=== PATIENT | female | born 1945 | race Caucasian/White ===

== ENCOUNTER 2020-08-23 10:36 | Outpatient (REF) | payer MEDICARE, SELFPAY ==
--- NOTE | ~2020-08-23 | MM_ITS ---
EXAMINATION: BONE DENSITOMETRY CLINICAL INDICATION: Age-related osteoporosis. COMPARISON: Previous BD dated 01/08/2018 and baseline BD dated 09/03/2006. TECHNIQUE: Using a [employer] DXA System (software version: 13.1) manufactured by [employer], dual-energy x-ray absorptiometry was performed of the lumbar spine and left hip. The images are of good technical quality. Summary results are attached. FINDINGS: AP SPINE L1-L4: Current: BMD 1.050 g/cm2, Z-score 0.8, T-score -1.1, osteopenia, 2.4% increase from previous, 7.4% increase from baseline (<5% change is not significant). Prior: BMD 1.025 g/cm2. Baseline: BMD 0.978 g/cm2. LEFT FEMUR, NECK: Current: BMD 0.657 g/cm2, Z-score -0.8, T-score -2.7, osteoporosis. Prior: BMD 0.652 g/cm2. Baseline: BMD 0.725 g/cm2. LEFT FEMUR, TOTAL: Current: BMD 0.732 g/cm2, Z-score -0.4, T-score -2.2, osteopenia, 0.1% increase from previous, 9.7% decrease from baseline (<5% change is not significant). Prior: BMD 0.731 g/cm2. Baseline: BMD 0.811 g/cm2. IDENTIFIED RISK FACTORS: Osteoporosis, history of fracture (adult), tobacco use (current smoker), family history (parental hip fracture), anticonvulsant, menopause. HISTORY OF FRACTURE: Ankle. MEDICATIONS: Calcium supplements or multivitamin, vitamin D. MM/XR DEXA axial skeleton IMPRESSION: 1. DIAGNOSIS: Osteoporosis based on the lowest T-score value of -2.7 in the femoral neck applying World Health Organization criteria. 2. 10-YEAR FRACTURE RISK PREDICTION, FRAX: Major osteoporotic fracture (clinical spine, forearm, hip or shoulder) 57.3%. Hip fracture 48.0%. 3. Treatment Recommendations: NOF guidelines recommend consideration for treatment in postmenopausal women and men age 50 and older presenting with the following: -A hip or vertebral (clinical or morphometric) fracture. -T-score less than or equal to -2.5 at the femoral neck or spine after appropriate evaluation to exclude secondary causes. -Low bone mass at the hip or spine and a 10-year fracture probability by FRAX of greater than or equal to 3% for hip fracture or greater than or equal to 20% for major osteoporotic fracture based on the [place] adapted WHO algorithm. 4. Other Recommendations: All treatment decisions require clinical judgment and consideration of individual patient factors, including patient preferences, comorbidities, previous drug use, risk factors not captured in the FRAX model (e.g. frailty, falls, vitamin D deficiency, increased bone turnover, interval significant decline in bone density) and possible under or overestimation of fracture risk by FRAX. Additional medical evaluation for secondary cause of low bone mineral density may be appropriate. FUTURE SCAN RECOMMENDATION: People with diagnosed cases of osteoporosis or at high risk for fracture should have regular bone mineral density tests. For patients eligible for Medicare, routine testing is allowed once every 2 years. The testing frequency can be increased to one year for patients who have rapidly progressing disease, those who are receiving or discontinuing medical therapy to restore bone mass, or have additional risk factors.
== END 2020-08-23 10:37 | disposition home or self-care (01) ==
LOC: HO.MAMMO 10:36
PROVIDERS: PCP Internal Medicine; Visit Provider Internal Medicine
DX: M81.0 Age-related osteoporosis without current pathological fracture (principal); F17.210 Nicotine dependence, cigarettes, uncomplicated; Z79.899 Other long term (current) drug therapy
CPT/HCPCS: 77080

== ENCOUNTER 2022-09-30 10:09 | Outpatient (REF) | payer MEDICARE, SELFPAY ==
--- NOTE | ~2022-09-30 | MM_ITS ---
EXAMINATION: BONE DENSITOMETRY CLINICAL INDICATION: Age-related osteoporosis without current pathological fracture. COMPARISON: Previous BD dated 08/23/2020 and baseline BD dated 09/03/2006. TECHNIQUE: Using a [employer] DXA System (software version: 13.1) manufactured by [employer], dual-energy x-ray absorptiometry was performed of the lumbar spine and left hip. The images are of good technical quality. Summary results are attached. FINDINGS: AP SPINE L1-L4: Current: BMD 0.997 g/cm2, Z-score 0.4, T-score -1.5, osteopenia, 5.0% decrease from previous, 1.9% increase from baseline (<5% change is not significant). Prior: BMD 1.050 g/cm2. Baseline: BMD 0.978 g/cm2. LEFT FEMUR, NECK: Current: BMD 0.630 g/cm2, Z-score -0.9, T-score -2.9, osteoporosis. Prior: BMD 0.657 g/cm2. Baseline: BMD 0.725 g/cm2. LEFT FEMUR, TOTAL: Current: BMD 0.729 g/cm2, Z-score -0.3, T-score -2.2, osteopenia, 0.4% decrease from previous, 10.1% decrease from baseline (<5% change is not significant). Prior: BMD 0.732 g/cm2. Baseline: BMD 0.811 g/cm2. IDENTIFIED RISK FACTORS: History of adult fracture. Osteoporosis. Current smoker. Parental hip fracture. Menopause. Anticonvulsant. HISTORY OF FRACTURE: Other. MEDICATIONS: Calcium supplement and/or multivitamin. Vitamin D. MM/XR DEXA axial skeleton IMPRESSION: 1. DIAGNOSIS: Osteoporosis based on the lowest T-score value of -2.9 in the femoral neck applying World Health Organization criteria. 2. 10-YEAR FRACTURE RISK PREDICTION, FRAX: According to the guidelines, FRAX calculation should only be performed on patients in the osteopenia bone density category.?Therefore, FRAX was not performed on this patient.? 3. Treatment Recommendations: NOF guidelines recommend consideration for treatment in postmenopausal women and men age 50 and older presenting with the following: -A hip or vertebral (clinical or morphometric) fracture. -T-score less than or equal to -2.5 at the femoral neck or spine after appropriate evaluation to exclude secondary causes. -Low bone mass at the hip or spine and a 10-year fracture probability by FRAX of greater than or equal to 3% for hip fracture or greater than or equal to 20% for major osteoporotic fracture based on the [place] adapted WHO algorithm. 4. Other Recommendations: All treatment decisions require clinical judgment and consideration of individual patient factors, including patient preferences, comorbidities, previous drug use, risk factors not captured in the FRAX model (e.g. frailty, falls, vitamin D deficiency, increased bone turnover, interval significant decline in bone density) and possible under or overestimation of fracture risk by FRAX. Additional medical evaluation for secondary cause of low bone mineral density may be appropriate. FUTURE SCAN RECOMMENDATION: People with diagnosed cases of osteoporosis or at high risk for fracture should have regular bone mineral density tests. For patients eligible for Medicare, routine testing is allowed once every 2 years. The testing frequency can be increased to one year for patients who have rapidly progressing disease, those who are receiving or discontinuing medical therapy to restore bone mass, or have additional risk factors.
== END 2022-09-30 10:10 | disposition home or self-care (01) ==
LOC: HO.MAMMO 10:09
PROVIDERS: PCP Internal Medicine; Visit Provider Internal Medicine
DX: Z12.31 Encounter for screening mammogram for malignant neoplasm of breast (principal); Z13.820 Encounter for screening for osteoporosis; Z78.0 Asymptomatic menopausal state; M81.0 Age-related osteoporosis without current pathological fracture
CPT/HCPCS: 77063; 77067; 77080

== ENCOUNTER → 2022-09-30 10:15 | Outpatient (BNV) | payer MEDICARE, SELFPAY | PROVIDERS: PCP Internal Medicine; Visit Provider Radiology Diagnostic Radiology | DX: M81.0 Age-related osteoporosis without current pathological fracture (principal) | CPT/HCPCS: 77063; 77067; 77080 ==

== ENCOUNTER 2023-10-05 10:07 | Outpatient (REF) | payer MEDICARE, SELFPAY ==
--- NOTE | ~2023-10-05 | MM_ITS ---
EXAMINATION: MM SCREENING DIGITAL BREAST TOMOSYNTHESIS, BILATERAL CLINICAL INFORMATION: Screening. Asymptomatic. COMPARISON: Mammography: This study is compared with prior exams dating back to 2017. TECHNIQUE: Digital breast tomosynthesis is performed in both the craniocaudal and mediolateral oblique views along with computer-aided detection (CAD). Synthesized 2D images are generated from the tomosynthesis. FINDINGS: The breasts are heterogeneously dense, which may obscure small masses (ACR BI-RADS breast composition Category c). There are no significant masses, abnormal calcifications, or other abnormalities. MM/MM tomosynthesis screening BI IMPRESSION: No mammographic evidence of malignancy. ASSESSMENT: BI-RADS BI-RADS 1 - Negative RECOMMENDATION: Routine annual mammography screening. 1 year F/U This examination should not preclude the clinical evaluation of a suspicious palpable abnormality. This patient's information was entered into a reminder system with a target due date for their next mammogram. Electronically signed by: Diana Hood MD 10/29/2023 10:31 PM EDT
== END 2023-10-05 10:08 | disposition home or self-care (01) ==
LOC: HO.MAMMO 10:07
PROVIDERS: PCP Internal Medicine; Visit Provider Internal Medicine
DX: Z12.31 Encounter for screening mammogram for malignant neoplasm of breast (principal)
CPT/HCPCS: 77063; 77067

== ENCOUNTER → 2023-10-05 10:30 | Outpatient (BNV) | payer MEDICARE, SELFPAY | PROVIDERS: PCP Internal Medicine; Visit Provider Radiology Diagnostic Radiology | DX: Z12.31 Encounter for screening mammogram for malignant neoplasm of breast (principal) | CPT/HCPCS: 77063; 77067 ==

== ENCOUNTER 2023-12-21 10:27 | Outpatient (AMB) | payer MEDICARE, SELFPAY ==
--- NOTE | 2023-12-21 10:37 | HO.SPINEOV ---
Intake Visit Reasons: Low back pain with left side sciatica Intake Note: Mrs. Huerta is here today c/o low back pain with left sided sciatica that radiates down to the legs. [employer] Required: No Allergies No Known Allergies Allergy (Verified 12/21/23 10:38) Assessment & Plan Assessment & Plan (1) Lumbar disc herniation: Code(s): M51.26 - Other intervertebral disc displacement, lumbar region Category: Medical Plan Dear Dr jaramillo, Thank you for referring Mrs Huerta to our office today. She is a very nice 78-year-old female with a previous history L5-S1 diskectomy done in 1984, known spinal stenosis at L2-3 who was standing in line on November 11 waiting for something at a store apparently and she felt some tingling go down her leg and then within a few minutes a severe sharp shooting pain down her left leg into her lateral thigh, into her lateral calf going into her ankle. She had to sit down almost immediately and from there the pain only intensified. Over the last 6 weeks her life has been in agony dealing with this pain and discomfort. She tried a number of conservative things like a steroid pack, oxycodone, gabapentin, Motrin, Tylenol etc.. Nothing seems to be touching the pain. She can barely stand and walk and get around the house. She has is in tears all day just trying to get through daily activities of living. She did not do any physical therapy at this point because she just been in too much pain. She did not do any injections either, she has had them in the past and they were not very helpful. No bowel or bladder incontinence. She does have weakness of her left foot however. She did fall down the stairs a few weeks back because her leg would not hold her when she is trying to go downstairs. She underwent an MRI showing a large left L4-5 herniated disc and was sent in for an urgent referral. PMH: History of hypertension, high cholesterol, osteoporosis, osteoarthritis, 3.3 cm AAA. previous back surgery in 1984 at L5-S1, cholecystectomy in 1967. Denies any cardiac, pulmonary, liver, GI, major abdominal surgeries, coagulopathies, cancer Social hx: She has been on and off smoker for better part of her life, she smokes just a few cigarettes a day. She does not drink or use any recreational drugs Medications: Oxycodone, Celebrex, gabapentin, losartan, pravastatin, omeprazole, [place] threes, calcium Celebrex Allergies: None Physical exam: She is awake alert oriented, she comes into the office today and a walker. She is unable to stand up out of a chair on her own, it took me and her to help her get into an upright position. She was screaming in the office in the amount of pain she was in just trying to bear weight on her legs. It seemed to be a little bit better when she was eventually able to get up to the walker. She has a 3/5 weakness of her left dorsiflexion and loss of sensation on the outer ankle into the top of her foot. Imaging review: [facility] MRI done just a few weeks ago shows degenerative disc disease at L2-3 with moderate to severe stenosis, previous surgical changes at L5-S1 with what looks like auto fusion of the disc. At L4-5 on the left there is a large extruded disc fragment severely compressing the left L5 nerve. It seems to be tucked up behind the body of L4. Impression: 78-year-old female presents with a left L5 radiculopathy secondary to a large fragmented disc at L4-5 which is herniated and extended superiorly up into the space behind the body of L4. She has been in agony for 6 weeks, barely able to get around the house for even simple activities. She is barely able to stand up here today in the office without significant amounts of pain. She is also developing foot weakness, which is currently 3/5. I showed her her imaging, discussed the natural history of herniated disc. We did go over the fact that herniated disc generally will go away if given enough time, however there is no way to know how long it will take. Given the amount of agony that she is in and her foot weakness, I think we should move in the direction of surgery. I do not think there will be any role for physical therapy here. She has done shots in the past and they have not been very helpful. I will review her case with Dr. Tai, but I tentatively put her on for this week, December 23. Pt was given risk and benefits of surgery including but not limited to infection, hematoma , nerve injury,durotomy, weakness,bowel/bladder injury, persistent pain, recurrent disc hernia as well as the option to continue with conservative treatment and patient wishes to proceed with surgery. Pt is aware they should stop their motrin, aspirin 7 days prior to surgery. All questions were answered to the best of our ability. If there is anything about this patients medical history that we have overlooked or concerns you have about us proceeding with surgery we would appreciate any input you can offer. Thank you for allowing us to care for your patient. The total time spent with this visit with this patient was 45 minutes reviewing history, physical exam, lumbar imaging review, and implementation of treatment plan or further diagnostic testing Jeison Tai MD,PhD [facility] Coding Level of Care Code New Pt Level 4 (90698) Diagnoses Lumbar disc herniation M51.26
== END 2023-12-21 12:06 | disposition home or self-care (01) ==
PROVIDERS: PCP Internal Medicine; Referring Provider Internal Medicine; Visit Provider Physician Assistant
DX: M51.26 Other intervertebral disc displacement, lumbar region (principal)
CPT/HCPCS: 99204

== ENCOUNTER → 2023-12-21 10:27 | Outpatient (BNVA) | payer MEDICARE, SELFPAY | PROVIDERS: PCP Internal Medicine; Referring Provider Internal Medicine; Visit Provider Physician Assistant | DX: M51.26 Other intervertebral disc displacement, lumbar region (principal) | CPT/HCPCS: 99202 ==

== ENCOUNTER 2023-12-24 11:18 | Day surgery (SDC) | payer MEDICARE, SELFPAY ==
[2023-12-22 10:29] VITALS: BMI 23.5
--- NOTE | 2023-12-22 14:38 | HO.ANESPROP2 ---
Documented by User: Ana Hurtado NP 12/23/23 12:09 HPI - Anesthesia Eval Consult details Narrative: 78yo F for Left L4-5 Microlumber discectomy PMFSH Active Problems Active Problems: All Active Problems Lumbar disc herniation (Acute) Past Medical History Medical History GERD (gastroesophageal reflux disease) Migraine headache Aneurysm of infrarenal abdominal aorta Osteoarthritis Osteoporosis Elevated cholesterol HTN (hypertension) Spinal stenosis Surgical History Surgical History Hx of breast biopsy Hx of cholecystectomy Hx of lumbar discectomy History of esophagogastroduodenoscopy (EGD) H/O colonoscopy Hx of arthroscopic knee surgery Social History Social History Do you presently have visiting nurse or other home services: No Comment: using walker currently due to back issues Patient Tobacco Use Status: Current everyday Tobacco user Tobacco use type: Cigarette Cigarettes Per Day: 3 Years Smoked: 25 Use of substances other than those prescribed or required for medical reasons: No Have you been hit, kicked, punched, or otherwise hurt by someone within the past year? If so, by whom?: No Spiritual Healthcare Practices: none Jehovah'S Witness Healthcare Practices: Jewish Cultural Healthcare Practices: none Are you DNR?: No Advance Directives Information Provided: Yes (as above noted) Advance Directives on File: No Recently lost weight without trying: Yes How much weight loss: 2-13 pounds Eating poorly because of decreased appetite: Yes Nutrition screen score: 4 Nutrition Risks: Surgical patient >75years FDLMP: n/a : No Poor oral hygiene: No Meds Allergies Allergy/AdvReac Type Severity Reaction Status Date / Time No Known Allergies Allergy Verified 12/24/23 11:59 Home Medications ?Medication ?Instructions ?Recorded ?Confirmed ?Last Taken ?Type [id number]-[id number] 250 1 tab PO Q4-6H PRN Migraine 12/22/23 12/22/23 12/17/23 History mg-250 mg-65 mg tablet (Excedrin Headache Migraine) calcium carbonate 600 mg-vitamin 1 tab PO DAILY 12/22/23 12/22/23 12/21/23 History D3 20 mcg (800 unit) chewable tablet (Caltrate 600 plus D) celecoxib 200 mg capsule 200 mg PO DAILY 12/22/23 12/22/23 12/21/23 History coenzyme Q10 100 mg capsule (Co 100 mg PO DAILY 12/22/23 12/22/23 12/21/23 History Q-10) cyclobenzaprine 5 mg tablet 5 - 10 mg PO Q12H PRN muscle spasm 12/22/23 12/22/23 12/17/23 History gabapentin 300 mg capsule 300 mg PO TID 12/22/23 12/22/23 12/21/23 History glucosamine sulfate 500 mg tablet 500 mg PO DAILY 12/22/23 12/22/23 12/21/23 History (Glucosamine) losartan 25 mg tablet 25 mg PO DAILY 12/22/23 12/22/23 12/22/23 History omeprazole 20 mg capsule,delayed 20 mg PO BID 12/22/23 12/22/23 12/24/23 History release oxycodone 5 mg tablet 10 mg PO Q6H PRN Pain 12/22/23 12/22/23 12/24/23 History pravastatin 80 mg tablet 80 mg DAILY 12/22/23 12/22/23 12/21/23 History tizanidine 2 mg tablet 2 mg PO TID 12/22/23 12/22/23 12/17/23 History turmeric 400 mg capsule 400 mg PO DAILY 12/22/23 12/22/23 12/21/23 History Exam Height,Weight and Vital Signs: Height 5 ft 3 in Weight 60.3 kg Pertinent Lab Results Pertinent Lab Results: CBC and BMP 10/2023 from outside facility WNL Assessment and Plan Assessment Anesthesia Assessment: Chart Reviewed Documented by User: Anne Mancilla MD 12/24/23 13:51 HPI - Anesthesia Eval Consult details Narrative: 78yo F for Left L4-5 Microlumber discectomy Patient fell down the stairs about 2.5 to 3 weeks ago. 7 stairs. Fell on face. Leg gave way. No loss of consciousness. Did not seek medical care. No change in character of headaches. Ecchymosis face- healing. [facility] Past Medical History Medical History GERD (gastroesophageal reflux disease) Migraine headache Aneurysm of infrarenal abdominal aorta Osteoarthritis Osteoporosis Elevated cholesterol HTN (hypertension) Spinal stenosis Family History Family history of problems with anesthesia: No Surgical History Surgical History Hx of breast biopsy Hx of cholecystectomy Hx of lumbar discectomy History of esophagogastroduodenoscopy (EGD) H/O colonoscopy Hx of arthroscopic knee surgery History of Problems with Anesthesia: No Social History Social History Do you presently have visiting nurse or other home services: No Comment: using walker currently due to back issues Patient Tobacco Use Status: Current everyday Tobacco user Tobacco use type: Cigarette Cigarettes Per Day: 3 Years Smoked: 25 Use of substances other than those prescribed or required for medical reasons: No Have you been hit, kicked, punched, or otherwise hurt by someone within the past year? If so, by whom?: No Spiritual Healthcare Practices: none Jehovah'S Witness Healthcare Practices: Jewish Cultural Healthcare Practices: none Are you DNR?: No Advance Directives Information Provided: Yes (as above noted) Advance Directives on File: No Recently lost weight without trying: Yes How much weight loss: 2-13 pounds Eating poorly because of decreased appetite: Yes Nutrition screen score: 4 Nutrition Risks: Surgical patient >75years FDLMP: n/a : No Poor oral hygiene: No Meds Allergies Allergy/AdvReac Type Severity Reaction Status Date / Time No Known Allergies Allergy Verified 12/24/23 11:59 Home Medications ?Medication ?Instructions ?Recorded ?Confirmed ?Last Taken ?Type dnhwblm-swvhjokowqphm-sruzonvb 250 1 tab PO Q4-6H PRN Migraine 12/22/23 12/22/23 12/17/23 History mg-250 mg-65 mg tablet (Excedrin Headache Migraine) calcium carbonate 600 mg-vitamin 1 tab PO DAILY 12/22/23 12/22/23 12/21/23 History D3 20 mcg (800 unit) chewable tablet (Caltrate 600 plus D) celecoxib 200 mg capsule 200 mg PO DAILY 12/22/23 12/22/23 12/21/23 History coenzyme Q10 100 mg capsule (Co 100 mg PO DAILY 12/22/23 12/22/23 12/21/23 History Q-10) cyclobenzaprine 5 mg tablet 5 - 10 mg PO Q12H PRN muscle spasm 12/22/23 12/22/23 12/17/23 History gabapentin 300 mg capsule 300 mg PO TID 12/22/23 12/22/23 12/21/23 History glucosamine sulfate 500 mg tablet 500 mg PO DAILY 12/22/23 12/22/23 12/21/23 History (Glucosamine) losartan 25 mg tablet 25 mg PO DAILY 12/22/23 12/22/23 12/22/23 History omeprazole 20 mg capsule,delayed 20 mg PO BID 12/22/23 12/22/23 12/24/23 History release oxycodone 5 mg tablet 10 mg PO Q6H PRN Pain 12/22/23 12/22/23 12/24/23 History pravastatin 80 mg tablet 80 mg DAILY 12/22/23 12/22/23 12/21/23 History tizanidine 2 mg tablet 2 mg PO TID 12/22/23 12/22/23 12/17/23 History turmeric 400 mg capsule 400 mg PO DAILY 12/22/23 12/22/23 12/21/23 History Exam Height,Weight and Vital Signs: Height 5 ft 3 in Weight 60.3 kg Vital Signs Temp Pulse Resp BP Pulse Ox O2 Del Method 12/24/23 12:26 97.9 F 71 18 120/61 98 Room Air Airway Mallampati Class: II TM Dist: >3cm Neck ROM: Full Loose/Missing/Broken Teeth: No Heart: RRR Lungs: CTAB Assessment and Plan Assessment Anesthesia Assessment: Anesthesia Plan Discussed and Chart Reviewed Final Anesthetic Review Family History of Problems with Anesthesia: No History of Problems with Anesthesia: No NPO: Yes ASA Class: III Final Preanesthetic Review: No Changes in Pt Med Stat, Meds/Allgs Chart Reviewed, Consent Obtained/Reviewed and Anes Risks/Benef Reviewed Patient Risk: Intermediate Procedure Risk: Low Assessment/Block/Sedation in SS: Assess/Block/Sedation-SS Anesthetic Plan Anesthetic Plan: GA Disposition: Standard PACU
[2023-12-24] VITALS (11 sets, daily range): BP systolic 120–159; BP diastolic 50–62; PULSE 71–90; RESP 12–18; TEMP 36.1–36.6; O2SAT 95–100; BMI 23.2
[2023-12-24] MEDS: Gabapentin 300 MG CAPSULE PO (12:16)
[2023-12-24] MEDS: Lactated Ringers 1,000 ML 100 ML IVCONT (12:16)
[2023-12-24] MEDS: methocarbamoL 750 MG TABLET PO (12:16)
--- NOTE | 2023-12-24 12:23 | PC.NURSE ---
Dr. Mancilla aware that patient stated that she fell approx. 2.5 weeks ago down 7 stairs and hit her head on a table corner due to leg weakness per pt. Patient stated that she did not go to ER. Stated that she did not lose conciousness or feel as if she had a concussion. Healing bruising noted to forehead and left side of face/jaw. Per doctor - ok to proceed no interventions at this time.
--- NOTE | 2023-12-24 12:26 | MHC.SHP ---
Pre-Procedural Eval Section A - 24 Hr Update-Section A only Date of Service: 12/24/23 The patient is an INPATIENT: No Section B - Complete if H&P > 30 days Chief Complaint: Other intervertebral disc displacement, lumbar Details of Present Illness: Left lumbar radiculopathy Allergies: Allergies Allergy/AdvReac Type Severity Reaction Status Date / Time No Known Allergies Allergy Verified 12/24/23 11:59 Review of Systems Sugical H&P ROS: Negative: Constitution, Cardiovascular, Respiratory, Neurological, Psychiatric, Hem-Onc, Allergic/Immunologic, Gastrointestinal, Genitourinary, Musculoskeletal, Integumentary, Endocrine and Eyes/Ears/Nose/Throat Exam Surgical H&P Exam: Normal: HEENT, Normal: Heart, Normal: Lungs, Normal: Extremities, Normal: Abdomen and Normal: Skin and Significant Findings: Neurological (Partial footdrop left) Plan Diagnosis/Plan: Unchanged I have reviewed the history and physical and performed a pertinent physical examination on my patient. No changes have occurred unless specified. Left L4-5 microdiskectomy Time Spent With Patient Time: Total time managing care of this patient today _5___ minutes.
--- NOTE | 2023-12-24 14:20 | W.PM.OPN ---
Operative Note Operative Note Date of Service: 12/24/23 Narrative: Preoperative diagnosis: Left L4, L5 lumbar radiculopathy due to disc herniation Postoperative diagnosis: Same Procedure: Left L 4-5 lumbar microdiskectomy with microscope Surgeon: Daniel Tai MD, PhD Central Processing Technician: AUGUSTINA Breen This 78-year-old female presented with severe left leg pain and numbness and weakness. MRI shows a large extruded disc herniation with cranial migration behind the body of L4 compressing the L4 and L5 nerve roots. The patient was offered a lumbar microdiskectomy to decompress the nerve root. The procedure complications were explained. The patient was consented. The patient was brought to the operating room and endotracheally intubated. The patient was turned in a prone position on the Carlin frame. Prepping and draping was done followed by time-out. A mid lumbar incision was made followed by release of the paravertebral muscles on the left side to expose the L4-5 interspace. An intraoperative x-rays obtained to confirm the correct level. The microscope was brought in. A left L4 laminotomy was done followed by opening of the flavum ligament. The L5 nerve root was identified and retracted medially to expose the L4-5 disc space. I advanced a long nerve hook along the medial wall of the L4 pedicle and eventually I was able to retrieve a very large fragment from under the thecal sac. I was not satisfied as of yet as I thought he should be more and therefore went in again with a curved pituitary and I was able to retrieve an even larger fragment from the axilla of the L4 nerve root. Then the nervous structures started pulsating as a sign of adequate decompression. Hemostasis was done. The microscope was removed. Marcaine was injected intramuscularly.The incision was closed in two layers. Steri-Strips used to approximate the incision. An op-site were taken there was used to cover the incision. All sponge and needle counts were correct. Patient was extubated and transported in stable condition to recovery room. this procedure was done with the aid of a physician assistant loan processor who performed the initial exposure until the microscope was brought in and performed the closure of the incision. Anesthesia: General Blood loss: 25 mL Complications: None Specimen: None Surgical time: 15 minutes Disposition: Discharge home
--- NOTE | 2023-12-24 14:28 | PM.DS ---
DS: Providers Provider Date of Service: 12/24/23 Primary care physician: Prasad Claire MD DS: Summary Time Attestation Discharge Coordination Time (in mins): 15 Quality: Safe Use of Opioids Does Pt have an Active Cancer Diagnosis on the Problem List?: No Quality: Stroke Does the patient have a stroke diagnosis?: No Physical Exam Vital Signs: Vital Signs: Last Vital Signs Temp 97.9 F 12/24/23 12:26 Pulse 71 12/24/23 12:26 Resp 18 12/24/23 12:26 BP 120/61 12/24/23 12:26 Pulse Ox 98 12/24/23 12:26 O2 Del Method Room Air 12/24/23 12:26 BMI result Body Mass Index 23.2 Discharge Plan Discharge Patient Disposition: Home, Self-Care Referrals: Prasad Claire MD [Primary Care Provider] - 1 Week Discharge Medications: Continued tizanidine 2 mg tablet 2 mg PO TID pravastatin 80 mg tablet 80 mg DAILY losartan 25 mg tablet 25 mg PO DAILY omeprazole 20 mg capsule,delayed release(DR/EC) 20 mg PO BID cyclobenzaprine 5 mg tablet 5 - 10 mg PO Q12H PRN (Reason: muscle spasm) glucosamine sulfate [Glucosamine] 500 mg Tablet 500 mg PO DAILY Rx Instructions: administer with a meal coenzyme Q10 [Co Q-10] 100 mg Capsule 100 mg PO DAILY Caltrate 600 plus D 600 mg-20 mcg (800 unit) Tablet,Chewable 1 tab PO DAILY gabapentin 300 mg capsule 300 mg PO TID oxycodone 5 mg tablet 10 mg PO Q6H PRN (Reason: Pain) turmeric 400 mg Capsule 400 mg PO DAILY Held celecoxib 200 mg capsule 200 mg PO DAILY Hold Instructions: Resume on 12/25/23. Excedrin Migraine 250-250-65 mg Tablet 1 tab PO Q4-6H PRN (Reason: Migraine Headache) Hold Instructions: Resume on 12/25/23. Discharge Orders: Discharge Order (Routine); Ordered 12/24/23 Ordered By: Cecilio Foster Diet: Advance to usual diet Activity on Discharge: As tolerated Activity Restrictions/Additional Instructions: After your spinal surgery we ask you to observe the following restrictions/guidelines: Activity: It is normal to feel some discomfort as you increase your activity, but that will improve with time. We ask you avoid heavy lifting or acitivities that cause pain. As a general rule, 8lbs is a safe limit for lifting right after surgery. Walk as much as you feel comfortable but not to exhaustion. You will feel extra tired the first few days after surgery. Stay well hydrated. It is OK to walk up and down stairs You may return to driving when you are off narcotics (such as vicodin, oxycodone, dilaudid, etc), and you are back to normal functional capacity. If you have any concerns please check with office before driving. Return to work is specific to each patient and each surgery, so please speak with your doctor/PA at first follow up. Please bring paperwork such as FMLA at that time if you need it filled out. Medications: You filled Oxycodone 5mg for total quantity 112 pills on 12/10/23, please use these for pain control that persists despite OTC medications. Call our office next week if you need additional medication. We recommend you take 1,000mg Tylenol every 8 hours for the first few weeks after surgery, if you do not have any liver issues and can tolerate this medication. Do not exceed 4,000mg daily. We will give you a short supply of narcotics after surgery (usually one weeks worth). If you need more please call the office but do not use more than prescribed. You will need to give our office 48 hours notice if you need narcotics refilled and we do not fill narcotics on weekends or evenings. If you are on a narcotic, it is a good idea to take a stool softener such as colace or senna to avoid constipation If you take blood thinner such as aspirin, Plavix, Coumadin, Effient, Eliquis etc for conditions such as Afib, DVT, Pulmonary embolus, coronary disease, stents etc please speak with your surgeon about specific details as to when you can resume these medications. You can resume NSAIDs on post op day 1 (eg: Motrin, Naproxen, etc). Follow up: Please call the office, , after surgery to arrange a 3 week follow up for wound check. Wound Care: You may remove your dressing on the first day after surgery. ?You may ?leave open to air. Please do not remove the steri strips underneath. they will fall off on their own in one week. IT IS NORMAL FOR THE WOUND TO OOZE OR BE BLOODY FOR A FEW DAYS AFTER SURGERY. ?IF THIS HAPPENS JUST PLACE NEW DRESSING OVER IT TO AVOID STAINING CLOTHES. You may shower on post op day # 1 We ask that you do not let the water soak the wound. If it does get wet, just towel dry lightly. Please do not scrub your incision or place any type of chemical/ointment on the wound. No tub baths, pools or jacuzzis for one month. If you have any leaking or redness from your wound, or fevers, please call the office. Print Language: Italian
[2023-12-24] MEDS: fentaNYL citrate/PF 100 MCG/2 ML VIAL 25 MCG IVPUSH ×2 (15:20→15:25)
[2023-12-24] MEDS: oxyCODONE HCl Immed Release 5 MG TABLET PO (15:49)
== END 2023-12-24 16:26 | disposition home or self-care (01) ==
PROVIDERS: PCP Internal Medicine; Visit Provider Neurological Surgery
PROC: (CPT 63030; principal; 2023-12-24 14:50)
DX: M51.26 Other intervertebral disc displacement, lumbar region (principal); M51.17 Intervertebral disc disorders with radiculopathy, lumbosacral region; M19.90 Unspecified osteoarthritis, unspecified site; M81.0 Age-related osteoporosis without current pathological fracture; I71.43 Infrarenal abdominal aortic aneurysm, without rupture; I10 Essential (primary) hypertension; E78.00 Pure hypercholesterolemia, unspecified; Z79.899 Other long term (current) drug therapy; Z99.89 Dependence on other enabling machines and devices; Z98.890 Other specified postprocedural states; F17.210 Nicotine dependence, cigarettes, uncomplicated
CPT/HCPCS: 63030; J0131; J0690; J1100; J2003; J2405; J2704; J3010

== ENCOUNTER → 2023-12-24 11:18 | Outpatient (BNV) | payer MEDICARE, SELFPAY | PROVIDERS: PCP Internal Medicine; Visit Provider Neurological Surgery | DX: M51.26 Other intervertebral disc displacement, lumbar region (principal) | CPT/HCPCS: 63030; 99499 ==

== ENCOUNTER 2024-01-14 10:58 | Outpatient (AMB) | payer MEDICARE, SELFPAY ==
--- NOTE | 2024-01-14 11:05 | A.SPINEOV_ITS ---
Intake Visit Reasons: 1st post op Manager Valuation Required: No Allergies No Known Allergies Allergy (Verified 12/24/23 11:59) Assessment & Plan Assessment & Plan (1) Left hip pain: Code(s): M25.552 - Pain in left hip Category: Medical Plan Procedure: Left L 4-5 lumbar microdiskectomy Adrienne comes in today for her 1st postoperative visit after having a left-sided L4-5 lumbar microdiskectomy completed for severe left-sided shooting radiculopathy. She reports that the pain that she was having shooting down her leg has completely resolved since the surgery. Unfortunately she has had quite a bit of pain in her left hip since the surgery very well localized to the left hip joint. She feels increased pain when standing up from a seated position and denies any shooting or radicular pains down her legs when experiencing her newer left hip pain. It is unclear whether she had this preoperatively has now just noticed it since her more severe pain has subsided. Other than that, she is very satisfied with the surgery and feels that 100% of her severe shooting pain has been relieved. The pain she describes now is described as deep and sharp. No new neurological deficits. The patient rises from a seated position with the assistance of a chair predominantly citing her sharp left hip pain as the reason she needs support. When standing she grabs the area of her lateral thigh near the trochanteric bursa. Her posterior incision site is scabbed over, clean, dry, intact. I would like to see Adrienne again in 6 weeks for a subsequent follow-up visit. In the meantime I will be ordering an x-ray of her left hip to r/o any acute hip pathology. She also stated that she would be following up with her primary care for referral to an orthopedic provider to discuss her left hip issues. I informed her that I would be more than happy to refer her to our colleague Dr. Melendez in Orthopedic surgery to evaluate her for her hip issue instead. She is agreeable to this so I will place the referral. Cecilio Tai MD,PhD [facility] Orders: Orders XR hip LT min 2V Today M25.552 - Pain in left hip Referrals Orthopedics Referral M25.552 - Pain in left hip Coding Level of Care Code Global (41426) Diagnoses Left hip pain M25.552
== END 2024-01-14 11:13 | disposition home or self-care (01) ==
PROVIDERS: PCP Internal Medicine; Visit Provider Physician Assistant
DX: M25.552 Pain in left hip (principal)
CPT/HCPCS: 99024

== ENCOUNTER 2024-01-14 10:58 | Outpatient (REF) | payer MEDICARE, SELFPAY | END 2024-01-14 10:59 | disposition home or self-care (01) | LOC: HO.HOSX 10:58 | PROVIDERS: PCP Internal Medicine; Visit Provider Physician Assistant | DX: M25.552 Pain in left hip (principal) | CPT/HCPCS: 73502; 99212 ==

== ENCOUNTER 2024-02-16 08:59 | Outpatient (REF) | payer MEDICARE, SELFPAY ==
--- NOTE | ~2024-02-16 | XR_ITS ---
EXAMINATION: XR PELVIS CLINICAL INFORMATION: M25.559 - Pain in unspecified hip COMPARISON: None available. TECHNIQUE: AP view of the pelvis. FINDINGS: Mild constipation. No organomegaly. No radiopaque calculi seen in the pelvis. No bony abnormality. The soft tissues are normal. XR/XR pelvis 1-2V IMPRESSION: Mild constipation. Electronically signed by: Parviz Bell MD 02/18/2024 03:40 PM EST
== END 2024-02-16 09:00 | disposition home or self-care (01) ==
LOC: HO.HOSX 08:59
PROVIDERS: Visit Provider Physician Assistant
DX: M25.559 Pain in unspecified hip (principal); M25.552 Pain in left hip; Z98.890 Other specified postprocedural states
CPT/HCPCS: 72170; 99202

== ENCOUNTER 2024-02-16 10:54 | Outpatient (AMB) | payer MEDICARE, SELFPAY ==
--- NOTE | 2024-02-16 11:03 | A.OFFVIS_ITS ---
Intake Visit Reasons: New Pt - Left hip pain Intake Note: Adrienne is a 78 year old female who presents today as a new patient for a evaluation of her left hip pain. No hx of injruy. Hx of Back surgery on 12/24/23. Patient reports having pain in the lateral aspect of the hip and sometimes moves down to her calf. Patient mentions that her pain is worse when she is getting up in the morning. She hasn't tried any medications to help with relief. Allergies No Known Allergies Allergy (Verified 02/16/24 11:08) HPI HPI New Pt - Left hip pain: Details: Ms. Huerta is a 78-year-old female who presents to the office today for evaluation of left hip pain. She reports that she recently had surgery with Dr. Cai on 12/24/2023 for L4-L5 lumbar microdiscectomy for severe radiculopathy . She reports that after the surgery she had significant release in left leg pain numbness and weakness. However she reports that she did develop pain after surgery and gestures to the glute region as well as the lateral aspect of the hip. She denies any groin pain. [facility] Medical History GERD (gastroesophageal reflux disease) Migraine headache Aneurysm of infrarenal abdominal aorta Osteoarthritis Osteoporosis Elevated cholesterol HTN (hypertension) Spinal stenosis Surgical History Hx of breast biopsy Hx of cholecystectomy Hx of lumbar discectomy History of esophagogastroduodenoscopy (EGD) H/O colonoscopy Hx of arthroscopic knee surgery Social History (Updated 02/16/24 @ 11:10 by Mxa Green) Do you presently have visiting nurse or other home services: No Alcohol intake: never Comment: using walker currently due to back issues Patient Tobacco Use Status: Current everyday Tobacco user Tobacco use type: Cigarette Cigarettes Per Day: 3 Years Smoked: 25 Current occupational status: retired Review of Systems Const All systems reviewed & are unremarkable except as noted in HPI and below Physical Exam Const General: cooperative, healthy appearing and no acute distress Resp Effort & Inspection: normal respiratory effort and able to speak in complete sentences Cardio Rate: regular rate Peripheral pulses: Peripheral pulses 2+ throughout GI Palpation (GI): Soft to palpation Skin Lesions: no lesions Rashes: no rashes Extrem Other: Left hip: Full internal and external rotation without reports of groin pain. Full flexion and extension. Slight tenderness to palpation over the greater trochanteric bursa. 5/5 strength with resisted hip flexion, knee extension, abduction, and abduction. Able to perform straight leg raise. NVI. Assessment & Plan Assessment & Plan (1) Lumbar disc herniation: Code(s): M51.26 - Other intervertebral disc displacement, lumbar region Category: Medical (2) Left hip pain: Code(s): M25.552 - Pain in left hip Category: Medical Plan Ms. Huerta is a 78-year-old female who presents to the office today for evaluation of left hip pain. She reports that she recently had surgery with Dr. Cai on 12/24/2023 for L4-L5 lumbar microdiscectomy for severe radiculopathy. She reports that after the surgery she had significant release in left leg pain numbness and weakness. However she reports that she did develop pain after surgery and gestures to the glute region as well as the lateral aspect of the hip. She denies any groin pain. While in the office today the patient does have some slight tenderness to palpation of the greater trochanteric bursa. However, the patient declines injection at this time. Additionally we discussed the role of intra-articular cortisone injection for the left hip, however, the patient denies any groin pain on physical exam and does not have any range of motion restriction. She reports that the majority of her pain is located in the glute area. She does have a follow-up with Cecilio Foster PA-C, in the [facility] on 02/25/2024. I recommend that she continues to follow with the [facility] to continue monitoring resolution of symptoms. Should she continue to have greater trochanteric bursa pain or a new onset of groin pain she will contact me and we proceed with scheduling for cortisone injection. X-rays of the pelvis and left hip were obtained on 01/14/2024 as well as additional views in the office today and were reviewed by me, Sharon Felton PA-C, revealed arthritic changes. No acute fracture or dislocation. Orders: Orders XR pelvis 1-2V Today M25.559 - Pain in unspecified hip Coding Level of Care Code New Pt Level 3 (47869) Diagnoses Lumbar disc herniation M51.26 Left hip pain M25.552
== END 2024-02-16 11:23 | disposition home or self-care (01) ==
PROVIDERS: PCP Internal Medicine; Visit Provider Physician Assistant
DX: M51.26 Other intervertebral disc displacement, lumbar region (principal); M25.552 Pain in left hip
CPT/HCPCS: 99203

== ENCOUNTER → 2024-02-16 10:57 | Outpatient (BNV) | payer MEDICARE, SELFPAY | PROVIDERS: Visit Provider Radiology Diagnostic Radiology | DX: R10.2 Pelvic and perineal pain (principal); K59.00 Constipation, unspecified | CPT/HCPCS: 72170 ==

== ENCOUNTER 2024-02-25 10:51 | Outpatient (AMB) | payer MEDICARE, SELFPAY ==
--- NOTE | 2024-02-25 10:52 | A.SPINEOV_ITS ---
Intake Visit Reasons: 2nd post op Intake Note: Ms. Huerta is here for her 2nd post op. Drop Hammer Setter Up Required: No Allergies No Known Allergies Allergy (Verified 02/25/24 10:53) Assessment & Plan Assessment & Plan (1) Lumbar disc herniation: Code(s): M51.26 - Other intervertebral disc displacement, lumbar region Category: Medical Plan Procedure: Left L 4-5 lumbar microdiskectomy Adrienne comes in today for her second postoperative visit. To recap she was initially seen in clinic for severe left leg pain and numbness and weakness. Since her last visit she was able to follow up with our colleagues from Orthopedics who evaluated her for her left hip. She reports that they may be doing a corticosteroid injection in her left hip to help relieve some of the pain she has on that side. Other than that she feels her back pain is much more manageable, and she is able to complete her activities of daily living without significant issue. She is very functional throughout the day and only really has difficulty when attempting to navigate stairs. No new neurological deficits. The patient ambulates well and rises from seated position without difficulty. Her posterior incision site is closed and well healed. I would like Adrienne to continue following up with orthopedics as needed. We do not need any further continued routine follow up with her. Cecilio Tai MD,PhD [facility] Coding Level of Care Code Global (59806) Diagnoses Lumbar disc herniation M51.26
== END 2024-02-25 11:17 | disposition home or self-care (01) ==
PROVIDERS: Visit Provider Physician Assistant
DX: M51.26 Other intervertebral disc displacement, lumbar region (principal)
CPT/HCPCS: 99024

== ENCOUNTER → 2024-02-25 10:51 | Outpatient (BNVA) | payer MEDICARE, SELFPAY | PROVIDERS: Visit Provider Physician Assistant | DX: Z09 Encounter for follow-up examination after completed treatment for conditions other than malignant neoplasm (principal); Z87.39 Personal history of other diseases of the musculoskeletal system and connective tissue; Z98.890 Other specified postprocedural states | CPT/HCPCS: 99212 ==

== ENCOUNTER 2024-11-11 10:39 | Outpatient (REF) | payer MEDICARE, SELFPAY ==
--- OUTSIDE RECORDS SUMMARY | 2024-11-10 10:08 | XMS_ITS | Encounter Summary ---
Author Organization [facility] Address [address] [facility] [address] [place] [address] Phone Care Team Providers Care Hr Systems Analyst Name Role Phone Prasad Claire MD Primary Care Provider [phone] Prasad Claire MD Unavailable [phone] Alan Olsen MD Unavailable Winston Restrepo MD Unavailable [phone] Chirs Metz MD Unavailable Reason for Referral * Hospital - Outpatient - Closed Specialty Diagnoses / Procedures Referred By Lillie siddiqui Referred To Contact Radiology Diagnoses Infrarenal abdominal aortic aneurysm (AAA) without rupture Procedures US Aorta Duplex Complete Shilpi Thornton PA-C [address] [place] [address] Phone: tel: fax: [email or web address] Referral ID Status Reason Start Date Expiration Date Visits Re quested Visits Authorized [id number] Closed 11/02/2024 1 1 Reason for Visit * Hospital - Outpatient - Closed Specialty Diagnoses / Procedures Referred By Lillie siddiqui Referred To Contact Radiology Diagnoses Infrarenal abdominal aortic aneurysm (AAA) without rupture Procedures US Aorta Duplex Complete Shilpi Thornton PA-C [address] [place] [address] Phone: tel: fax: [email or web address]:[email or web address] Referral ID Status Reason Start Date Expiration Date Visits Re quested Visits Authorized [id number] Closed 11/02/2024 1 1 Encounter Details Date Type Department Care Team (Latest Contact Info) Description 11/10/2024 10:08 AM EDT - 11/10/2024 11:59 PM EDT Hospital Encounter [address] [address] Shilpi Thornton PA-C [address] [place] [address] [email or web address] Arrived Discharge Disposition: Home or Self Care Social History Tobacco Use Types Packs/Day Years Used Date Smoking Tobacco: Some Days Cigarettes 0.5 26 Smokeless Tobacco: Never Comments:2-3 cigarette a wee k if that-noted 10/26/23 10 cigarettes a week-noted 11/06/23 3 cigarette a week-noted 12/10/23 3-4 cigarettes a week-noted 02/11/24 6 cigarettes Qweek-noted 05/23/24 Alcohol Use Standard Drinks/Week Comments Not Currently 0 (1 standard drink = 0.6 oz pur e alcohol) last drink 09/2023 Education Answer Date Recorded Are you interested in more education? Not on claribel e 06/06/2022 Are you concerned about learning? Not on file 06/06/2022 No 06/06/2022 No 06/06/2022 Digital Access Answer Date Recorded No 07/02/2022 No 07/02/2022 Reliable internet access at home? Not on file 07/02/2022 Device with a working camera? Not on file Intimate Partner Violence Answer Date R ecorded Denied Basic Needs Not on file 10/20/2023 In the past 12 months have y ou been in a relationship with a person who hurts, threatens, or tries to control you? No 10/20/2023 Worried food would run out Not on file 10/19 In the past 12 months have y ou been in a relationship with a person who hurts, threatens, or tries to control you? No 10/20/2023 Comments No Sex and Gender Information Value Date Recorded Sex Assigned at Female 08/03/2018 8:36 AM EDT Legal Sex Female 10:08 PM EDT Gender Identity Female 08/03/2018 8:36 AM EDT Sexual Orientation Choose not to disclose 2018 8:36 AM EDT documented as of this encounter Medications at Time of Discharge pdnoaxe-aunbxfooenjgc-ddl feine (EXCEDRIN MIGRAINE) 250-250-65 mg per tablet Take 1 tablet by mouth every 6 (six) hours as needed for pain (specific location in comments). Ca cit-D3-mag#00-qbha-fbrs-m an-bor (CALTRATE 600+D) 600 mg calcium- 800 unit-50 mg Tab Take 1 tablet by mouth as directed. Once daily 5 days a week celecoxib (CELEBREX) 200 MG capsuleIndications:Chroni c bilateral low back pain without sciatica,Primary osteoarthritis, unspecified site Take 1 capsule (200 mg total) by mouth 2 (two) times a day with meals. 180 capsule 3 5 coenzyme Q10 10 mg capsule Take 100 mg by mouth daily. 0 cyclobenzaprine (FLEXERIL) 5 MG tabletIndications:Acute bilateral low back pain with left-sided sciatica 1-2 tablets q 12 hours prn back spasms 30 tablet 4 gabapentin (NEURONTIN) 300 MG capsuleIndications:Primar y osteoarthritis involving multiple joints 600mg po tid 540 capsule 3 4 glucosamine HCl 750 mg Tab Take 1 tablet by mouth daily. hydrOXYzine HCL (ATARAX) 10 MG tabletIndications:Anxiety Take 1 tablet (10 mg total) by mouth 3 (three) times a day as needed for anxiety. 10 tablet 5 losartan (COZAAR) 25 MG tabletIndications:Essenti al hypertension TAKE 1 TABLET DAILY 90 tablet 3 5 Medication-Free Text Tumeric Take 1 capsule by mouth once daily. omeprazole (PRILOSEC) 20 MG capsule TAKE 1 CAPSULE TWICE DAILY 180 capsule 3 4 oxyCODONE 5 MG immediate release tabletIndications:Bilater al hip pain,Acute low back pain with sciatica, sciatica laterality unspecified, unspecified back pain laterality Take 2 tablets (10 mg total) by mouth every 8 (eight) hours as needed for pain (specific location in comments) (Back and leg pain). Partial fill ok 42 tablet 5 pravastatin (PRAVACHOL) 80 MG tabletIndications:Pure hypercholesterolemia TAKE 1 TABLET DAILY 90 tablet 3 5 tiZANidine (ZANAFLEX) 2 MG tabletIndications:Chronic bilateral low back pain without sciatica TAKE 1 TABLET(2 MG) BY MOUTH EVERY 8 HOURS NEEDED FOR MUSCLE SPASMS 30 tablet 5 documented as of this encounter Plan of Treatment Upcoming Encounters Date Type Department Care Team (Late st Contact Info) Description 11/15/2024 9:40 AM EDT Office Visit [facility] Spine Medicine [address] [place] [address] [place] [address] Capo Vega MD [address] [place] [address], [address] [place] [address] 11/28/2024 3:00 PM EDT Office Visit [facility] Internal Medicine [address] [place] [address] Prasad Claire MD [address] [place] [address] 01/17/2025 11:30 AM EST Office Visit [facility] [address] [place] [address] [place] [address] Chidi Levy DO [address] [place] [address] documented as of this encounter Procedures Procedure Name Priority Date/Time Associated Diagnosis Comments US AORTA DUPLEX COMPLETE Routine 11/10/2024 10:46 AM EDT Infrarenal abdominal aortic aneurysm (AAA) without rupture documented in this encounter Results * US Aorta Duplex Complete (11/10/2024 10:46 AM EDT) Anatomical Region Laterality Modality Aorta Ultrasound 11/10/2024 10:4 7 AM EDT Narrative 11/10/2024 11:03 AM EDT US AORTA DUPLEX COMPLETE Referring clinician's provided indication for this examination in Epic: AAA, surveillance TECHNIQUE: A duplex ultrasound evaluation of the abdominal aorta and iliac arteries as well as the inferior vena cava was performed using a combination of olivarez scale imaging, color duplex and spectral Doppler analysis. COMPARISON: None FINDINGS: Exam Quality: Technically adequate exam demonstrates: Aorta: Proximal: Ectatic Mid: Normal Distal: Aneurysmal IVC: Patent with normal spectral Doppler waveforms. Right Common Iliac Artery: Ectatic Left Common Iliac Artery: Ectatic Duplex: Proximal aorta: Peak systolic velocity (cm/s): 97.2 Aorta Diameter Proximal (cm): 2.3 x 2.1 Mid aorta: Peak systolic velocity (cm/s): 104 Aorta Diameter Mid (cm): 1.9 x 1.9 Distal aorta: Peak systolic velocity (cm/s): 127 Aorta Diameter Distal (cm): 3.4 x 3.4 Iliac arteries: Right common Iliac artery: Peak systolic velocity (cm/s): 153 Diameter(cm): 1.1 x 1.3 Left common Iliac artery: Peak systolic velocity (cm/s): 184 Diameter (cm): 1.2 x 1 IMPRESSIONS: * Abdominal aortic aneurysm measuring up to 3.4 cm. Procedure Note Eloina Castellano MD - 11/10/2024 US AORTA DUPLEX COMPLETE Referring clinician's provided indication for this examination in Epic:AAA, surveillance TECHNIQUE: A duplex ultrasound evaluation of the abdominal aorta and iliacarteries as well as the inferior vena cava was performed using acombination of olivarez scale imaging, color duplex and spectral Doppleranalysis. COMPARISON: None FINDINGS: Exam Quality: Technically adequate exam demonstrates: Aorta: Proximal: Ectatic Mid: Normal Distal: Aneurysmal IVC: Patent with normal spectral Doppler waveforms. Right Common Iliac Artery: Ectatic Left Common Iliac Artery: Ectatic Duplex: Proximal aorta: Peak systolic velocity (cm/s): 97.2 Aorta Diameter Proximal (cm): 2.3 x 2.1 Mid aorta: Peak systolic velocity (cm/s): 104 Aorta Diameter Mid (cm): 1.9 x 1.9 Distal aorta: Peak systolic velocity (cm/s): 127 Aorta Diameter Distal (cm): 3.4 x 3.4 Iliac arteries: Right common Iliac artery: Peak systolic velocity (cm/s): 153 Diameter(cm): 1.1 x 1.3 Left common Iliac artery: Peak systolic velocity (cm/s): 184 Diameter (cm): 1.2 x 1 IMPRESSIONS: * Abdominal aortic aneurysm measuring up to 3.4 cm. us Shilpi Thornton PA-C IMG US ABDOMEN Final Result documented in this encounter Visit Diagnoses Diagnosis Infrarenal abdominal aortic aneurysm (AAA) without rupture documented in this encounter Additional Health Concerns Assessment Noted Time PHQ-2 Depression Total Score: 0 10/20/19 24 10:07 AM EDT documented as of this encounter Care Teams Hr Systems Analyst Relationship Specialty Start Date End Date Prasad Claire MD [address] [place] [address] [email or web address] PCP - General 11/27/16 Prasad Claire MD [address] [place] [address] [email or web address] Insurance Assigned Provider 05/16/23 Alan Olsen MD [address] [place] [address] [place] [address] Neurosurgery 11/28/19 Winston Restrepo MD [address] [place] [address] Dr NGUY[place] [address] Neurosurgery 12/01/19 Chris Metz MD [address] [place] [address] Interventional Pain Management 12/01/19 documented as of this encounter Additional Source Comments The information contained in this document represents components of the legal health record. It is not the complete legal health record.[facility]
--- NOTE | ~2024-11-11 | MM_ITS ---
EXAMINATION: MM SCREENING DIGITAL BREAST TOMOSYNTHESIS, BILATERAL CLINICAL INFORMATION: Screening. Asymptomatic. COMPARISON: Mammography: Comparison is made with available priors TECHNIQUE: Digital breast mammography with tomosynthesis is performed in both the craniocaudal and mediolateral oblique views along with computer-aided detection (CAD). FINDINGS: The breasts are heterogeneously dense, which may obscure small masses. There are no significant masses, abnormal calcifications, or other abnormalities. MM/MM tomosynthesis screening BI IMPRESSION: No mammographic evidence of malignancy. ASSESSMENT: BI-RADS Category 1: Negative RECOMMENDATION: Routine annual mammography screening. 1 year F/U This examination should not preclude the clinical evaluation of a suspicious palpable abnormality. This patient's information was entered into a reminder system with a target due date for their next mammogram. Electronically signed by: Beth Hammonds DO 11/19/2024 02:09 PM EDT
--- NOTE | ~2024-11-11 | MM_ITS ---
EXAMINATION: DXA BONE DENSITY AXIAL HISTORY: OSTEOPOROSIS TECHNIQUE: Cloud 66 Dual energy absorptiometry (DEXA) of the lumbar spine, total left hip, and femoral neck was performed. COMPARISON: Comparison is made with the prior examination dated 09/30/2022. FINDINGS: The bone mineral density of the lumbar spine is 1.044 g/cm2, corresponding to a T-score of -1.0, and a Z-score of 0.9. This is indicative of normal bone mineral density. This represents a BMD change of 10.0% compared to the prior exam. This is statistically significant. The bone mineral density of the left total hip is 0.737 g/cm2, corresponding to a T-score of -2.1, and a Z-score of -0.1. This is indicative of osteopenia. This represents a BMD change of 1.1% compared to the prior exam. This is not statistically significant. The bone mineral density of the left femoral neck is 0.680 g/cm2, corresponding to a T-score of -2.6, and a Z-score of -0.4. This is indicative of osteoporosis. This represents a BMD change of 7.9% compared to the prior exam. FRACTURE RISK: The FRAX index suggests a ten year probability of major osteoporotic fracture of 56.1%, and of hip fracture 47.2%. MM/XR DEXA axial skeleton IMPRESSION: Based on bone mineral density, and according to World Health Organization (WHO) criteria, the diagnosis is consistent with osteoporosis. Statistically, 68% of repeat scans fall within 1 SD (+/- 0.010 g/cm2 for AP spine L1-L4) and 1 SD (+/- 0.012 g/cm2 for femur total) FRAX is a trademark of the [employer]'s [employer] Metabolic Bone Disease, a World Health Organization (WHO) Collaborating Center. Electronically signed by: Winston Brar MD 11/11/2024 12:01 PM EDT
--- OUTSIDE RECORDS SUMMARY | 2024-11-11 11:38 | XMS_ITS | Encounter Summary ---
Author Organization [facility] Address [address] [employer] [facility] [address] [place] [address] Phone Care Team Providers Care Compressed Air Pile Driver Operator Name Role Phone Prasad Claire MD Primary Care Provider [phone] Prasad Claire MD Unavailable [phone] Alan Olsen MD Unavailable Winston Restrepo MD Unavailable [phone] Chris Metz MD Unavailable Encounter Details Date Type Department Care Team (Latest Contact Info) Description 10/13/2024 Ancillary Orders [facility] Internal Medicine [address] [place], [place] [id number] Shilpi Thornton PA-C [address] [place], [place] [id number] [email or web address] Bilateral hip pain (Primary Dx); Right sided sciatica Social History Tobacco Use Types Packs/Day Years [...] AM EDT documented as of this encounter Plan of Treatment Upcoming Encounters Date Type Department Care Team (Late st Contact Info) Description 11/15/2024 9:40 AM EDT Office Visit [facility] Spine Medicine [address] [place] [address] Capo Vega MD [address] [facility], [address] [place] [address] 11/28/2024 3:00 PM EDT Office Visit [facility] Internal Medicine [address] [place] [address] Prasad Claire MD [address] [place] 01/17/2025 11:30 AM EST Office Visit [facility] [address] [place] [address] Chidi Levy DO [address] [place] [id number] [email or web address] documented as of this encounter Results * XR HIPS 2+ VW EA BILAT PLUS PELVIS (10/13/2024 12:50 PM EDT) Anatomical Region Laterality Modality Hip, Pelvis Computed Radiogr aphy 10/13/2024 3:24 PM EDT Impressions 10/13/2024 3:26 PM EDT Mild bilateral hip degenerative changes. Partially imaged infrarenal abdominal aortic aneurysm. Narrative 10/13/2024 3:26 PM EDT XR HIPS 2+ VW EA BILAT PLUS PELVIS Referring clinician's provided indication for this examination in Epic: Pain COMPARISON: XR HIP 2 VW LEFT PLUS PELVIS FINDINGS: Pelvis: No displaced fracture. Degenerative changes of the included lumbar spine, sacroiliac joints, and pubic symphysis. Left Hip: No displaced fracture. Normal alignment. Mild degenerative changes. Right Hip: No displaced fracture. Normal alignment. Mild degenerative changes. Vascular calcifications with partially imaged abdominal aortic aneurysm. Procedure Note Ulysses Basilio MD - 10/13/2024 XR HIPS 2+ VW EA BILAT PLUS PELVIS Referring clinician's provided indication for this examination in Epic:Pain COMPARISON: XR HIP 2 VW LEFT PLUS PELVIS FINDINGS: Pelvis: No displaced fracture. Degenerative changes of the included lumbarspine, sacroiliac joints, and pubic symphysis. Left Hip: No displaced fracture. Normal alignment. Mild degenerativechanges. Right Hip: No displaced fracture. Normal alignment. Mild degenerativechanges. Vascular calcifications with partially imaged abdominal aortic aneurysm. IMPRESSION: Mild bilateral hip degenerative changes. Partially imaged infrarenal abdominal aortic aneurysm. Shilpi Thornton KRISTI IMG XR PELVIS Final Result documented in this encounter Visit Diagnoses Diagnosis Bilateral hip pain Pain in joint, pelvic region and thigh Bilateral hip pain- Primary Pain in joint, pelvic region and thigh Right sided sciatica Sciatica documented in this encounter Additional Health Concerns Assessment Noted Time PHQ-2 Depression Total Score: 0 10/20/19 24 10:07 AM EDT documented as of this encounter Care Teams Compressed Air Pile Driver Operator Relationship Specialty Start Date End Date Prasad Claire MD [address] [place] [address] PCP - General 11/27/16 Prasad Claire MD [address] [place] [address] Insurance Assigned Provider 05/16/23 Alan Olsen MD [address] [place] [address] [place] [address] Neurosurgery 11/28/19 Winston Restrepo MD [address] [place] [address] Dr [address]_[place] [address] Neurosurgery 12/01/19 Chris Metz MD [address] [place] [address] Interventional Pain Management 12/01/19 documented as of this encounter Additional Source Comments The information contained in this document represents components of the legal health record. It is not the complete legal health record.[facility]
--- OUTSIDE RECORDS SUMMARY | 2024-11-11 11:38 | XMS_ITS | Encounter Summary ---
Author Organization [facility] Address [address] [facility] [address] [place] [address] Phone Care Team Providers Care Florist Helper Name Role Phone Prasad Radford MD Primary Care Provider [phone] Prasad Radford MD Unavailable [phone] Alan Olsen MD Unavailable Winston Restrepo MD Unavailable [phone] Chris Metz MD Unavailable Reason for Referral * Consultation (Within 2 weeks) - New Request Specialty Diagnoses / Procedures Referred By Lillie siddiqui Referred To Contact Diagnoses Right sided sciatica Bilateral hip pain Acute low back pain with sciatica, sciatica laterality unspecified, unspecified back pain laterality Valentín Quezada PA-C [address] [place] [address] Phone: tel: fax: [email or web address]:[email or web address] Referral ID Status Reason Start Date Expiration Date V isits Requested Visits Authorized [id number] New Request 11/11/2024 11/11/2025 1 1 * Consultation (Within 2 weeks) - New Request Specialty Diagnoses / Procedures Referred By Contac t Referred To Contact Diagnoses Right sided sciatica Bilateral hip pain Acute low back pain with sciatica, sciatica laterality unspecified, unspecified back pain laterality Valentín Quezada PA-C [address] [place] [address] Phone: tel: fax: [email or web address]:[email or web address] Referral ID Status Reason Start Date Expiration Date V isits Requested Visits Authorized [id number] New Request 11/10/2024 11/10/2025 1 1 * Consultation (Within 2 weeks) - New Request Specialty Diagnoses / Procedures Referred By Contact Referred To Contact Physical Medicine and Rehabilitation Diagnoses Right sided sciatica Valentín Quezada PA-C [address] [place] [address] Phone: tel: fax: mailto:[email or web address] Capo Vega MD [address] [place] [address], [address] [place] [address] Phone: tel: fax: mailto:[email or web address] Referral ID Status Reason Start Date Expiration Date V isits Requested Visits Authorized [id number] New Request 11/03/2024 11/03/2025 1 1 Reason for Visit * Reason Onset Date Comments referral 11/03/2024 Encounter Details Date Type Department Care Team (Late st Contact Info) Description 11/03/2024 Telephone [facility] Internal Medicine [address] [place] [address] Prasad Radford MD [address] [place] [address] [email or web address] referral Social History Tobacco Use Types Packs/Day Years [...] AM EDT documented as of this encounter Progress Notes * Valentín Quezada PA-C - 11/11/2024 7:21 AM EDTAddended by: VALENTÍN QUEZADA on: 11/11/2024 07:21 AM Modules accepted: Orders * Dilip Myers - 11/11/2024 7:19 AM EDTAddended by: DILIP MYERS on: 11/11/2024 07:19 AM Modules accepted: Orders * Dilip Myers - 11/11/2024 7:16 AM EDT External referral should be to external pain management not external physiatry. Repended referral. * Kaelyn Mejia - 11/10/2024 3:16 PM EDT Referral, OV Note, Demographics faxed to [facility] [phone]/confirmation received * Valentín Quezada PA-C - 11/10/2024 2:44 PM EDTAddended by: VALENTÍN QUEZADA on: 11/10/2024 02:44 PM Modules accepted: Orders * Evelina Rojas RN - 11/10/2024 2:43 PM EDTAddended by: EVELINA ROJAS on: 11/10/2024 02:43 PM Modules accepted: Orders * Evelina Rojas, ZULAY - 11/10/2024 2:42 PM EDT Spoke to Adrienne and advised. She states understanding, agreeable to plan. Advised they should call her for an appointment once received, but let us know if she doesn't hear back. * Valentín Quezada PA-C - 11/10/2024 1:57 PM EDT She had an MRI on 12/03/2023 which is within 1 year timeframe so she should be all set with that. Cesar more than willing to send a referral to [facility] pain management if she would like. * Evelina Rojas RN - 11/10/2024 1:02 PM EDT Spoke to Adrienne and advised. States she she already went to [facility], and they won't handle sciatica. She is waiting for a call back from Dr Tai office. States she spoke to [facility], and they require an MRI and a referral. Will review with provider. * Valentín Quezada PA-C - 11/10/2024 12:17 PM EDT The other option would be [facility] * Evelina Rojas RN - 11/10/2024 12:01 PM EDT Spoke to Adrienne. States Dr Vega cancelled her appointment. States he can't see her next Thursday, and is going on medical leave until December. States this is the 4th time they have cancelled. States her pain is terrible. The oxycodone is not really helping that much, it's awful. She is unsure what to do. She is wondering if there is another doctor that handles sciatic nerve pain, that we can get her into. States she saw Dr Tai about 1 year ago. Advised to call their office, she should be still considered once of their patients, ask if they will see her for this. In the meantime will ask providers if they have any other suggestions. She is appreciative. * Jessica Drew - 11/10/2024 11:48 AM EDT Received call from patient, requesting a call from [facility]. She reports it is regarding a cancellation of her appointment with Dr. Vega. Request return call to [phone] * Gill Correa RN - 11/08/2024 8:09 AM EDT Spoke to Adrienne and advised. * Prasad Radford MD - 11/07/2024 7:11 PM EDT Oxycodone 10 mg every 8 hours prn script sent. Call and let patient know. * Prasad Radford MD - 11/07/2024 7:11 PM EDTAddended by: PRASAD RADFORD. on: 11/07/2024 07:11 PM Modules accepted: Orders * Sandy Enriquez - 11/07/2024 8:19 AM EDT Made call to patient. She states she was able to get a sooner appointment with Dr. Vega on November 14. However she states she is having issue standing/walking. States I can barely stand 3 seconds . She is looking to see if Dr. Radford can increase her oxycodone. She mentioned when she takes her ox ycodone at night for her arthritis she noticed she is able to walk better and it helps. She also asked if there was maybe something else Dr. Radford could prescribe if oxycodone cannot be increase. Sheis just looking for something for the next 10 days until she can be seen by Dr. Vega. Please advise. * Prasad Radford MD - 11/04/2024 7:28 PM EDT We can refer to [facility] or [facility] * Jessica Drew - 11/04/2024 10:51 AM EDT Received call from patient, reports she received a call notifying her that Dr. Vega visit in November is being rescheduled to December. Request to know if you have other recommendations for a provider * Valentín Quezada PA-C - 11/03/2024 11:39 AM EDT POD. Referral signed. * Diilp Myers - 11/03/2024 10:35 AM EDT Patient called states referral was placed for orthopedics but she says they do not treat sciatica and said she should see Dr. Vega for this. Patient is requesting a referral to Dr. Vega. Referral has been pended for provider. documented in this encounter Plan of Treatment Upcoming Encounters Date Type Department Care Team (Late st Contact Info) Description 11/15/2024 9:40 AM EDT Office Visit [facility] Spine Medicine [address] [place] [address] [place] [address] Capo Vega MD [address] [facility], 2nd [place] [address] 11/28/2024 3:00 PM EDT Office Visit [facility] Internal Medicine [address] [place] [address] Prasad Radford MD [address] [place] [address] 01/17/2025 11:30 AM EST Office Visit [facility] [address] [place] [address] Chidi Levy DO [address] [place] [address] Scheduled Referrals Name Type Priority Associated Diagnoses Orde r Schedule Ambulatory referral to [facility] Outpatient Referral Routine Right sided sciatica Ordered: 11/03/2024 Ambulatory referral to External Physiatry Outpatient Referral Routine Right sided sciatica Bilateral hip pain Acute low back pain with sciatica, sciatica laterality unspecified, unspecified back pain laterality Ordered: 11/10/2024 Ambulatory referral to External Pain Management Outpatient Referral Routine Right sided sciatica Bilateral hip pain Acute low back pain with sciatica, sciatica laterality unspecified, unspecified back pain laterality Ordered: 11/11/2024 documented as of this encounter Visit Diagnoses Diagnosis Right sided sciatica- Primary Sciatica Bilateral hip pain Pain in joint, pelvic region and thigh Acute low back pain with sciatica, sciatica laterality unspecified, unspecified back pain laterality documented in this encounter Additional Health Concerns Assessment Noted Time PHQ-2 Depression Total Score: 0 10/20/19 10:07 AM EDT documented as of this encounter Care Teams Florist Helper Relationship Specialty Start Date End Date Prasad Radford MD [address] [place] [address] PCP - General 11/27/16 Prasad Radford MD [address] [place] [address] Insurance Assigned Provider 05/16/23 Alan Olsen MD [address] [place] [address] [place] [address] Neurosurgery 11/28/19 Winston Restrepo MD [address] [place] [address] [address]_[place]rological [place] [address] Neurosurgery 12/01/19 Chris Metz MD [address] [place] [address] Interventional Pain Management 12/01/19 documented as of this encounter Additional Source Comments The information contained in this document represents components of the legal health record. It is not the complete legal health record.[facility]
--- OUTSIDE RECORDS SUMMARY | 2024-11-11 11:38 | XMS_ITS | Encounter Summary ---
Author Organization [facility] Address [address] [employer] [facility] [address] [place] [address] Phone Care Team Providers Care Network Desktop Support Specialist Name Role Phone Prasad Claire MD Primary Care Provider [phone] Prasad Claire MD Unavailable [phone] MnAlan MD Unavailable Winston Restrepo MD Unavailable [phone] Chris Metz MD Unavailable Encounter Details Date Type Department Care Team (Late Contact Info) Description 01/20/2017 Procedure Pass [facility] Endoscopy Admitting Dept Virtual Department [address] [place] [address] Social History Tobacco Use Types Packs/Day Years Used Date Smoking Tobacco: Former Cigarettes 0.5 26 1 02/10/1981 - 12/12/2007 Smokeless Tobacco: Never Alcohol Use Standard Drinks/Week Comments Yes 7 (1 standard drink = 0.6 oz pur e alcohol) Comments Unknown Sex and Gender Information Value Date Recorded Sex Assigned at Female 08/03/2018 8:36 AM EDT Legal Sex Female 10:08 PM EDT Gender Identity Female 08/03/2018 8:36 AM EDT Sexual Orientation Choose not to disclose 2018 8:36 AM EDT documented as of this encounter Plan of Treatment Upcoming Encounters Date Type Department Care Team ([facility] Contact Info) Description 11/15/2024 9:40 AM EDT Office Visit [facility] Spine Medicine [address] [place] [address] Capo Vega MD 22 [facility], 2nd [place] [address] 11/28/2024 3:00 PM EDT Office Visit [facility] Internal Medicine [address] [place] [address] Prasad Claire MD 40 [place] [address] 01/17/2025 11:30 AM EST Office Visit [facility] [address] [place] [address] Chidi Levy DO 22 [place] [address] documented as of this encounter Visit Diagnoses Not on filedocumented in this encounter Additional Health Concerns Assessment Noted Time PHQ-2 Depression Total Score: 0 12/12/19 17 1:25 PM EDT documented as of this encounter Care Teams Network Desktop Support Specialist Relationship Specialty Start Date End Date Prasad Claire MD [address] [place] [address] PCP - General 11/27/16 Prasad Claire MD [address] [place] [phone] Insurance Assigned Provider 05/16/23 Alan Olsen MD [address] [place] [address] [place] [address] Neurosurgery 11/28/19 Winston Restrepo MD [address] [place] [address] Dr [address]_[place] [address] Neurosurgery 12/01/19 Chris Metz MD [address] [place] [address] Interventional Pain Management 12/01/19 documented as of this encounter Additional Source Comments The information contained in this document represents components of the legal health record. It is not the complete legal health record.[facility]
--- OUTSIDE RECORDS SUMMARY | 2024-11-11 11:38 | XMS_ITS | Encounter Summary ---
Author Organization [facility] Address [address] [facility] [address] [place] [address] Phone Care Team Providers Care V Belt Finisher Name Role Phone Prasad Claire MD Primary Care Provider [phone] Prasad Claire MD Unavailable [phone] Alan Olsen MD Unavailable Winston Restrepo MD Unavailable [phone] Chris Metz MD Unavailable Reason for Visit * Reason Onset Date Comments Results 11/10/2024 Encounter Details Date Type Department Care Team (Late st Contact Info) Description 11/10/2024 Telephone [facility] Internal Medicine [address] [place], [place] [phone] Evelina Rojas, ZULAY [address] [place], [place] [phone] [email or web address] Results Social History Tobacco Use Types Packs/Day Years [...] as of this encounter Progress Notes * Shilpi Thornton PA-C - 11/10/2024 2:45 PM EDT Noted, thanks. * Evelina Rojas RN - 11/10/2024 2:44 PM EDT Spoke to Adrienne and advised. She states understanding. States she would like to figure out how to manage her back pain first, and then will worry about this. Declines referral at this time. Appreciative of call. * Evelina Rojas RN - 11/10/2024 2:38 PM EDT Called pt x 3, disconnected mid call. Will try again later. * Shilpi Thornton PA-C - 11/10/2024 2:29 PM EDT Although unchanged from most recent imaging, there has been about a 1 cm change between now and 2019. I generally would recommend establishing with vascular just to at least have an evaluation for preventative measures so it does not worsen but ultimately it is up to the patient and her PCP. * Evelina Rojas RN - 11/10/2024 1:04 PM EDT Spoke to Adrienne. States she does not see vascular, but she was told by radiology that it was not much of a change from her last imaging. States she is not interested in seeing vascular unless Kelvin thinks it's critical to do so. * Evelina Rojas RN - 11/10/2024 1:02 PM EDT Images from the original note were not included. Shilpi Thornton PA-C P [facility] Rickey Giron Rn Aortic ultrasound conference and abdominal aortic aneurysm measuring up to 3.4 cm. If not already established, would recommend establishing with vascular. documented in this encounter Plan of Treatment Upcoming Encounters Date Type Department Care Team (Late st Contact Info) Description 11/15/2024 9:40 AM EDT Office Visit [facility] Spine Medicine [address] [place] [address] [place] [address] Capo Vega MD [address] [facility], 2nd [place] [address] 11/28/2024 3:00 PM EDT Office Visit [facility] Internal Medicine [address] [place], [place] [phone] Prasad Claire MD [address] [place], [place] [phone] 01/17/2025 11:30 AM EST Office Visit [facility] [address] [place] [address] [place] [address] Chidi Levy DO 22 [place], [place] [phone] [email or web address] documented as of this encounter Visit Diagnoses Not on filedocumented in this encounter Additional Health Concerns Assessment Noted Time PHQ-2 Depression Total Score: 0 10/20/19 10:07 AM EDT documented as of this encounter Care Teams V Belt Finisher Relationship Specialty Start Date End Date Prasad Claire MD [address] [place] [phone] [email or web address] PCP - General 11/27/16 Prasad Claire MD [address] [place] [address] [email or web address] Insurance Assigned Provider 05/16/23 Alan Olsen MD [address] [place] [address] [place] [address] Neurosurgery 11/28/19 Winston Restrepo MD [address] [place] [address] Dr NGUYEN_Ne[place]rological [place] [address] Neurosurgery 12/01/19 Chris Metz MD [address] [place] [address] Interventional Pain Management 12/01/19 documented as of this encounter Additional Source Comments The information contained in this document represents components of the legal health record. It is not the complete legal health record.[facility]
--- OUTSIDE RECORDS SUMMARY | 2024-11-11 11:39 | XMS_ITS | Encounter Summary ---
Author Organization [facility] Address [address] [employer] [facility] [address] [place] [address] Phone Care Team Providers Care Press Tender Long Goods Name Role Phone Prasad Claire MD Primary Care Provider [phone] Prasad Claire MD Unavailable [phone] MtAlan MD Unavailable Winston Restrepo MD Unavailable [phone] Chris Metz MD Unavailable Encounter Details Date Type Department Care Team (Late st Contact Info) Description 11/10/2019 Procedure Pass [facility], [address] [address] Social History Tobacco Use Types Packs/Day Years Used Date Smoking Tobacco: Former Cigarettes 0.5 26 1 02/10/1981 - 12/12/2007 Smokeless Tobacco: Never Alcohol Use Standard Drinks/Week Comments Yes 7 (1 standard drink = 0.6 oz pur e alcohol) Comments No Sex and Gender Information Value Date Recorded Sex Assigned at Female 08/03/2018 8:36 AM EDT Legal Sex Female 10:08 PM EDT Gender Identity Female 08/03/2018 8:36 AM EDT Sexual Orientation Choose not to disclose 2018 8:36 AM EDT documented as of this encounter Last Filed Vital Signs Vital Sign Reading Time Taken Comments Blood Pressure - - Pulse - - Temperature - - Respiratory Rate - - Oxygen Saturation - - Inhaled Oxygen Concentration - - Weight 68 kg (150 lb) 11/10/2019 6:45 PM EDT Height 160 cm (5' 3 ) 11/10/2019 6:45 PM EDT Body Mass Index 26.57 11/10/2019 6:45 PM EDT documented in this encounter Plan of Treatment Upcoming Encounters Date Type Department Care Team (Late st Contact Info) Description 11/15/2024 9:40 AM EDT Office Visit [facility] Spine Medicine [address] [place] [address] Capo Vega MD 22 [facility], 2nd [place] [address] 11/28/2024 3:00 PM EDT Office Visit [facility] Internal Medicine [address] [place] [address] Prasad Claire MD [address] [place] [address] 01/17/2025 11:30 AM EST Office Visit [facility] [address] [place] [address] Chidi Levy DO 22 [place] [address] documented as of this encounter Visit Diagnoses Not on filedocumented in this encounter Additional Health Concerns Assessment Noted Time PHQ-2 Depression Total Score: 0 03/08/19 11:14 AM EST documented as of this encounter Care Teams Press Tender Long Goods Relationship Specialty Start Date End Date Prasad Clarie MD [address] [place] [address] PCP - General 11/27/16 Prasad Claire MD [address] [place] [address] [email or web address] Insurance Assigned Provider 05/16/23 Alan Olsen MD [address] [place] [address] [place] [address] Neurosurgery 11/28/19 Winston Restrepo MD [address] [place] [address] Dr NGUYEN_Ne[place]rological [place] [address] Neurosurgery 12/01/19 Chris Metz MD [address] [place] [id number] Interventional Pain Management 12/01/19 documented as of this encounter Additional Source Comments The information contained in this document represents components of the legal health record. It is not the complete legal health record.[facility]
--- OUTSIDE RECORDS SUMMARY | 2024-11-11 11:39 | XMS_ITS | Encounter Summary ---
Author Organization [facility] Address [address] [employer] [facility] [address] [place] [address] Phone Care Team Providers Care Financial Assistant Name Role Phone Prasad Claire MD Primary Care Provider [phone] Prasad Claire MD Unavailable [phone] LaAlan MD Unavailable Winston Restrepo MD Unavailable [phone] Chris Metz MD Unavailable Encounter Details Date Type Department Care Team (Late st Contact Info) Description 09/18/2022 Procedure Pass [facility] Endoscopy Admitting Dept Virtual Department [address] [place] [address] Social History Tobacco Use Types Packs/Day Years Used Date Smoking Tobacco: Every Day Cigarettes 0.5 26 Smokeless Tobacco: Never Alcohol Use Standard Drinks/Week Comments Not Currently 0 (1 standard drink = 0.6 oz pure alcohol) rare only during weekends around [place] the [place] Education Answer Date Recorded Are you interested in more education? Not on claribel e 06/06/2022 Are you concerned about learning? Not on file 06/06/2022 No 06/06/2022 No 06/06/2022 Digital Access Answer Date Recorded No 07/02/2022 No 07/02/2022 Reliable internet access at home? Not on file 07/02/2022 Device with a working camera? Not on file Comments No Sex and Gender Information Value [...] Description 11/15/2024 9:40 AM EDT Office Visit [facility] Spine Medicine [address] [place] [address] Capo Vega MD [address] [facility] 2nd [place] [address] 11/28/2024 3:00 PM EDT Office Visit [facility] Internal Medicine [address] [place] [address] Prasad Claire MD 40 [place] [address] 01/17/2025 11:30 AM EST Office Visit [facility] [address] [place] [address] Chidi Levy DO [address] [place] [address] documented as of this encounter Visit Diagnoses Not on filedocumented in this encounter Additional Health Concerns Assessment Noted Time PHQ-2 Depression Total Score: 0 07/22/19 23 7:29 PM EDT documented as of this encounter Care Teams Financial Assistant Relationship Specialty Start Date End Date Prasad Claire MD [address] [place] [address] PCP - General 11/27/16 Prasad Claire MD [address] [place] [address] [email or web address] Insurance Assigned Provider 05/16/23 Alan Olsen MD [address] [place] [address] [place] [address] Neurosurgery 11/28/19 Winston Restrepo MD [address] [place] [address] Dr NGUYEN_[place]rological [place] [address] Neurosurgery 12/01/19 Chris Metz MD [address] [place] [address] Interventional Pain Management 12/01/19 documented as of this encounter Additional Source Comments The information contained in this document represents components of the legal health record. It is not the complete legal health record.[facility]
--- OUTSIDE RECORDS SUMMARY | 2024-11-11 11:39 | XMS_ITS | Patient Health Record ---
Author Organization [facility] Address [address] [facility] [place] [address] Care Team Providers Care Parking Garage Manager Name Role Phone Prasad Claire MD Primary Care Provider Cheko Schmidt Unavailable [phone] Allergies Allergen (clinical drug ingredient) Drug/Non Drug Allergy documented on EMR Reaction Allergy Type Onset Date Status rosuvastatin Crestor leg pain Drug Allergy Acti ve atorvastatin Lipitor headache Drug Allergy Acti ve ezetimibe / simvastatin Vytorin aching legs Drug Allergy Active Reason For Referral No Information Medications Medication SIG (Take, Route, Frequency, Duration) Notes Start Date End Date Status Calcium + D Active Acetaminophen-Codeine Active Glucosamine Chond Complex/MSM Active Fish Oil Active Gabapentin Active Omeprazole Active CeleBREX Active Pravastatin Sodium A ctive Culturelle Active Problems Problem Type SNOMED Code ICD Code Onset Dates Problem Status W/U Status Risk Notes Problem Abscess /Cellulitis (682.7) Active confirmed Problem Pain in limb (11684506) Pain in Limb (729.5) Active confirmed Problem Paronychia (55074200) Paronychia (681.11) Active confirmed Plan Of Treatment Pending Test Test Name Order Date [id number] NAIL, 1-5 03/07/2013 86348- Debride <25 sq cm 11/24/2012 72685 I&D ABSCESS- SIMPLE,SINGLE 013 Insurance Providers Payer Name Payer Address Payer Phone Subscriber Number Group Number Insured Name Patient Relationship to Insured Coverage Start Date Coverage End Date [facility] 65 Medicare Preferred [address] [place] [address] [phone] [id number] Adrienne Huerta Self - patient is the insured Medical (General) History Medical History History ICD Code osteoarthritis peptic ulcer disease back, hip, knee pain osteoporosis hematuria chicken pox Surgical History Surgery Date(Month/Year) knee surgery, left back surgery-lower 02/1983 gall bladder 04/1968
--- OUTSIDE RECORDS SUMMARY | 2024-11-11 11:39 | XMS_ITS | Clinical Summary ---
Author Organization [facility] Address [address] [place] [address] Phone Care Team Providers Care Attic Blower Name Role Phone Prasad Claire MD Primary Care Provider [phone] Prasad Claire MD Unavailable [phone] Alan Olsen MD Unavailable Winston Restrepo MD Unavailable [phone] Chris Metz MD Unavailable Allergies No known active allergies Medications glucosamine HCl 750 mg Tab Take 1 tablet by mouth daily. Active Ca cit-D3-mag#11-zinc-cup r-man-bor (CALTRATE 600+D) 600 mg calcium- 800 unit-50 mg Tab Take 1 tablet by mouth as directed. Once daily 5 days a week Active Medication-Free Text Tumeric Take 1 capsule by mouth once daily. Active coenzyme Q10 10 mg capsule Take 100 mg by mouth daily. 020 Active aspirin-acetaminophen- caffeine (EXCEDRIN MIGRAINE) 250-250-65 mg per tablet Take 1 tablet by mouth every 6 (six) hours as needed for pain (specific location in comments). Active cyclobenzaprine (FLEXERIL) 5 MG tabletIndications:Acut e bilateral low back pain with left-sided sciatica 1-2 tablets q 12 hours prn back spasms 30 tablet 024 Active gabapentin (NEURONTIN) 300 MG capsuleIndications:Tiffani nikki osteoarthritis involving multiple joints 600mg po tid 540 capsule 3 024 Active omeprazole (PRILOSEC) 20 MG capsule TAKE 1 CAPSULE TWICE DAILY 180 capsule 3 024 Active celecoxib (CELEBREX) 200 MG capsuleIndications:Chr onic bilateral low back pain without sciatica,Primary osteoarthritis, unspecified site Take 1 capsule (200 mg total) by mouth 2 (two) times a day with meals. 180 capsule 3 025 Active hydrOXYzine HCL (ATARAX) 10 MG tabletIndications:Anxi ety Take 1 tablet (10 mg total) by mouth 3 (three) times a day as needed for anxiety. 10 tablet 025 Active losartan (COZAAR) 25 MG tabletIndications:Esse ntial hypertension TAKE 1 TABLET DAILY 90 tablet 3 025 Active tiZANidine (ZANAFLEX) 2 MG tabletIndications:Shuttle Inspector dez bilateral low back pain without sciatica TAKE 1 TABLET(2 MG) BY MOUTH EVERY 8 HOURS NEEDED FOR MUSCLE SPASMS 30 tablet 025 Active pravastatin (PRAVACHOL) 80 MG tabletIndications:Pure hypercholesterolemia TAKE 1 TABLET DAILY 90 tablet 3 025 Active oxyCODONE 5 MG immediate release tabletIndications:Bila teral hip pain,Acute low back pain with sciatica, sciatica laterality unspecified, unspecified back pain laterality Take 2 tablets (10 mg total) by mouth every 8 (eight) hours as needed for pain (specific location in comments) (Back and leg pain). Partial fill ok 42 tablet 025 Active pravastatin (PRAVACHOL) 80 MG tabletIndications:Pure hypercholesterolemia take 1 tablet daily 90 tablet 3 024 2024 Discontinued oxyCODONE 5 MG immediate release tabletIndications:Shuttle Inspector dez bilateral low back pain without sciatica Take 2 tablets (10 mg total) by mouth every evening. 56 tablet 025 2024 Discontinued(R eorder) predniSONE (DELTASONE) 10 MG tabletIndications:Bila teral hip pain,Right sided sciatica Take 4 tablets (40 mg total) by mouth daily for 5 days. 20 tablet 025 2024 oxyCODONE 5 MG immediate release tabletIndications:Shuttle Inspector dez bilateral low back pain without sciatica Take 2 tablets (10 mg total) by mouth every evening. 56 tablet 025 2024 Discontinued Active Problems Problem Noted Date Diagnosed Date Bilateral hip pain 10/13/2024 Assessment & Plan (10/13/2024 11:38 AM EDT): She reports pain in bilateral hips, occasionally worse on the right but also noticeable on the left. She gets pain that goes from her right buttocks and wraps around her right hip towards her groin and then goes down her right leg. She also has pain that goes along the lateral aspect of her left leg that feels like a tight rubber band . On examination she had tenderness to palpation along the right trochanteric bursa as well as pain in her buttocks with right hip flexion. She does have a chronic medical history of arthritis as well as chronic lower back pain. She did also have a x-ray of her left hip in February due to pain which showed faint amorphous calcifications in the soft tissues of the proximal thigh, indeterminate etiology as well as faint calcifications adjacent to the left hip joint, particularly long the superior lateral aspect of the femoral head. Mild joint space narrowing in the left hip with superior lateral hypertrophic change with recommendations for CT scan or MRI for further evaluation. Given all of these findings, I do have suspicion regarding trochanteric bursitis versus sciatica as well as chronic arthritis which could be contributing to her symptoms. Will obtain bilateral hip x-rays to further assess for an underlying etiology, especially given the previous left hip x-ray. Will also trial a course of prednisone 40 mg x 5 days, discussed side effects. She should continue her chronic pain regimen including tizanidine/Flexeril as needed for muscle spasm, oxycodone 10 mg every evening, gabapentin 600 mg 3 times daily, and Celebrex 200 mg twice daily. If no improvement with the prednisone or if symptoms return, would recommend referring to orthopedics/[facility] for further assessment. Hypertension 06/04/2021 GERD (gastroesophageal reflux disease) 8 Chronic bilateral low back pain without sciatica 08/04/2017 Osteoarthritis 08/04/2017 Osteoporosis 08/04/2017 Assessment & Plan (09/23/2024 9:35 AM EDT): She continues on calcium vitamin D supplement her vitamin D is a little bit high. She states that she just recently decreased her vitamin D intake. She should continue her calcium intake. She should do weightbearing exercises as tolerated. She is due for repeat DXA scan at [facility] on 09/30/2024. I discussed this with her today and I asked the front staff to send the DXA scan request again to [facility] and to give the patient a copy just in case she does not hear from them she can contact them and bring the request herself. Also requested second zoledronic acid infusion at [facility] which should take place close to 10/26/2024. She did not do the CTX level previously so I told her she could get it done if she wants. It should be done fasting. I will give her a follow-up in 3 months time to review her DXA scan. Assessment & Plan (09/24/2023 9:27 AM EDT): The patient continues to take calcium and vitamin D. She could not tolerate alendronate due to heartburn. We discussed using zoledronic acid infusion. She may need to repeat calcium and vitamin D levels prior to the infusion and I requested the studies. I informed her that the infusion center should contact call. But if she like she can contact the infusion center herself and schedule the study. She is due for repeat DXA scan on 09/30/2024 this was requested today. This study has to be done at [facility]. Prior to the follow-up visit she needs to do lab work. She must do this 2 weeks prior to the visit and it must be done in the morning fasting. Assessment & Plan (10/21/2022 9:19 AM EDT): The patient has had significant decrease in bone mineral density since 2020. She should continue calcium and vitamin D supplements. I suggested to her that she needs antiresorptive medications but Prolia is not going to be effective for her hip. I suggested alendronate 70 mg weekly. This medication must be taken fasting with water and she must remain upright for 30 minutes either sitting or standing and she must not eat for 30 minutes after taking the medication. She will follow in 11 months time. Assessment & Plan (02/14/2021 12:27 PM EST): This is a patient with history of osteoporosis since the year 1999. She has had traumatic fractures but not fragility fractures. Her risk factors for osteoporosis include age, menopause, family history of osteoporosis, use of tobacco, and proton pump inhibitors as well as anticonvulsants. Possibly vitamin D deficiency. She does not appear to get enough calcium intake in her diet 82 mg/day and gets additional 600 mg of calcium with supplements. So she may not be getting enough calcium. She did use Actonel for a period of 6 years. Has continue with calcium and vitamin D supplements but no antiresorptive medications. Is difficult to assess a bone mineral density has decreased over time since I just want DXA scan. At this point I we will check 24-hour urine calcium, N-telopeptide, PTH levels and vitamin D levels for secondary causes of osteoporosis. Primary osteoarthritis 08/04/2017 Pure hypercholesterolemia 08/04/2017 Encounters Date Type Department Care Team Description 11/10/2024 10:08 AM EDT - 11/10/2024 11:59 PM EDT Hospital Encounter [address] [address] Shilpi Thornton PA-C Arrived Discharge Disposition: Home or Self Care 11/10/2024 Telephone [facility] [address] [place] [address] Evelina Rojas RN Results 11/03/2024 Telephone [facility] [address] [place] [address] Prasad Claire MD referral 10/31/2024 2:00 PM EDT Infusion [facility] Infusion [address] [address] Chidi Levy DO Age-related osteoporosis without current pathological fracture (Primary Dx) 10/30/2024 Refill [facility] [address] [place] [address] Prasad Claire MD Medication Refill 10/26/2024 Refill [facility] [address] [place] [address] Prasad Claire MD Medication Refill 10/13/2024 12:27 PM EDT - 10/13/2024 11:59 PM EDT Hospital Encounter [facility] [address] [place] [address] Shilpi Thornton PA-C Discharge Disposition: Home or Self Care 10/13/2024 11:20 AM EDT Office Visit [facility] [address] [place] [address] Shilpi Thornton PA-C Bilateral hip pain (Primary Dx); Right sided sciatica 10/13/2024 Ancillary Orders [facility] [address] [place] [address] Shilpi Thornton PA-C Bilateral hip pain (Primary Dx); Right sided sciatica 10/11/2024 Telephone [facility] [address] [place] [address] Prasad Claire MD Leg Pain 10/04/2024 Refill [facility] [address] [place] [address] Prasad Claire MD Medication Refill 09/25/2024 Refill [facility] [address] [place] [address] Prasad Claire MD Medication Refill 09/23/2024 9:10 AM EDT Office Visit [facility] [address] [place] [address] Chidi Levy DO Age-related osteoporosis without current pathological fracture (Primary Dx) 09/22/2024 Refill [facility] [address] [place] [address] Prasad Claire MD Medication Refill 08/22/2024 Refill [facility] [address] [place] [address] Prasad Claire MD Medication Refill from Last 3 Months Immunizations Immunization Administration Dates Next Due COVID-19 (Pre-12/01) Pfizer Vaccine, mRNA, PF 05/31/2020,05/10/2020 INFLUENZA, SPLIT VIRUS, TRIV ALENT W/ PRESERVATIVE IM 11/20/2016,10/14/2011 Influenza High-Dose Quadriva lent Preservative Free IM 11/03/2022,12/17/2021,10/20/2019 Influenza High-Dose Trivalen t Preservative Free IM 10/26/2023,10/28/2018,12/10/2015,12/07,12/02/2013,10/21/2012 Influenza Quadrivalent Prese rvative Free IM 12/05/2020 Influenza Trivalent Adjuvant ed Preservative free IM 11/12/2017 Influenza, Unspecified Formulation 10/28,11/12/2017,10/18/2010,11/12 Pneumococcal conjugate PCV13 10/20/2019,12/05/19 15 Pneumococcal polysaccharide PPSV23 10/18/2010 RSV Vaccine (monovalent, adjuvanted) 11/12/2023 Tdap 11/03/2022,10/14/2011 Zoster live 04/24/2011 Zoster recombinant 01/03/2019,10/28/2018 Family History Medical History Relation Comments Lung cancer Brother 1 Cancer Father Hypertension Mother Hypertension Sister 1 Hypertension Sister 2 Lymphoma Sister 2 Hypertension Sister 3 Kidney cancer Sister 3 Relation Status Comments Brother 1 Alive Brother 2 Alive Father (Age 81) Mother (Age 91) Sister 1 Alive Sister 2 Alive lymphoma Sister 3 (Age 66) at 66 y/o d/t kidney cancer Social History Tobacco Use Types Packs/Day Years Used Date Smoking Tobacco: Some Days Cigarettes 0.5 26 Smokeless Tobacco: Never Tobacco Cessation:Ready to Q uit: Not Asked; Counseling Given: Not Answered Comments:2-3 cigarette a week if that-noted 10/26/23 10 cigarettes a week-noted [...] not to disclose 2018 8:36 AM EDT Last Filed Vital Signs Vital Sign Reading Time Taken Comments Blood Pressure 148/72 10/31/2024 2:45 PM EDT Pulse 73 10/31/2024 2:45 PM EDT Temperature 36.2 C (97.2 F) 10/31/2024 2:45 PM EDT Respiratory Rate 18 10/31/2024 2:45 PM EDT Oxygen Saturation 96% 10/31/2024 2:45 PM EDT Inhaled Oxygen Concentration - - Weight 60.4 kg (133 lb 3.2 oz) 10/13/2024 11:08 AM EDT Height 157.5 cm (5' 2.01 ) 10/13/2024 11:08 AM E DT Body Mass Index 24.36 10/13/2024 11:08 AM EDT Plan of Treatment Upcoming Encounters Date Type Department Care Team (Late st Contact Info) Description 11/15/2024 9:40 AM EDT Office Visit [facility] [address] [place] [address] [place] [address] Capo Vega MD [address] [facility], 2nd [place] [address] 11/28/2024 3:00 PM EDT Office Visit [facility] [address] [place] [address] Prasad Claire MD [address] [place] [address] [email or web address] 01/17/2025 11:30 AM EST Office Visit [facility] [address] [place] [address] Chidi Levy DO [address] [place] [address] [email or web address] Health Maintenance Due Date Last Done Comments COLOGUARD 1990 FIT TEST 1990 FOBT 1990 SIGMOIDOSCOPY 1990 VIRTUAL COLONOSCOPY 1990 INFLUENZA VACCINE (#1) 2024 , 11/03/2022, 11/03/2022, Additional history exists COVID-19 VACCINE ( season) 2024 12/24/2022, 02/14/2021, 05/31/2020, Additional history exists DEPRESSION SCREENING 10/19/2024 10/20/2023 CREATININE LEVEL 04/22/2025 04/22/2024, 05/2023, 04/06/2023, Additional history exists POTASSIUM LEVEL 04/22/2025 04/22/2024, 09/0 05/2023, 04/06/2023, Additional history exists BLOOD PRESSURE 04/30/2025 10/31/2024 FOLLOW UP BONE DENSITY TESTING 09/23/2025 09/24/2023, 09/30/2022, 08/23/2020, Additional history exists SMOKING Hx and SMOKELESS TOBACCO SCREENING 10/13/2025 10/13/2024 COLONOSCOPY 09/19/2027 09/18/2022, 01/20/2017 COLORECTAL CANCER SCREENING 09/19/2027 LIPID PANEL 04/22/2029 04/22/2024, 03/13, 03/26/2022, Additional history exists Adult Td,Tdap Booster 11/03/2032 11/03/2022, 012 ZOSTER VACCINES Completed 01/03/2019, 10/10, 04/24/2011 HEPATITIS C SCREENING Completed 09/23/2019, 020 PNEUMOCOCCAL VACCINES (50+ years) Completed 10/20/2019, 12/04/2014, 10/18/2010 OSTEOPOROSIS SCREENING INITIAL (ONE-TIME) Completed 09/24/2023, 09/30/2022, 08/23/2020, Additional history exists RSV VACCINE Completed 11/12/2023 HEPATITIS A VACCINES Aged Out No long er eligible based on patient's age to complete this topic HIB VACCINES Aged Out No longer eligi ble based on patient's age to complete this topic MENINGOCOCCAL VACCINES (ACWY) Aged Out No longer eligible based on patient's age to complete this topic MENINGOCOCCAL VACCINES (B) Aged Out N o longer eligible based on patient's age to complete this topic Medical Devices Not on file Procedures Procedure Name Priority Date/Time Associated Diagnosis Comments US AORTA DUPLEX COMPLETE Routine 11/10/2024 10:46 AM EDT Infrarenal abdominal aortic aneurysm (AAA) without rupture XR HIPS 2+ VW EA BILAT PLUS PELVIS Routine 10/13/2024 12:50 PM EDT Bilateral hip pain LIPID PANEL Routine 04/22/2024 9:16 AM EDT Pure hypercholesterolemia COMPREHENSIVE METABOLIC PANEL Routine 04/22/2024 9:16 AM EDT Primary osteoarthritis, unspecified site Primary hypertension BD DXA MONITORING Routine 09/24/2023 9:2 7 AM EDT Age-related osteoporosis without current pathological fracture ENDOSCOPY, COLON 09/18/2022 8:27 AM EDT HEPATITIS C ANTIBODY, QUALITATIVE Routine 09/23/2019 1:50 PM EDT Need for hepatitis C screening test from Last 3 Months or Most Recently Relevant to Health Maintenance Results * US Aorta Duplex Complete (11/10/2024 [...] Thornton PA-C IMG US ABDOMEN Final Result * XR HIPS 2+ VW EA BILAT [...] imaged infrarenal abdominal aortic aneurysm. Shilpi Thornton PA-C IMG XR PELVIS Final Result * Comprehensive metabolic panel (04/22/2024 9:16 AM EDT) SODIUM 141 133 - 146 mmol/L [facility] POTASSIUM 4.4 3.3 - 5.1 mmol/L [facility] CHLORIDE 105 96 - 108 mmol/L [facility] CO2 30 21 - 35 mmol/L [facility] BUN 12 6 - 19 mg/dL [facility] CREATININE 0.80 0.5 - 1.5 mg/dL [facility] GLUCOSE 99 70 - 99 mg/dL [facility] ALBUMIN 4.3 3.9 - 4.8 g/dL [facility] TOTAL PROTEIN 7.0 6.5 - 8.0 g/dL [facility] CALCIUM 9.6 8.4 - 10.3 mg/dL [facility] ALKALINE PHOSPHATASE 49 39 - 117 U/L [facility] TOTAL BILIRUBIN 0.3 0.0 - 1.2 mg/dL [facility] AST 31 0 - 37 U/L [facility] ALT 26 0 - 40 U/L [facility] GLOBULIN 2.7 1 - 4.8 g/dL [facility] EGFR 75 >59 mL/min/1.7 3m2 [facility] Comment:Estimated glomerular filtration rate calculated using the CKD-EPI refit equation. ANION GAP 10 10 - 20 mmol/L [facility] Blood 04/22/2024 9:16 AM EDT 04/22/2024 11:58 AM EDT Prasad Claire MD LAB BLOOD ORDERABLES Final Re sult Performing Organization Address [facility] Co de Phone Number [address] [address] * (ABNORMAL) Lipid panel (04/22/2024 9:16 AM EDT) HDL 63 mg/dL [facility] Comment: Interpretation <40 mg/dL: Low HDL cholesterol (major risk factor for CHD) Greater than or equal to 60 mg/dL: High HDL cholesterol ( negative risk factor for CHD) HDL - cholesterol is affected by a number of factors, e.g. smoking, excerise, hormones, sex and age. CHOLESTEROL 172 0 - 240 mg/dL [facility] TRIGLYCERIDES 103 30 - 160 mg/dL [facility] LDL 88 50 - 129 mg/dL [facility] Comment: LDL levels in terms of risk for coronary heart disease: <100 mg/dL: Optimal 100-129 mg/dL: Near or above optimal 130-159 mg/dL: Borderline high 160-189 mg/dL: High >190 mg/dL: Very High CARDIAC RISK RATIO 2.7(L) 3.3 - 4.4 C [facility] Blood 04/22/2024 9:16 AM EDT 04/22/2024 12:41 PM EDT Prasad Claire MD LAB BLOOD ORDERABLES Final Re sult Performing Organization Address [facility]/ZIP Co de Phone Number [address] [address] * DXA Monitoring (09/30/2022 10:43 AM EDT) Anatomical Region Laterality Modality Bone Density Bone Density us Prasad Claire MD IMG BD BONE DENSITY DEXA Edit ed Result - Final * ENDOSCOPY, COLON (09/18/2022 8:27 AM EDT) Narrative Transcriptions Chan Brown MD - 09/18/2022 8:27 AM EDT [facility] Patient Name: Adrienne Huerta Attending MD:: CHAN BROWN MD, Procedure Date: 09/18/2022 8:27 AM Date of : 1945 Age: 76 Admit Type: Outpatient Gender: Female Room: [place] [address] Referring MD: PRASAD CLAIRE MD Exam Type: Colonoscopy Indications: Screening for colorectal malignant neoplasm Medications: Monitored Anesthesia Care Procedure: Informed consent was obtained from the patientafter discussion of the indications, limitations, alternatives, benefits, and risks of the procedure. Risks specifically discussed include but are not limited to medication reactions, missed lesions, bleeding, perforation, or the need for emergent surgery. Throughout the procedure, the patient's blood pressure, pulse, end-tidal CO2, and oxygensaturations were monitored continuously. The Olympus adult variable colonoscope [id number] #6 was introduced through the anus and advanced to the cecum, identified by the appendiceal orifice. The colonoscopy was performed without difficulty. The patient tolerated the procedure well. The qualityof the bowel preparation was good. Anatomicallandmarks were photographed. Complications: No immediate complications. Estimated blood loss:None. Findings: The perianal and digital rectal examinations were normal. Multiple small-mouthed diverticula were found inthe sigmoid colon and descending colon. The rectum, recto-sigmoid colon, sigmoid colon, descending colon, splenic flexure, transversecolon, hepatic flexure, ascending colon, cecum,appendiceal orifice, ileocecal valve and rectum (onretroflexion) appeared normal. Impression: - Diverticulosis in the sigmoid colon and in the descending colon. - The rectum (on retroflexion), rectum, sigmoidcolon, descending colon, splenic flexure, transversecolon, hepatic flexure, ascending colon, cecum,recto-sigmoid colon, ileocecal valve and appendiceal orifice are normal. - No specimens collected. Recommendation: - Discharge patient to home. - High fiber diet. - Continue present medications. - You should not require any further colonoscopy unless a symptom were to develop. Guidelinessuggest that screening exams may not be necessary after age75 - You have diverticulosis so please eat a highfiber diet. CHAN BROWN MD 09/18/2022 8:43:00 AM This report has been signed electronically. Number of Addenda: 0 Note Initiated On: 09/18/2022 8:27 AM Procedure Code(s): --- Professional --- 73541, Colonoscopy, flexible; diagnostic, including collection of specimen(s) by brushing or washing, when performed (separateprocedure) --- Technical --- 13778, Colonoscopy, flexible; diagnostic, including collection of specimen(s) by brushing or washing, when performed (separateprocedure) Diagnosis Code(s): --- Professional --- Z12.11, Encounter for screening for malignantneoplasm of colon K57.30, Diverticulosis of large intestine without perforation or abscess without bleeding --- Technical --- Z12.11, Encounter for screening for malignantneoplasm of colon K57.30, Diverticulosis of large intestine without perforation or abscess without bleeding CPT copyright 2021 [employer]. All rights reserved. The codes documented in this report are preliminary and upon physician coder reviewmay be revised to meet current compliance requirements. Procedure Date: 09/18/2022 8:27:06 AM [address] [place] [address] Parsad Claire MD GI PROCEDURE ORDERABLES Final Result * Hepatitis C antibody, qualitative (09/23/2019 1:50 PM EDT) HCV NON-REACTIV E NON-REACTI VE [facility] Blood 09/23/2019 1:50 PM EDT 09/23/2019 1:54 PM EDT us Prasad Claire MD LAB BLOOD ORDERABLES Final Re sult [facility] [address] [place] [address] from Last 3 Months or Most Recently Relevant to Health Maintenance Insurance MEDICARE PART A & B [employer] SUPPLEMENT MEDICARE PART A & B [employer]OSS MEDEX SUPPLEMENT MEDICARE PART A & B [employer] SUPPLEMENT MEDICARE PART A & B [employer] SUPPLEMENT MEDICARE PART A & B [employer] MED[employer] SUPPLEMENT MEDICARE PART A & B [place] [employer] MEDEX SUPPLEMENT MEDICARE PART A & B memory lane syndications CROSS MEDEX SUPPLEMENT MEDICARE PART A & B memory [employer] syndications CROSS MEDEX SUPPLEMENT MEDICARE PART A & B memory lane syndications CROSS MEDEX SUPPLEMENT Advance Directives For more information, please contact: [phone] (9AM - 5PM [facility], Thursday-Thursday) Documents on File Type Date Recorded Patient Wrapper Dipper Expl anation Healthcare Proxy 06/01/2024 [facility] Care Proxy Form scan 06/01/2024 Care Teams Attic Blower Relationship Specialty Start Date End Date Prasad Claire MD [address] [place] [address] [email or web address] PCP - General 11/27/16 Prasad Claire MD [address] [place] [address] [email or web address] Insurance Assigned Provider 05/16/23 Alan Olsen MD [address] [place] [address] [place] [address] Neurosurgery 11/28/19 Winston Restrepo MD [address] [place] [address] Dr NGUYEN_[place] [address] Neurosurgery 12/01/19 Chris Metz MD [address] [place] [address] Interventional Pain Management 12/01/19 Additional Source Comments The information contained in this document represents components of the legal health record. It is not the complete legal health record.[facility]
--- OUTSIDE RECORDS SUMMARY | 2024-11-11 11:39 | XMS_ITS | Encounter Summary ---
Author Organization [facility] Address [address] [facility] [address] [place] [address] Phone Care Team Providers Care Emery Grinder Name Role Phone Prasad Claire MD Primary Care Provider [phone] Prasad Claire MD Unavailable [phone] ArAlan MD Unavailable Winston Restrepo MD Unavailable [phone] Chris Metz MD Unavailable Encounter Details Date Type Department Care Team (Latest Contact Info) Description 06/22/2020 Transcribe Orders Virtual Department [address] [place] [address] Lucia Garcia MD [address] [place], [place] [id number] [email or web address] Pre-procedure lab exam (Primary Dx) Social History Tobacco Use Types Packs/Day Years [...] Description 11/15/2024 9:40 AM EDT Office Visit [facility] Spine Medicine [address] [place] [address] Capo Vega MD 22 [facility], 2nd [place] [address] 11/28/2024 3:00 PM EDT Office Visit [facility] Internal Medicine [address] [place] [address] Prasad Claire MD 40 [place] [address] 01/17/2025 11:30 AM EST Office Visit [facility] [address] [place] [address] Chidi Levy DO 22 [place] [address] documented as of this encounter Results * COVID-19 PCR Order (07/13/2020 11:05 AM EDT) COVID-19 Comment [id number] [facility] COVID Testing Status In-house testing being performed [facility] 07/13/2020 11:0 5 AM EDT 07/13/2020 1:20 PM EDT us Lucia Garcia MD BODY FLUIDS AND STOOLS ORDERABL ES Final Result [facility] [address] [place] [address] documented in this encounter Visit Diagnoses Diagnosis Pre-procedure lab exam- Primary Pre-procedural laboratory examination documented in this encounter Additional Health Concerns Assessment Noted Time PHQ-2 Depression Total Score: 0 01/28/20 21 8:53 AM EST documented as of this encounter Care Teams Emery Grinder Relationship Specialty Start Date End Date Prasad Claire MD [address] [place] [address] PCP - General 11/27/16 Prasad Claire MD [address] [place] [address] Insurance Assigned Provider 05/16/23 Alan Olsen MD [address] [place] [address] [place] [address] Neurosurgery 11/28/19 Winston Restrepo MD [address] [place] [address] Dr NGUYEN_[place]rological [place] [address] Neurosurgery 12/01/19 Chris Metz MD 9 [place] [address] Interventional Pain Management 12/01/19 documented as of this encounter Additional Source Comments The information contained in this document represents components of the legal health record. It is not the complete legal health record.[facility]
--- OUTSIDE RECORDS SUMMARY | 2024-11-11 11:39 | XMS_ITS | Encounter Summary ---
Author Organization [facility] Address [address] [employer] [facility] [address] [place] [address] Phone Care Team Providers Care Nanny Babysitter Name Role Phone Prasad Claire MD Primary Care Provider [phone] Prasad Claire MD Unavailable [phone] OkAlan MD Unavailable Winston Restrepo MD Unavailable [phone] Chris Metz MD Unavailable Encounter Details Date Type Department Care Team (Late st Contact Info) Description 10/26/2023 Procedure Pass [facility], [address] [address] Social History Tobacco Use Types Packs/Day Years Used Date Smoking Tobacco: Some Days Cigarettes 0.5 26 Smokeless Tobacco: Never Comments:Pt reports she quit smoking in 2007 but currently smokes 1 cigarette every couple of months-noted 04/03/23 3-5 cigarettes a week-noted 06/04/23 2-3 cigarette a week if that-noted 10/26/23 10 cigarettes a week-noted 11/06/23 Alcohol Use Standard Drinks/Week Comments Not Currently [...] Description 11/15/2024 9:40 AM EDT Office Visit [facility] Spine Medicine [address] [place] [address] [place] [address] Capo Vega MD [address] [place] [address], [address] [place] [address] 11/28/2024 3:00 PM EDT Office Visit [facility] Internal Medicine [address] [place] [address] Prasad Claire MD 40 [place] [address] 01/17/2025 11:30 AM EST Office Visit [facility] [address] [place] [address] Chidi Levy DO [address] [place] [address] documented as of this encounter Visit Diagnoses Not on filedocumented in this encounter Additional Health Concerns Assessment Noted Time PHQ-2 Depression Total Score: 0 10/20/19 10:07 AM EDT documented as of this encounter Care Teams Nanny Babysitter Relationship Specialty Start Date End Date Prasad Claire MD [address] [place] [address] [email or web address] PCP - General 11/27/16 Prasad Claire MD 40 [place] [address] Insurance Assigned Provider 05/16/23 OkAlan MD [address] [place] [address] [place] [address] Neurosurgery 11/28/19 Winsotn Restrepo MD [address] [place] [address] Dr HOLLAND 503_[place]rological [place] [address] Neurosurgery 12/01/19 Chris Metz MD 9 [place] [address] Interventional Pain Management 12/01/19 documented as of this encounter Additional Source Comments The information contained in this document represents components of the legal health record. It is not the complete legal health record.[facility]
--- OUTSIDE RECORDS SUMMARY | 2024-11-11 11:39 | XMS_ITS | Encounter Summary ---
Author Organization [facility] Address [address] [employer] [facility] [address] [place] [address] Phone Care Team Providers Care Roof Slater Name Role Phone Prasad Claire MD Primary Care Provider [phone] Prasad Claire MD Unavailable [phone] Alan Olsen MD Unavailable Winston Restrepo MD Unavailable [phone] Chris Metz MD Unavailable Encounter Details Date Type Department Care Team (Latest Contact Info) Description 06/19/2020 Transcribe Orders Virtual Department 30 [place] [address] Lucia Garcia MD [address] [place], [place] [id number] [email or web address] Pre-procedure lab exam (Primary Dx) Social History [...] Description 11/15/2024 9:40 AM EDT Office Visit [facility] Spine Medicine 22 [place] [address] Capo Vega MD 22 [facility], 2nd [place] [address] 11/28/2024 3:00 PM EDT Office Visit [facility] Internal Medicine 40 [place] [address] Prasad Claire MD 40 [place] [address] 01/17/2025 11:30 AM EST Office Visit [facility] [address] [place] [address] Chidi Levy DO 22 [place] [address] documented as of this encounter Visit Diagnoses Diagnosis Pre-procedure lab exam- Primary Pre-procedural laboratory examination documented in this encounter Additional Health Concerns Assessment Noted Time PHQ-2 Depression Total Score: 0 03/08/19 21 8:53 AM EST documented as of this encounter Care Teams Roof Slater Relationship Specialty Start Date End Date Prasad Claire MD 40 [place] [address] PCP - General 11/27/16 Prasad Claire MD [address] [place], [place] [phone] Insurance Assigned Provider 05/16/23 Alan Olsen MD [address] [place] [address] [place] [address] Neurosurgery 11/28/19 Winston Restrepo MD [address] [place] [address] Dr NGUYEN_Neurological [place] [address] Neurosurgery 12/01/19 Chris Metz MD 9 [place] [address] Interventional Pain Management 12/01/19 documented as of this encounter Additional Source Comments The information contained in this document represents components of the legal health record. It is not the complete legal health record.[facility]
== END 2024-11-11 10:40 | disposition home or self-care (01) ==
LOC: HO.MAMMO 10:39
PROVIDERS: PCP Internal Medicine; Visit Provider Internal Medicine
DX: Z12.31 Encounter for screening mammogram for malignant neoplasm of breast (principal); M81.0 Age-related osteoporosis without current pathological fracture
CPT/HCPCS: 77063; 77067; 77080

== ENCOUNTER → 2024-11-11 11:15 | Outpatient (BNV) | payer MEDICARE, SELFPAY | PROVIDERS: PCP Internal Medicine; Visit Provider Radiology Diagnostic Radiology | DX: E28.39 Other primary ovarian failure (principal) | CPT/HCPCS: 77080 ==

== ENCOUNTER 2024-12-07 14:12 | Outpatient (AMB) | payer MEDICARE, SELFPAY ==
--- NOTE | 2024-12-07 14:35 | HO.SPINEOV ---
Intake Visit Reasons: Left sided sciatic pain Intake Note: Mrs. Huerta is here today c/o Left sided sciatica pain. [employer] Sharpshooter Required: No Allergies No Known Allergies Allergy (Verified 02/25/24 10:53) Assessment & Plan Assessment & Plan (1) Neurogenic claudication: Code(s): R29.818 - Other symptoms and signs involving the nervous system Category: Medical Plan Dear colleague, On 10/29/2024, I saw for a consult Adrienne Huerta for recurrent left leg pain. This patient underwent a lumbar microdiskectomy in 2023 for left sciatica to which she responded well. In August of this year she developed discomfort in an L5 distribution in the morning. In September her symptoms changed and became more intense and more constant. The patient states that she can hardly walk or stand before she develops a pain that radiates to her left hip outside of her thigh into the outside and calf region of the lower leg. The pain is associated with numbness. Sitting down improves the symptoms. Laying down relieves the symptoms completely. Leaning forward over a shopping cart helps to. On exam, inward and outward rotation of the left hip is uneventful. Straight leg raise is negative. Changing positions from sitting to standing this is pain in her leg and left hip. The patient is suffering from neurogenic claudication on the left side. She has no new imaging. I will order an MRI of the lumbar spine with contrast to assess the diameter of the spinal canal and to see if she has a recurrent disc herniation. The patient will return to my office after the study is done. I spent 30 minutes in his consult for history and physical and discussing plan of care. Daniel Tai MD, PhD Spine Fellowship Trained Neurosurgeon Director, [facility] Orders: Orders MR lumbar spine wo/w con Today M51.26 - Other intervertebral disc displacement, lumbar region, R29.818 - Other symptoms and signs involving the nervous system, Z98.890 - Other specified postprocedural states Coding Level of Care Code Est Pt Level 4 (82302) Diagnoses Neurogenic claudication R29.818
--- OUTSIDE RECORDS SUMMARY | 2024-12-07 18:18 | XMS_ITS | Encounter Summary ---
Author Organization [facility] Address [address] [employer] [facility] [address] [place] [address] Phone Care Team Providers Care In Home Caregiver Name Role Phone Prasad Claire MD Primary Care Provider Prasad Claire MD Unavailable [phone] Alan Olsen MD Unavailable Winston Restrepo MD Unavailable [phone] Chris Metz MD Unavailable Encounter Details Date Type Department Care Team (Latest Contact Info) Description 10/13/2024 Ancillary Orders [facility] Internal Medicine 40 [place], [place] [phone] Shilpi Thornton PA-C [address] [place], [place] [phone] [email or web address] Bilateral hip pain (Primary Dx); Right sided [...] Care Team (Late st Contact Info) Description 01/17/2025 11:30 AM EST Office Visit [facility] [address] [place] [address] Chidi Levy, DO [address] [place] [address] [email or web address] documented as of this encounter Results * [...] clinician's provided indication for this examination in [facility]: Pain COMPARISON: XR HIP 2 VW LEFT [...] clinician's provided indication for this examination in [facility]:Pain COMPARISON: XR HIP 2 VW LEFT PLUS [...] Thornton PA-C IMG XR PELVIS Final Result documented in [...] documented as of this encounter Care Teams In Home Caregiver Relationship Specialty Start Date End Date Prasad Claire MD [address] [place] [address] [email or web address] PCP - General 11/27/16 Prasad Claire MD [address] [place] [address] [email or web address] Insurance Assigned Provider 05/16/23 Alan Olsen MD [address] [place] [address] [place] [address] Neurosurgery 11/28/19 Winston Restrepo MD [address] [place] [address] Dr NGUYEN_[place]rological [place] [address] Neurosurgery 12/01/19 Chris Metz MD [address] [place] [address] Interventional Pain Management 12/01/19 documented as of this encounter Additional Source Comments The information contained in this document represents components of the legal health record. It is not the complete legal health record.[facility]
--- OUTSIDE RECORDS SUMMARY | 2024-12-07 18:18 | XMS_ITS | Encounter Summary ---
Author Organization [facility] Address [address] [employer] [facility] [address] [place] [address] Phone Care Team Providers Care Senior Electrical Designer Name Role Phone Prasad Claire MD Primary Care Provider [phone] Prasad Claire MD Unavailable [phone] PaAlan MD Unavailable Winston Restrepo MD Unavailable [phone] Chris Metz MD Unavailable Encounter Details Date Type Department Care Team (Late st Contact Info) Description 10/26/2023 Procedure Pass [facility], [address] [address] Social History Tobacco Use Types Packs/Day Years [...] 11:30 AM EST Office Visit [facility] [address] [place] [address] Chidi Levy DO [address] [place] [phone] [email or web address] documented as of this encounter Visit Diagnoses Not on filedocumented in this encounter Additional Health Concerns Assessment Noted Time PHQ-2 Depression Total Score: 0 10/20/19 24 10:07 AM EDT documented as of this encounter Care Teams Senior Electrical Designer Relationship Specialty Start Date End Date Prasad Claire MD [address] [place] [address] [email or web address] PCP - General 11/27/16 Prasad Claire MD [address] [place], [place] [email or web address] Insurance Assigned Provider 05/16/23 Alan Olsen MD [address] [place] [address] Dr HOLLAND [address] [place] [address] Neurosurgery 11/28/19 Winston Restrepo MD [address] [place] [address] Dr NGUYEN_[place]rological [place] [address] Neurosurgery 12/01/19 Chris Metz MD [address] [place] [address] Interventional Pain Management 12/01/19 documented as of this encounter Additional Source Comments The information contained in this document represents components of the legal health record. It is not the complete legal health record.[facility]
--- OUTSIDE RECORDS SUMMARY | 2024-12-07 18:18 | XMS_ITS | Clinical Summary ---
Author Organization [facility] Address [address] 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 bilateral low back pain without sciatica TAKE 1 TABLET(2 MG) BY MOUTH EVERY 8 HOURS NEEDED FOR MUSCLE SPASMS 30 tablet 025 Active pravastatin (PRAVACHOL) 80 MG tabletIndications:Pure hypercholesterolemia TAKE 1 TABLET DAILY 90 tablet 3 025 Active gabapentin (NEURONTIN) 300 MG capsuleIndications:Tiffani jordan osteoarthritis involving multiple joints TAKE 1 CAPSULE 4 TIMES DAILY 360 capsule 3 025 Active oxyCODONE 5 MG immediate release tabletIndications:Bila teral hip pain,Acute low back pain with sciatica, sciatica laterality unspecified, unspecified back pain laterality One pill every 8 hours prn pain Partial fill ok 84 tablet 025 Active predniSONE (DELTASONE) 20 MG tabletIndications:Acut e low back pain with sciatica, sciatica laterality unspecified, unspecified back pain laterality 2 daily for 5 days 10 tablet 025 Active gabapentin (NEURONTIN) 300 MG capsuleIndications:Tiffani jordan osteoarthritis involving multiple joints 600mg po tid 540 capsule 3 024 2024 Discontinued oxyCODONE 5 MG immediate release tabletIndications:Bila teral hip pain,Acute low back pain with sciatica, sciatica laterality unspecified, unspecified back pain laterality Take 2 tablets (10 mg total) by mouth every 8 (eight) hours as needed for pain (specific location in comments) (Back and leg pain). Partial fill ok 42 tablet 025 2024 Discontinued(R eorder) oxyCODONE 5 MG immediate release tabletIndications:Bila teral hip pain,Acute low back pain with sciatica, sciatica laterality unspecified, unspecified back pain laterality Take 2 tablets (10 mg total) by mouth every 8 (eight) hours as needed for pain (specific location in comments) (Back and leg pain). Partial fill ok 42 tablet 025 2024 Discontinued Active Problems Problem [...] if symptoms return, would recommend referring to orthopedics/[facility] for further assessment. Hypertension [...] is due for repeat DXA scan at [facility] on 09/30/2024. I discussed this with her today and I asked the front staff to send the DXA scan request again to [facility] and to give the patient a copy just in case she does not hear from them she can contact them and bring the request herself. Also requested second zoledronic acid infusion at [facility] which should take place close to 10/26/2024. [...] This study has to be done at [facility]. Prior to the follow-up visit she [...] Encounters Date Type Department Care Team Description 11/28/2024 3:00 PM EDT Office Visit [facility] [address] [facility] [place] [address] Prasad Radford MD Routine general medical examination at a health care facility (Primary Dx); Bilateral hip pain; Acute low back pain with sciatica, sciatica laterality unspecified, unspecified back pain laterality; Chronic, continuous use of opioids; Vitamin B12 deficiency 11/25/2024 Refill [facility] [address] [facility] [place] [address] Prasad Radford MD Medication Refill 11/23/2024 Orders Only [facility] [address] [facility] [place] [address] Shannon Nicholas MD 11/22/2024 Refill [facility] [address] [facility] [place] [address] Prasad Radford MD Medication Refill 11/14/2024 Orders Only [facility] Medicine [address] [place] [address] ProviderShannon MD 11/14/2024 Telephone [facility] Spine Medicine [address] [place] [address] Presley Leavitt Appointment (11/15 Appointment Cancellation) 11/10/2024 10:08 AM EDT - 11/10/2024 11:59 PM EDT Hospital Encounter [address] [address] Shilpi Thornton PA-C Discharge Disposition: Home or Self Care 11/10/2024 Telephone [facility] [address] [place] [address] Evelina Rojas RN Results 11/03/2024 Telephone [facility] [address] [place] [address] Prasad Radford MD referral 10/31/2024 2:00 PM EDT Infusion [address] [address] Chidi Levy DO Age-related osteoporosis without current pathological fracture (Primary Dx) 10/30/2024 Refill [facility] [address] [place] [address] Prasad Radford MD Medication Refill 10/26/2024 Refill [facility] [address] [place] [address] Prasad Radford MD Medication Refill 10/13/2024 12:27 PM EDT - 10/13/2024 11:59 PM EDT Hospital Encounter [facility] [address] [place] [address] Shilpi Thornton PA-C Discharge Disposition: Home or Self Care 10/13/2024 11:20 AM EDT Office Visit [facility] [address] [place] [address] Shilpi Thornton PA-C Bilateral hip pain (Primary Dx); Right sided sciatica 10/13/2024 Ancillary Orders [facility] [address] [place] [address] Shilpi Thornton PA-C Bilateral hip pain (Primary Dx); Right sided sciatica 10/11/2024 Telephone [facility] [address] [place] [address] Prasad Radford MD Leg Pain 10/04/2024 Refill [facility] [address] [place] [address] Prasad Radford MD Medication Refill 09/25/2024 Refill [facility] [address] [place] [address] Prasad Radford MD Medication Refill 09/23/2024 9:10 AM EDT Office Visit [facility] [address] [place] [address] [place] [address] Chidi Levy DO Age-related osteoporosis without current pathological fracture (Primary Dx) 09/22/2024 Refill [facility] [address] [place] [address] Prasad Radford MD Medication Refill from Last 3 Months Immunizations Immunization Administration Dates Next Due COVID-19 (Pre-12/01) Pfizer Vaccine, mRNA, PF 05/31/2020,05/10/2020 INFLUENZA, SPLIT VIRUS, TRIV ALENT W/ PRESERVATIVE IM 11/20/2016,10/14/2011 Influenza High-Dose Quadriva lent Preservative Free IM 11/03/2022,12/17/2021,10/20/2019 Influenza High-Dose Trivalen t Preservative Free IM 10/26/2023,10/28/2018,12/10/2015,12/07,12/02/2013,10/21/2012 Influenza Quadrivalent Prese rvative Free IM 12/05/2020 Influenza Trivalent Adjuvant ed Preservative free IM 11/09/2024,11/12/2017 Influenza, Unspecified Formulation 10/28,11/12/2017,10/18/2010,11/12 Pneumococcal conjugate PCV13 [...] week-noted 12/10/23 3-4 cigarettes a week-noted 02/11/24 4-5 cigarettes Qweek-noted 11/28/24 Alcohol Use Standard Drinks/Week Comments Not Currently [...] ecorded Denied Basic Needs Not on file 11/27/2024 In the past 12 months have y ou been in a relationship with a person who hurts, threatens, or tries to control you? No 11/27/2024 Worried food would run out Not on file 11/27 In the past 12 months have y ou been in a relationship with a person who hurts, threatens, or tries to control you? No 11/27/2024 Comments No Sex and Gender Information Value Date Recorded Sex Assigned at Female 08/03/2018 8:36 AM EDT Legal Sex Female 10:08 PM EDT Gender Identity Female 08/03/2018 8:36 AM EDT Sexual Orientation Choose not to disclose 2018 8:36 AM EDT Last Filed Vital Signs Vital Sign Reading Time Taken Comments Blood Pressure 122/70 11/28/2024 3:11 PM EDT Pulse 88 11/28/2024 3:11 PM EDT Temperature 36.7 C (98 F) 11/28/2024 3:11 PM EDT Respiratory Rate 18 10/31/2024 2:45 PM EDT Oxygen Saturation 98% 11/28/2024 3:11 PM EDT Inhaled Oxygen Concentration - - Weight 58.2 kg (128 lb 3.2 oz) 11/28/2024 3:11 P M EDT Height 157.2 cm (5' 1.89 ) 11/28/2024 3:11 PM ED T Body Mass Index 23.53 11/28/2024 3:11 PM EDT Plan of Treatment Upcoming Encounters Date Type Department Care Team (Late st Contact Info) Description 01/17/2025 11:30 AM EST Office Visit [facility] [address] [place] [address] [place] [address] Chidi Levy DO [address] [place] [address] [email or web address] Health Maintenance Due Date Last Done Comments COLOGUARD 1990 FIT TEST 1990 FOBT 1990 SIGMOIDOSCOPY 1990 VIRTUAL COLONOSCOPY 1990 COVID-19 VACCINE ( season) 2024 12/24/2022, 02/14/2021, 05/31/2020, Additional history exists CREATININE LEVEL 04/22/2025 04/22/2024, 05/2023, 04/06/2023, Additional history exists POTASSIUM LEVEL 04/22/2025 04/22/2024, 09/0 05/2023, 04/06/2023, Additional history exists BLOOD PRESSURE 05/29/2025 11/28/2024 DEPRESSION SCREENING 11/27/2025 11/27/2024 SMOKING Hx and SMOKELESS TOBACCO SCREENING 11/28/2025 11/28/2024 FOLLOW UP BONE DENSITY TESTING 11/11/2026 11/11/2024, 09/24/2023, 09/30/2022, Additional history exists COLONOSCOPY 09/19/2027 09/18/2022, 01/20/2017 COLORECTAL CANCER SCREENING 09/19/2027 LIPID PANEL 04/22/2029 04/22/2024, 03/13, 03/26/2022, Additional history exists Adult Td,Tdap Booster 11/03/2032 11/03/2022, 012 ZOSTER VACCINES Completed 01/03/2019, 10/10, 04/24/2011 HEPATITIS C SCREENING Completed 09/23/2019, 020 PNEUMOCOCCAL VACCINES (50+ years) Completed 10/20/2019, 12/04/2014, 10/18/2010 RSV VACCINE Completed 11/12/2023 INFLUENZA VACCINE Completed 11/09/2024, , 11/03/2022, Additional history exists OSTEOPOROSIS SCREENING INITIAL (ONE-TIME) Completed 11/11/2024, 09/24/2023, 09/30/2022, Additional history exists HEPATITIS A VACCINES Aged Out No long [...] Procedure Name Priority Date/Time Associated Diagnosis Comments MAMMOGRAPHY Routine 11/23/2024 7:50 AM EDT MAMMOGRAPHY Routine 11/11/2024 2:31 PM EDT HM DEXA SCAN Routine 11/11/2024 1:05 PM EDT US AORTA DUPLEX COMPLETE Routine 11/10/2024 10:46 AM EDT Infrarenal abdominal aortic aneurysm (AAA) without rupture XR HIPS 2+ VW EA BILAT PLUS PELVIS Routine 10/13/2024 12:50 PM EDT Bilateral hip pain LIPID PANEL Routine 04/22/2024 9:16 AM EDT Pure hypercholesterolemia COMPREHENSIVE METABOLIC PANEL Routine 04/22/2024 9:16 AM EDT Primary osteoarthritis, unspecified site Primary hypertension ENDOSCOPY, COLON 09/18/2022 8:27 AM EDT HEPATITIS C ANTIBODY, QUALITATIVE Routine 09/23/2019 1:50 PM EDT Need for hepatitis C screening test from Last 3 Months or Most Recently Relevant to Health Maintenance Results * MAMMOGRAPHY FOR RESULT ENTRY ONLY (11/23/2024 7:50 AM EDT) us Historical Provider HEALTH MAINTENANCE Final Result * HM MAMMOGRAPHY FOR RESULT ENTRY ONLY (11/11/2024 2:31 PM EDT) Historical Provider HEALTH MAINTENANCE Final Result * HM DEXA SCAN (11/11/2024 1:05 PM EDT) us Historical Provider MD HEALTH MAINTENANCE Final Result * US Aorta Duplex Complete (11/10/2024 10:46 [...] aortic aneurysm measuring up to 3.4 cm. Shilpi Thornton PA-C IMG US ABDOMEN Final [...] clinician's provided indication for this examination in [facility]: Pain COMPARISON: XR HIP 2 VW [...] clinician's provided indication for this examination in [facility]:Pain COMPARISON: XR HIP 2 VW LEFT [...] Partially imaged infrarenal abdominal aortic aneurysm. Shilpi STILES-C IMG XR PELVIS Final Result * Comprehensive metabolic panel (04/22/2024 9:16 AM EDT) SODIUM 141 133 - 146 mmol/L [facility] POTASSIUM 4.4 3.3 - 5.1 mmol/L [facility] CHLORIDE 105 96 - 108 mmol/L [facility] CO2 30 21 - 35 mmol/L [facility] BUN 12 6 - 19 mg/dL [facility] CREATININE 0.80 0.5 - 1.5 mg/dL [facility] GLUCOSE 99 70 - 99 mg/dL [facility] ALBUMIN 4.3 3.9 - 4.8 g/dL [facility] TOTAL PROTEIN 7.0 6.5 - 8.0 g/dL [facility] CALCIUM 9.6 8.4 - 10.3 mg/dL [facility] ALKALINE PHOSPHATASE 49 39 - 117 U/L [facility] TOTAL BILIRUBIN 0.3 0.0 - 1.2 mg/dL [facility] AST 31 0 - 37 U/L [facility] ALT 26 0 - 40 U/L [facility] GLOBULIN 2.7 1 - 4.8 g/dL [facility] EGFR 75 >59 mL/min/1.7 3m2 [facility] Comment:Estimated glomerular filtration rate calculated using the CKD-EPI refit equation. ANION GAP 10 10 - 20 mmol/L [facility] Blood 04/22/2024 9:16 AM EDT 04/22/2024 11:58 AM EDT us Prasad Radford MD LAB BLOOD ORDERABLES Final Re sult [address] [address] * (ABNORMAL) Lipid panel (04/22/2024 9:16 AM EDT) HDL 63 mg/dL [facility] Comment: Interpretation <40 mg/dL: Low HDL cholesterol (major risk factor for CHD) Greater than or equal to 60 mg/dL: High HDL cholesterol ( negative risk factor for CHD) HDL - cholesterol is affected by a number of factors, e.g. smoking, excerise, hormones, sex and age. CHOLESTEROL 172 0 - 240 mg/dL [facility] TRIGLYCERIDES 103 30 - 160 mg/dL [facility] LDL 88 50 - 129 mg/dL [facility] Comment: LDL levels in terms of risk for coronary heart disease: <100 mg/dL: Optimal 100-129 mg/dL: Near or above optimal 130-159 mg/dL: Borderline high 160-189 mg/dL: High >190 mg/dL: Very High CARDIAC RISK RATIO 2.7(L) 3.3 - 4.4 C [facility] Blood 04/22/2024 9:16 AM EDT 04/22/2024 12:41 PM EDT us Prasad Radford MD LAB BLOOD ORDERABLES Final Re sult [facility] [address] [place] [address] * ENDOSCOPY, COLON (09/18/2022 8:27 AM EDT) Narrative Transcriptions Chan Brown MD - 09/18/2022 8:27 AM EDT [facility] Patient Name: Adrienne Huerta Attending MD:: CHAN BROWN MD, Procedure Date: 09/18/2022 8:27 AM Date of : 1945 Age: 76 Admit Type: Outpatient Gender: Female Room: [place] [address] Referring MD: PRASAD RADFORD MD Exam Type: Colonoscopy Indications: Screening for [...] monitored continuously. The Olympus adult variable colonoscope [id number] #[id number] was introduced through the anus and [...] 8:27 AM Procedure Code(s): --- Professional --- 42461, Colonoscopy, flexible; diagnostic, including collection of specimen(s) by brushing or washing, when performed (separateprocedure) --- Technical --- 43525, Colonoscopy, flexible; diagnostic, including collection of specimen(s) by brushing or washing, when performed (separateprocedure) Diagnosis Code(s): --- Professional --- Z12.11, Encounter for screening for malignantneoplasm of colon K57.30, Diverticulosis of large intestine without perforation or abscess without bleeding --- Technical --- Z12.11, Encounter for screening for malignantneoplasm of colon K57.30, Diverticulosis of large intestine without perforation or abscess without bleeding CPT copyright 2021 [employer]. All rights reserved. The codes documented in this report are preliminary and upon drug enforcement agent reviewmay be revised to meet current compliance requirements. Procedure Date: 09/18/2022 8:27:[address] [place] [address] Prasad Radford MD GI PROCEDURE ORDERABLES Final Result * Hepatitis C antibody, qualitative (09/23/2019 1:50 PM EDT) HCV NON-REACTIV E NON-REACTI VE [facility] Blood 09/23/2019 1:50 PM EDT 09/23/2019 1:54 PM EDT Prasad Radford MD LAB BLOOD ORDERABLES Final Re sult [address] [address] from Last 3 Months or Most Recently Relevant to Health Maintenance Insurance MEDICARE PART A & B [employer]UE [employer] MEDEX SUPPLEMENT MEDICARE PART A & B [employer] CROSS MEDEX SUPPLEMENT MEDICARE PART A & B [employer]EX SUPPLEMENT MEDICARE PART A & B [employer]EX SUPPLEMENT MEDICARE PART A & B [employer] MEDEX SUPPLEMENT MEDICARE PART A & B [employer] MEDEX SUPPLEMENT MEDICARE PART A & B Member Subscriber Plan / Payer (Ef fective 2010-Present) Name:Adrienne Huerta Member ID:[id number] Relation to Subscriber:Self Name:Adrienne Huerta Subscriber ID:[id number] Payer ID:[id number] Group ID:Not on file Type:Medicare Address: [employer] [facility].[address] [address] [place] [employer] MEDEX SUPPLEMENT MEDICARE PART A & B [employer] MEDEX SUPPLEMENT MEDICARE PART A & B [employer] MEDEX SUPPLEMENT Advance Directives For more information, please contact: [phone] (9AM - 5PM [facility], Thursday-Thursday) Documents on File Type Date Recorded Patient Brush Cutter Expl anation Healthcare Proxy 06/01/2024 [facility] Care Proxy Form scan 06/01/2024 Care Teams Core Filer Relationship Specialty Start Date End Date Prasad Radford MD [address] [place] [address] [email or web address] PCP - General 11/27/16 Prasad Radford MD [address] [place] [address] [email or web address] Insurance Assigned Provider 05/16/23 Alan Olsen MD [address] [place] [address] [place] [address] Neurosurgery 11/28/19 Winston Restrepo MD [address] [place] [address] Dr [address]_[place] [address] Neurosurgery 12/01/19 Chris Metz MD [address] [place] [address] Interventional Pain Management 12/01/19 Additional Source Comments The information contained in this document represents components of the legal health record. It is not the complete legal health record.[facility]
--- OUTSIDE RECORDS SUMMARY | 2024-12-07 18:18 | XMS_ITS | Encounter Summary ---
Author Organization [facility] Address [address] [employer] [facility] [address] [place] [address] Phone Care Team Providers Care Mirror Fabrication Supervisor Name Role Phone Prasad Claire MD Primary Care Provider [phone] Prasad Claire MD Unavailable [phone] Alan Olsen MD Unavailable Winston Restrepo MD Unavailable [phone] Chris Metz MD Unavailable Encounter Details Date Type Department Care Team (Late st Contact Info) Description 11/23/2024 Orders Only [facility] Medical [facility] Internal Medicine [address] [place] [address] Provider, MD Shannon [facility] [place] [phone] Social History Tobacco Use Types Packs/Day Years [...] 11:30 AM EST Office Visit [facility] [address] [place] [address] Chidi Levy DO [address] [place] [address] documented as of this encounter Procedures Procedure Name Priority Date/Time Associated Diagnosis Comments HM MAMMOGRAPHY Routine 11/23/2024 7:50 AM EDT documented in this encounter Results * HM MAMMOGRAPHY FOR RESULT ENTRY ONLY (11/23/2024 7:50 AM EDT) us Historical Provider HEALTH MAINTENANCE Final Result documented in this encounter Visit Diagnoses Not on filedocumented in this encounter Additional Health Concerns Assessment Noted Time PHQ-2 Depression Total Score: 0 10/20/19 10:07 AM EDT documented as of this encounter Care Teams Mirror Fabrication Supervisor Relationship Specialty Start Date End Date Prasad Claire MD [address] [place] [address] PCP - General 11/27/16 Prasad Claire MD [address] [place] [address] [email or web address] Insurance Assigned Provider 05/16/23 Alan Olsen MD [address] [place] [address] [place] [address] Neurosurgery 11/28/19 Winston Restrepo MD [address] [place] [address] Dr NGUYEN_[place]rological [place] [address] Neurosurgery 12/01/19 Chris Metz MD [address] [place] [address] Interventional Pain Management 12/01/19 documented as of this encounter Additional Source Comments The information contained in this document represents components of the legal health record. It is not the complete legal health record.[facility]
--- OUTSIDE RECORDS SUMMARY | 2024-12-07 18:18 | XMS_ITS | Encounter Summary ---
Author Organization [facility] Address [address] [employer] [facility] [address] [place] [address] Phone Care Team Providers Care Health Inspector Name Role Phone Prasad Claire MD Primary Care Provider [phone] Prasad Claire MD Unavailable [phone] WaAlan MD Unavailable Winston Restrepo MD Unavailable [phone] Chris Metz MD Unavailable Encounter Details Date Type Department Care Team (Late st Contact Info) Description 11/10/2019 Procedure [facility], [address] [address] Social History Tobacco Use Types Packs/Day Years [...] AM EST Office Visit [facility] [address] [place] [address] Chidi Levy DO [address] [place] [address] [email or web address] documented as of this encounter Visit Diagnoses Not on filedocumented in this encounter Additional Health Concerns Assessment Noted Time PHQ-2 Depression Total Score: 0 03/08/19 11:14 AM EST documented as of this encounter Care Teams Health Inspector Relationship Specialty Start Date End Date Prasad Claire MD [address] [place] [address] [email or web address] PCP - General 11/27/16 Prasad Claire MD [address] [place] [address] [email or web address] Insurance Assigned Provider 05/16/23 Wa, Alan Alvarez MD [address] [place] [address] [place] [address] Neurosurgery 11/28/19 Winston Restrepo MD [address] [place] [address] Dr NGUYEN_[place]rological [place] [address] Neurosurgery 12/01/19 Chris Metz MD [address] [place] [address] Interventional Pain Management 12/01/19 documented as of this encounter Additional Source Comments The information contained in this document represents components of the legal health record. It is not the complete legal health record.[facility]
--- OUTSIDE RECORDS SUMMARY | 2024-12-07 18:18 | XMS_ITS | Patient Health Record ---
Author Organization [facility] Address [address] [facility] [place] [address] Care Team Providers Care Market Asset Protection Manager Name Role Phone Prasad Claire MD Primary Care Provider Cheko Schmidt Unavailable [phone] Allergies Allergen (clinical drug ingredient) Drug/Non Drug [...] (682.7) Active confirmed Problem Pain in limb (60998696) Pain in Limb (729.5) Active confirmed Problem Paronychia (34943953) Paronychia (681.11) Active confirmed Plan Of Treatment Pending Test Test Name Order Date [id number] NAIL, 1-5 03/07/2013 25359- Debride <25 sq cm 11/24/2012 55366 I&D ABSCESS- SIMPLE,SINGLE 013 Insurance Providers Payer Name Payer Address Payer Phone Subscriber Number Group Number Insured Name Patient Relationship to Insured Coverage Start Date Coverage End Date [facility] 65 Medicare Preferred [address] [place] [address] [id number] Adrienne Huerta Self - patient is the insured Medical (General) History Medical History History ICD Code osteoarthritis peptic ulcer disease back, hip, knee pain osteoporosis hematuria chicken pox Surgical History Surgery Date(Month/Year) knee surgery, left back surgery-lower 02/1983 gall bladder 04/1968
--- OUTSIDE RECORDS SUMMARY | 2024-12-07 18:18 | XMS_ITS | Encounter Summary ---
Author Organization [facility] Address [address] [facility] [address] [place] [address] Phone Care Team Providers Care Supervisor Parking Lot Name Role Phone Prasad Claire MD Primary Care Provider [phone] Prasad Claire MD Unavailable [phone] CaAlan MD Unavailable Winston Restrepo MD Unavailable [phone] Chris Metz MD Unavailable Encounter Details Date Type Department Care Team (Late st Contact Info) Description 11/14/2024 Orders Only [facility] [address] [place] [address] Provider, MD [facility] [place] [address] Social History Tobacco Use Types Packs/Day Years [...] 11:30 AM EST Office Visit [facility] [address] [place] [address] Chidi Levy DO [address] [place] [address] [email or web address] documented as of this encounter Procedures Procedure Name Priority Date/Time Associated Diagnosis Comments MAMMOGRAPHY Routine 11/11/2024 2:31 PM EDT DEXA SCAN Routine 11/11/2024 1:05 PM EDT documented in this encounter Results * MAMMOGRAPHY FOR RESULT ENTRY ONLY (11/11/2024 2:31 PM EDT) us Historical Provider HEALTH MAINTENANCE Final Result * DEXA SCAN (11/11/2024 1:05 PM EDT) us Historical Provider HEALTH MAINTENANCE Final Result documented in this encounter Visit Diagnoses Not on filedocumented in this encounter Additional Health Concerns Assessment Noted Time PHQ-2 Depression Total Score: 0 10/20/19 10:07 AM EDT documented as of this encounter Care Teams Supervisor Parking Lot Relationship Specialty Start Date End Date Prasad Claire MD [address] [place] [address] PCP - General 11/27/16 Prasad Claire MD 40 [place] [address] Insurance Assigned Provider 05/16/23 Alan Olsen MD [address] [place] [address] [place] [address] Neurosurgery 11/28/19 Winston Restrepo MD [address] [place] [address] Dr HOLLAND 503_[place] [address] Neurosurgery 12/01/19 Chris Metz MD 9 [place] [address] Interventional Pain Management 12/01/19 documented as of this encounter Additional Source Comments The information contained in this document represents components of the legal health record. It is not the complete legal health record.[facility]
--- OUTSIDE RECORDS SUMMARY | 2024-12-07 18:18 | XMS_ITS | Encounter Summary ---
Author Organization [facility] Address [address] [employer] [address] [facility] [address] [place] [address] Phone Care Team Providers Care Crimp Setter Name Role Phone Prasad Claire MD Primary Care Provider [phone] Prasad Claire MD Unavailable [phone] NyAlan MD Unavailable Winston Restrepo MD Unavailable [phone] Chris Metz MD Unavailable Encounter Details Date Type Department Care Team (Late Contact Info) Description 01/20/2017 Procedure Pass [facility]oscopy Admitting Dept Virtual Department [address] [place] [address] Social History Tobacco Use Types Packs/Day Years [...] Upcoming Encounters Date Type Department Care Team ([facility] Contact Info) Description 01/17/2025 11:30 AM EST Office Visit [facility] [address] [place] [address] Chidi Levy DO 22 [place] [address] [email or web address] documented as of this encounter Visit Diagnoses Not on filedocumented in this encounter Additional Health Concerns Assessment Noted Time PHQ-2 Depression Total Score: 0 12/12/19 17 1:25 PM EDT documented as of this encounter Care Teams Crimp Setter Relationship Specialty Start Date End Date Prasad Claire MD [address] [place] [address] [email or web address] PCP - General 11/27/16 Prasad Claire MD [address] [place] [address] Insurance Assigned Provider 05/16/23 Alan Olsen MD [address] [place] [address] [place] [address] Neurosurgery 11/28/19 Winston Restrepo MD [address] [place] [address] Dr NGUYEN_[place]rological [place] [address] Neurosurgery 12/01/19 Chris Metz MD 9 [place] [address] Interventional Pain Management 12/01/19 documented as of this encounter Additional Source Comments The information contained in this document represents components of the legal health record. It is not the complete legal health record.[facility]
--- OUTSIDE RECORDS SUMMARY | 2024-12-07 18:18 | XMS_ITS | Encounter Summary ---
Author Organization [facility] Address [address] [facility] [address] [place] [address] Phone Care Team Providers Care Associate Professor Of Music Name Role Phone Prasad Claire MD Primary Care Provider [phone] Prasad Claire MD Unavailable [phone] CtAlan MD Unavailable Winston Restrepo MD Unavailable [phone] Chris Metz MD Unavailable Encounter Details Date Type Department Care Team (Latest Contact Info) Description 06/19/2020 Transcribe Orders Virtual Department [address] [place] [address] Lucia Garcia MD [address] [place], [place] [phone] Pre-procedure lab exam (Primary Dx) Social History [...] AM EST Office Visit [facility] [address] [place] [address] Chidi Levy DO [address] [place] [address] [email or web address] documented as of this encounter Visit Diagnoses Diagnosis Pre-procedure lab exam- Primary Pre-procedural laboratory examination documented in this encounter Additional Health Concerns Assessment Noted Time PHQ-2 Depression Total Score: 0 03/08/19 8:53 AM EST documented as of this encounter Care Teams Associate Professor Of Music Relationship Specialty Start Date End Date Prasad Claire MD 40 [place] [address] PCP - General 11/27/16 Praasd Claire MD [address] [place] [address] Insurance Assigned Provider 05/16/23 Alan Olsen MD [address] [place] [address] [place] [address] Neurosurgery 11/28/19 Winston Restrepo MD [address] [place] [address] Dr NGUYEN_Ne[place]rological [place] [address] Neurosurgery 12/01/19 Chris Metz MD [address] [place] [address] Interventional Pain Management 12/01/19 documented as of this encounter Additional Source Comments The information contained in this document represents components of the legal health record. It is not the complete legal health record.[facility]
--- OUTSIDE RECORDS SUMMARY | 2024-12-07 18:18 | XMS_ITS | Encounter Summary ---
Author Organization [facility] Address [address] [facility] [address] [place] [address] Phone Care Team Providers Care Taco Maker Name Role Phone Prasad Claire MD Primary Care Provider Prasad Claire MD Unavailable [phone] IaAlan MD Unavailable Winston Restrepo MD Unavailable [phone] Chris Metz MD Unavailable Encounter Details Date Type Department Care Team (Latest Contact Info) Description 06/22/2020 Transcribe Orders Virtual Department 30 [place] [address] Lucia Garcia MD [address] [place], [place] [phone] [email or web address] Pre-procedure lab exam (Primary Dx) Social History [...] AM EST Office Visit [facility] [address] [place] [address] [place] [address] documented as of this encounter Results * COVID-19 PCR Order (07/13/2020 11:05 AM EDT) COVID-19 Comment [id number] [facility] COVID Testing Status In-house testing being performed [facility] 07/13/2020 11:0 5 AM EDT 07/13/2020 1:20 PM EDT us Lucia Garcia MD BODY FLUIDS AND STOOLS ORDERABL ES Final Result [facility] 30 [place] [address] documented in this encounter Visit Diagnoses Diagnosis Pre-procedure lab exam- Primary Pre-procedural laboratory examination documented in this encounter Additional Health Concerns Assessment Noted Time PHQ-2 Depression Total Score: 0 03/08/19 21 8:53 AM EST documented as of this encounter Care Teams Taco Maker Relationship Specialty Start Date End Date Prasad Claire MD 40 [place] [address] PCP - General 11/27/16 Prasad Claire MD 40 [place] [address] Insurance Assigned Provider 05/16/23 Alan Olsen MD [address] [place] [address] [place] [address] Neurosurgery 11/28/19 Winston Restrepo MD [address] [place] [address] Dr HOLLAND 503_[place]rological [place] [address] Neurosurgery 12/01/19 Chris Metz MD 9 [place] [address] Interventional Pain Management 12/01/19 documented as of this encounter Additional Source Comments The information contained in this document represents components of the legal health record. It is not the complete legal health record.[facility]
--- OUTSIDE RECORDS SUMMARY | 2024-12-07 18:18 | XMS_ITS | Encounter Summary ---
Author Organization [facility] Address [address] [facility] [address] [place] [address] Phone Care Team Providers Care Leather Skinner Name Role Phone Prasad Claire MD Primary Care Provider [phone] Prasad Claire MD Unavailable [phone] MsAlan MD Unavailable Winston Restrepo MD Unavailable [phone] Chris Metz MD Unavailable Encounter Details Date Type Department Care Team (Late st Contact Info) Description 09/18/2022 Procedure Pass [facility] Endoscopy Admitting Dept Virtual Department [address] [place] [address] Social History Tobacco Use Types Packs/Day Years [...] AM EST Office Visit [facility] 22 [place] [address] Chidi Levy DO 22 [place] [address] documented as of this encounter Visit Diagnoses Not on filedocumented in this encounter Additional Health Concerns Assessment Noted Time PHQ-2 Depression Total Score: 0 07/22/19 23 7:29 PM EDT documented as of this encounter Care Teams Leather Skinner Relationship Specialty Start Date End Date Prasad Claire MD 40 [place] [address] PCP - General 11/27/16 Prasad Claire MD 40 [place] [address] Insurance Assigned Provider 05/16/23 Alan Olsen MD [address] [place] [address] [place] [address] Neurosurgery 11/28/19 Winston Restrepo MD [address] [place] [address] Dr NGUYEN_Neurological [place] [address] Neurosurgery 12/01/19 Chris Metz MD [address] [place] [address] Interventional Pain Management 12/01/19 documented as of this encounter Additional Source Comments The information contained in this document represents components of the legal health record. It is not the complete legal health record.[facility]
== END 2024-12-07 15:02 | disposition home or self-care (01) ==
LOC: HO.HNS 14:13
PROVIDERS: PCP Internal Medicine; Visit Provider Neurological Surgery
DX: R29.818 Other symptoms and signs involving the nervous system (principal)
CPT/HCPCS: 99214

== ENCOUNTER → 2024-12-07 14:12 | Outpatient (BNVA) | payer MEDICARE, SELFPAY | PROVIDERS: PCP Internal Medicine; Visit Provider Neurological Surgery | DX: R29.818 Other symptoms and signs involving the nervous system (principal) | CPT/HCPCS: 99212 ==

== ENCOUNTER → 2024-12-27 10:58 | Outpatient (BNV) | payer MEDICARE, SELFPAY | PROVIDERS: PCP Internal Medicine; Visit Provider Radiology Diagnostic Radiology | DX: M48.061 Spinal stenosis, lumbar region without neurogenic claudication (principal) | CPT/HCPCS: 72158 ==

== ENCOUNTER 2024-12-27 11:08 | Outpatient (REF) | payer MEDICARE, SELFPAY ==
--- NOTE | ~2024-12-27 | MR_ITS ---
EXAMINATION: MR LUMBAR SPINE WITHOUT AND WITH CONTRAST CLINICAL INFORMATION: Symptoms and signs involving the nervous system neurogenic claudication. COMPARISON: None available. TECHNIQUE: MRI of the lumbar spine was obtained using routine sequences with and without contrast. Intravenous contrast: Gadolinium based (Gadavist) 6.0 mL without reported immediate complications. FINDINGS: Last rib-bearing vertebra labeled T12. Levoconvex curvature apex at L2-3. Multilevel marginal osteophyte formation and disc desiccation pronounced at L2-3 L5-S1 and to a lesser extent L3-4. Grade 1 retrolisthesis, L3-4 and L4-5 and L5-S1 levels. Bone marrow STIR signal within the vertebral bodies and the posterior elements of L2-3 and the posterior elements/L3-4 and L4-5 with the associated heterogeneous enhancement. There is enhancement in the cecal peripheral fashion in the central spinal canal involving the epidural/subdural compartment at L2-3 and L4-5 levels. There is laminectomies at L2-3, L3-4 and L4-5 and L5-S1. T12-L1: No compression upon neural elements. L1-2: Broad-based disc bulging. Facet joint and ligamentum flavum hypertrophy. Central spinal canal and bilateral neuroforamina stenosis encroaching the neural elements. L2-3: Broad-based disc bulging. Facet joint hypertrophy right ligamentum flavum flavum hypertrophy. Central spinal canal and right neuroforamina stenosis encroaching the neural elements. L3-4: Broad-based disc bulging. Facet joint and ligamentum flavum hypertrophy. CSF effacement of the thecal sac central spinal canal and bilateral neuroforamina stenosis compressing the neural elements. L4-5: Broad-based disc bulging. Facet joint hypertrophy. Central spinal canal stenosis and left neuroforamina stenosis compressing the neural elements. L5-S1: Left hemilaminectomy. Bilateral neuroforamina stenosis encroaching the L5 exiting nerve roots. Fatty atrophy of the lower lumbar muscles from L4-5 to sacrum. 32 mm diameter of the infrarenal distal abdominal aorta. Common bile duct measures 18 mm with an abrupt cut off at the duodenum junction. 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 Central spinal canal stenosis and bilateral neuroforamina stenosis at L3-4 compressing the neural elements on a degenerative basis. Left neuroforamina stenosis compressing the exiting nerve root at L4-5 on a degenerative basis 33 mm aneurysm, infrarenal/distal abdominal aorta. Electronically signed by: Kendell Lopez MD 12/27/2024 01:46 PM EST
--- OUTSIDE RECORDS SUMMARY | 2024-12-28 01:33 | XMS_ITS | Encounter Summary ---
Author Organization [facility] Address [address] [facility] [address] [place] [address] Phone Care Team Providers Care Automobile Service Station Mechanic Name Role Phone Prasad Claire MD Primary Care Provider [phone] Prasad Claire MD Unavailable [phone] PrAlan MD Unavailable Winston Restrepo MD Unavailable [phone] Chris Metz MD Unavailable Encounter Details Date Type Department Care Team (Late Contact Info) Description 01/20/2017 Procedure Pass [facility] Endoscopy Admitting Dept Virtual Department [address] [place] [address] Social History Tobacco Use Types Packs/Day Years [...] Upcoming Encounters Date Type Department Care Team ([facility] Contact Info) Description 01/17/2025 11:30 AM EST Office Visit [facility] [address] [place] [address] Chidi Levy DO 22 [place] [address] [email or web address] documented as of this encounter Visit Diagnoses Not on filedocumented in this encounter Additional Health Concerns Assessment Noted Time PHQ-2 Depression Total Score: 0 12/12/19 17 1:25 PM EDT documented as of this encounter Care Teams Automobile Service Station Mechanic Relationship Specialty Start Date End Date Prasad Claire MD 40 [place] [address] [email or web address] PCP - General 11/27/16 Prasad Claire MD 40 [place] [address] Insurance Assigned Provider 05/16/23 Alan Olsen MD [address] [place] [address] [place] [address] Neurosurgery 11/28/19 Winston Restrepo MD [address] [place] [address] Dr NGUYEN_[place]rological [place] [address] Neurosurgery 12/01/19 Chris Metz MD 9 [place] [address] Interventional Pain Management 12/01/19 documented as of this encounter Additional Source Comments The information contained in this document represents components of the legal health record. It is not the complete legal health record.[facility]
--- OUTSIDE RECORDS SUMMARY | 2024-12-28 01:33 | XMS_ITS | Encounter Summary ---
Author Organization [facility] Address [address] [facility] [facility] [address] [place] [address] Phone Care Team Providers Care Drilling Field Operator Name Role Phone Prasad Claire MD Primary Care Provider [phone] Prasad Claire MD Unavailable [phone] Alan Olsen MD Unavailable Winston Restrepo MD Unavailable [phone] Chris Metz MD Unavailable Encounter Details Date Type Department Care Team (Late st Contact Info) Description 11/23/2024 Orders Only [facility] Internal Medicine [address] [place] [address] Provider, MD [facility] [place] [phone] Social History Tobacco Use Types Packs/Day Years [...] 11:30 AM EST Office Visit [facility] [address] [place] [address] Chidi Levy DO [address] [place] [address] documented as of this encounter Procedures Procedure [...] documented as of this encounter Care Teams Drilling Field Operator Relationship Specialty Start Date End Date Prasad Claire MD 40 [place] [address] PCP - General 11/27/16 Prasad Claire MD 40 [place] [address] [email or web address] Insurance Assigned Provider 05/16/23 Alan Olsen MD [address] [place] [address] [place] [address] Neurosurgery 11/28/19 Winston Restrepo MD [address] [place] [address] Dr NGUYEN_[place]rological [place] [address] Neurosurgery 12/01/19 Chris Metz MD [address] [place] [address] Interventional Pain Management 12/01/19 documented as of this encounter Additional Source Comments The information contained in this document represents components of the legal health record. It is not the complete legal health record.[facility]
--- OUTSIDE RECORDS SUMMARY | 2024-12-28 01:34 | XMS_ITS | Encounter Summary ---
Author Organization [facility] Address [address] [facility] [address] [place] [address] Phone Care Team Providers Care Pit Crane Operator Name Role Phone Prasad Claire MD Primary Care Provider [phone] Prasad Claire MD Unavailable [phone] MeAlan MD Unavailable Winston Restrepo MD Unavailable [phone] Chris Metz MD Unavailable Encounter Details Date Type Department Care Team (Late st Contact Info) Description 09/18/2022 Procedure Pass [facility] Endoscopy Admitting Dept Virtual Department [address] [place] [address] Social History Tobacco Use Types Packs/Day Years [...] AM EST Office Visit [facility] [address] [place] [address] Chidi Levy DO 22 [place] [address] documented as of this encounter Visit Diagnoses Not on filedocumented in this encounter Additional Health Concerns Assessment Noted Time PHQ-2 Depression Total Score: 0 07/22/19 23 7:29 PM EDT documented as of this encounter Care Teams Pit Crane Operator Relationship Specialty Start Date End Date Prasad Claire MD 40 [place] [address] PCP - General 11/27/16 Prasad Claire MD 40 [place] [address] Insurance Assigned Provider 05/16/23 Alan Olsen MD [address] [place] [address] [place] [address] Neurosurgery 11/28/19 Winston Restrepo MD [address] [place] [address] Dr NGUYEN_Neurological [place] [address] Neurosurgery 12/01/19 Chris Metz MD [address] [place] [address] Interventional Pain Management 12/01/19 documented as of this encounter Additional Source Comments The information contained in this document represents components of the legal health record. It is not the complete legal health record.[facility]
--- OUTSIDE RECORDS SUMMARY | 2024-12-28 01:34 | XMS_ITS | Encounter Summary ---
Author Organization [facility] Address [address] [facility] [address] [place] [address] Phone Care Team Providers Care Metal Bed Assembler Name Role Phone Prasad Claire MD Primary Care Provider [phone] Prasad Claire MD Unavailable [phone] Alan Olsen MD Unavailable Winston Restrepo MD Unavailable [phone] Chris Metz MD Unavailable Encounter Details Date Type Department Care Team (Latest Contact Info) Description 10/13/2024 Ancillary Orders [facility] Internal Medicine [address] [place], [place] [phone] Shilpi Thornton PA-C 40 [place], [place] [phone] [email or web address] Bilateral hip pain (Primary Dx); [...] 11:30 AM EST Office Visit [facility] [address] [place] [address] Chidi Levy, DO [address] [place] [address] [email or web address] documented as of this encounter [...] clinician's provided indication for this examination in [facility]: Pain COMPARISON: XR HIP 2 VW LEFT [...] clinician's provided indication for this examination in [facility]:Pain COMPARISON: XR HIP 2 VW LEFT PLUS [...] documented as of this encounter Care Teams Metal Bed Assembler Relationship Specialty Start Date End Date Prasad Claire MD [address] [place] [address] [email or web address] PCP - General 11/27/16 Prasad Claire MD [address] [place] [address] [email or web address] Insurance Assigned Provider 05/16/23 Alan Olsen MD [address] [place] [address] [place] [address] Neurosurgery 11/28/19 Winston Restrepo MD [address] [place] [address] Dr NGUYEN_Neurological [place] [address] Neurosurgery 12/01/19 Chris Metz MD [address] [place] [address] Interventional Pain Management 12/01/19 documented as of this encounter Additional Source Comments The information contained in this document represents components of the legal health record. It is not the complete legal health record.[facility]
--- OUTSIDE RECORDS SUMMARY | 2024-12-28 01:35 | XMS_ITS | Clinical Summary ---
Author Organization [facility] Address [address] [employer] [facility] [address] [place] [address] Phone Care Team Providers Care Invoice Control Clerk Name Role Phone Prasad Radford MD Primary Care Provider [phone] Prasad Radford MD Unavailable [phone] Alan Olsen MD Unavailable Winston Restrepo MD Unavailable [phone] Chris Metz MD Unavailable Allergies No known active allergies Medications glucosamine HCl 750 mg Tab Take 1 tablet by mouth daily. Active Ca cit-D3-mag#[id number]-yqfk-ghpf- man-bor (CALTRATE 600+D) 600 mg calcium- 800 unit-50 mg Tab Take 1 tablet by mouth as directed. Once daily 5 days a week Active Medication-Free Text Tumeric Take 1 capsule by mouth once daily. Active coenzyme Q10 10 mg capsule Take 100 mg by mouth daily. 11/30/19 20 Active nzkxoso-cnwxnfsdhtwsx-gm ffeine (EXCEDRIN MIGRAINE) 250-250-65 mg per tablet Take 1 tablet by mouth every 6 (six) hours as needed for pain (specific location in comments). Active cyclobenzaprine (FLEXERIL) 5 MG tabletIndications:Acute bilateral low back pain with left-sided sciatica 1-2 tablets q 12 hours prn back spasms 30 tablet 11/06/19 24 Active omeprazole (PRILOSEC) 20 MG capsule TAKE 1 CAPSULE TWICE DAILY 180 capsule 3 01/26/20 24 Active celecoxib (CELEBREX) 200 MG capsuleIndications:Chron ic bilateral low back pain without sciatica,Primary osteoarthritis, unspecified site Take 1 capsule (200 mg total) by mouth 2 (two) times a day with meals. 180 capsule 3 02/10/19 25 Active hydrOXYzine HCL (ATARAX) 10 MG tabletIndications:Anxiet y Take 1 tablet (10 mg total) by mouth 3 (three) times a day as needed for anxiety. 10 tablet 05/07/19 25 Active losartan (COZAAR) 25 MG tabletIndications:Essent ial hypertension TAKE 1 TABLET DAILY 90 tablet 3 09/27/19 25 Active tiZANidine (ZANAFLEX) 2 MG tabletIndications:Chroni c bilateral low back pain without sciatica TAKE 1 TABLET(2 MG) BY MOUTH EVERY 8 HOURS NEEDED FOR MUSCLE SPASMS 30 tablet 10/06/19 25 Active pravastatin (PRAVACHOL) 80 MG tabletIndications:Pure hypercholesterolemia TAKE 1 TABLET DAILY 90 tablet 3 11/01/19 25 Active gabapentin (NEURONTIN) 300 MG capsuleIndications:Prima ry osteoarthritis involving multiple joints TAKE 1 CAPSULE 4 TIMES DAILY 360 capsule 3 11/26/19 25 Active oxyCODONE 5 MG immediate release tabletIndications:Bilate ral hip pain,Acute low back pain with sciatica, sciatica laterality unspecified, unspecified back pain laterality One pill every 8 hours prn pain Partial fill ok 84 tablet 11/29/19 25 Active predniSONE (DELTASONE) 20 MG tabletIndications:Acute low back pain with sciatica, sciatica laterality unspecified, unspecified back pain laterality 2 daily for 5 days 10 tablet 11/29/19 25 Active Active Problems Problem Noted Date Diagnosed Date [...] if symptoms return, would recommend referring to orthopedics/[facility] for further assessment. Hypertension [...] is due for repeat DXA scan at [facility] on 09/30/2024. I discussed this with her today and I asked the front staff to send the DXA scan request again to [facility] and to give the patient a copy just in case she does not hear from them she can contact them and bring the request herself. Also requested second zoledronic acid infusion at [facility] which should take place close to 10/26/2024. [...] This study has to be done at [facility]. Prior to the follow-up visit she [...] Encounters Date Type Department Care Team Description 12/12/2024 Telephone [facility] Internal Medicine [address] [place] [address] Prasad Radford MD Medication Refill 11/28/2024 3:00 PM EDT Office Visit [facility] Internal Medicine [address] [place] [address] Prasad Radford MD Routine general medical examination at a health care facility (Primary Dx); Bilateral hip pain; Acute low back pain with sciatica, sciatica laterality unspecified, unspecified back pain laterality; Chronic, continuous use of opioids; Vitamin B12 deficiency 11/25/2024 Refill [facility] Internal Medicine [address] [place] [address] Prasad Radford MD Medication Refill 11/23/2024 Orders Only [facility] Internal Medicine [address] [place] [address] Shanonn Nicholas MD 11/22/2024 Refill [facility] Internal Medicine [address] [place] [address] Prasad Radford MD Medication Refill 11/14/2024 Orders Only [facility] Medicine [address] [place] [address] Shannon Nicholas MD 11/14/2024 Telephone [facility] Spine Medicine [address] [place] [address] Presley Leavitt Appointment (11/15 Appointment Cancellation) 11/10/2024 10:08 AM EDT - 11/10/2024 11:59 PM EDT Hospital Encounter [facility] [address] [place] [address] Shilpi Thornton PA-C Discharge Disposition: Home or Self Care 11/10/2024 Telephone [facility] Internal Medicine [address] [place] [address] Evelina Rojas RN Results 11/03/2024 Telephone [facility] Internal Medicine [address] [place] [address] Prasad Radford MD referral 10/31/2024 2:00 PM EDT [address] [address] Chidi Levy DO Age-related osteoporosis without current pathological fracture (Primary Dx) 10/30/2024 Refill [facility] Internal Medicine [address] [place] [address] Prasad Radford MD Medication Refill 10/26/2024 Refill [facility] Internal Medicine [address] [place] [address] Prasad Radford MD Medication Refill 10/13/2024 12:27 PM EDT - 10/13/2024 11:59 PM EDT Hospital Encounter [facility], [address] [address] Shilpi Thornton PA-C Discharge Disposition: Home or Self Care 10/13/2024 11:20 AM EDT Office Visit [facility] Internal Medicine [address] [place] [address] Shilpi Thornton PA-C Bilateral hip pain (Primary Dx); Right sided sciatica 10/13/2024 Ancillary Orders [facility] Internal Medicine [address] [place] [address] Shilpi Thornton PA-C Bilateral hip pain (Primary Dx); Right sided sciatica 10/11/2024 Telephone [facility] Internal Medicine [address] [place] [address] Prasad Radford MD Leg Pain 10/04/2024 Refill [facility] Internal Medicine [address] [place] [address] Prasad Radford MD Medication Refill from Last [...] 11:30 AM EST Office Visit [facility] [address] [place] [address] [place] [address] Chidi Levy DO [address] [place] [address] [email or web address] Health Maintenance Due Date Last Done Comments COLOGUARD 1990 FIT TEST 1990 FOBT 1990 SIGMOIDOSCOPY 1990 VIRTUAL COLONOSCOPY 1990 COVID-19 VACCINE ( season) 2024 12/24/2022, 02/14/2021, 05/31/2020, Additional history exists BLOOD PRESSURE 05/29/2025 11/28/2024 DEPRESSION SCREENING 11/27/2025 11/27/2024 SMOKING Hx and SMOKELESS TOBACCO SCREENING 11/28/2025 11/28/2024 CREATININE LEVEL 12/16/2025 12/16/2024, , 10/14/2023, Additional history exists POTASSIUM LEVEL 12/16/2025 12/16/2024, 04/09, 10/14/2023, Additional history exists FOLLOW UP BONE DENSITY TESTING 11/11/2026 11/11/2024, 09/24/2023, 09/30/2022, Additional history exists COLONOSCOPY 09/19/2027 09/18/2022, 01/20/2017 COLORECTAL CANCER SCREENING 09/19/2027 LIPID PANEL 12/16/2029 12/16/2024, 04/09, 04/06/2023, Additional history exists Adult Td,Tdap Booster 11/03/2032 [...] on patient's age to complete this topic IPV VACCINES Aged Out No longer eligi ble based on patient's age to complete this topic MENINGOCOCCAL VACCINES (ACWY) Aged Out No longer eligible based on patient's age to complete this topic MENINGOCOCCAL VACCINES (B) Aged Out N o longer eligible based on patient's age to complete this topic Medical Devices Not on file Procedures Procedure Name Priority Date/Time Associated Diagnosis Comments URINE SEDIMENT Routine 12/16/2024 11:34 AM EST Benign essential hypertension CBC AND DIFFERENTIAL Routine 12/16/2024 11:34 AM EST Benign essential hypertension VITAMIN B12 Routine 12/16/2024 11:34 AM EST Vitamin B12 deficiency 25-OH VITAMIN D Routine 12/16/2024 11:34 AM EST Age-related osteoporosis without current pathological fracture HEMOGLOBIN A1C Routine 12/16/2024 11:34 AM EST Impaired fasting glucose URINALYSIS Routine 12/16/2024 11:34 AM EST Benign essential hypertension THYROID STIMULATING HORMONE (TSH) Routine 12/16/2024 11:34 AM EST Benign essential hypertension LIPID PANEL Routine 12/16/2024 11:34 AM EST Pure hypercholesterolemia CBC AND DIFFERENTIAL Routine 12/16/2024 11:34 AM EST Benign essential hypertension COMPREHENSIVE METABOLIC PANEL (CMP) Routine 12/16/2024 11:34 AM EST Benign essential hypertension Impaired fasting glucose HM MAMMOGRAPHY Routine 11/23/2024 7:50 AM EDT HM MAMMOGRAPHY Routine 11/11/2024 2:31 PM EDT HM DEXA SCAN Routine 11/11/2024 1:05 PM EDT US AORTA DUPLEX COMPLETE Routine 11/10/2024 10:46 AM EDT Infrarenal abdominal aortic aneurysm (AAA) without rupture XR HIPS 2+ VW EA BILAT PLUS PELVIS Routine 10/13/2024 12:50 PM EDT Bilateral hip pain ENDOSCOPY, COLON 09/18/2022 8:27 AM EDT HEPATITIS C ANTIBODY, QUALITATIVE Routine 09/23/2019 1:50 PM EDT Need for hepatitis C screening test from Last 3 Months or Most Recently Relevant to Health Maintenance Results * Urine Sediment (12/16/2024 11:34 AM EST) WBC 3-5 0 - 9 /hpf 12/16/2024 7:08 PM [facility] RBC 0-2 0 - 2 /hpf 12/16/2024 7:08 PM [facility] Urine (Urine, Voided) Non-Blood Collection / Unknown 12/16/2024 11:34 AM EST 12/16/2024 11:39 AM EST us Prasad Radford MD LAB URINE ORDERABLES Final Re sult [address] [address] * (ABNORMAL) Comprehensive Metabolic Panel (CMP) (12/16/2024 11:34 AM EST) Sodium 138 136 - 145 mmol/L 12/16/2024 6:04 PM [facility] Potassium 4.1 3.4 - 5.1 mmol/L 12/16/2024 6:04 PM [facility] Chloride 100 98 - 107 mmol/L 12/16/2024 6:04 PM [facility] CO2 25 20 - 31 mmol/L 12/16/2024 6:04 PM [facility] Anion Gap 13 3 - 17 mmol/L 12/16/2024 6:04 PM [facility] BUN 15 6 - 23 mg/dL 12/16/2024 6:04 PM [facility] Creatinine 1.00 0.50 - 1.00 mg/dL 12/16/2024 6:04 PM [facility] eGFR 57(L) >59 mL/min/1.7 3m2 12/16/2024 6:04 PM [facility] Comment:Estimated glomerular filtration rate calculated using the CKD-EPI refit equation. Glucose 94 70 - 99 mg/dL 12/16/2024 6:04 PM [facility] Calcium 10.2 8.5 - 10.5 mg/dL 12/16/2024 6:04 PM [facility] AST 20 <33 U/L 12/16/2024 6:04 PM [facility] ALT 17 <34 U/L 12/16/2024 6:04 PM [facility] Alkaline Phosphatase 48 40 - 130 U/L 12/16/2024 6:04 PM [facility] Bilirubin, Total 0.4 0.0 - 1.2 mg/dL 12/16/2024 6:04 PM [facility] Total Protein 7.2 6.4 - 8.3 g/dL 12/16/2024 6:04 PM [facility] Albumin 4.2 3.5 - 5.2 g/dL 12/16/2024 6:04 PM [facility] Globulin 3.0 1.9 - 4.1 g/dL 12/16/2024 6:04 PM [facility] Blood (Blood) Venipuncture / Unknown 12/16/2024 11:34 AM EST 12/16/2024 11:39 AM EST us Prasad Radford MD LAB BLOOD BKR ORDERABLES Coral ubcio Result [facility] [address] [place] [address] * (ABNORMAL) CBC and Differential (12/16/2024 11:34 AM EST) WBC 7.57 4.00 - 11.00 K/uL 12/16/2024 5:37 PM [facility] RBC 4.44 4.00 - 5.20 M/uL 12/16/2024 5:37 PM [facility] Hemoglobin 13.8 12.0 - 16.0 g/dL 12/16/2024 5:37 PM [facility] Hematocrit 41.6 36.0 - 46.0 % 12/16/2024 5:37 PM [facility] MCV 93.7 80.0 - 100.0 fL 12/16/2024 5:37 PM [facility] MCH 31.1(H) 27.0 - 31.0 pg 12/16/2024 5:37 PM [facility] MCHC 33.2 32.0 - 36.0 g/dL 12/16/2024 5:37 PM [facility] MPV 10.5 8.4 - 12.0 fL 12/16/2024 5:37 PM [facility] RDW-CV 14.6(H) 11.5 - 14.5 % 12/16/2024 5:37 PM [facility] PLT 246 150 - 450 K/uL 12/16/2024 5:37 PM [facility] Neutrophils 66.1 % 12/16/2024 5:37 PM [facility] Lymphocytes 20.9 % 12/16/2024 5:37 PM [facility] Monocytes 9.0 % 12/16/2024 5:37 PM [facility] Eosinophils 3.2 % 12/16/2024 5:37 PM [facility] Basophils 0.4 % 12/16/2024 5:37 PM [facility] Imm Grans 0.4 % 12/16/2024 5:37 PM [facility] NRBC 0.0 <=0.0 /100 WBCs 12/16/2024 5:37 PM [facility] Absolute Neutrophils 5.01 1.92 - 7.60 K/uL 12/16/2024 5:37 PM [facility] Absolute Lymphocytes 1.58 0.72 - 4.10 K/uL 12/16/2024 5:37 PM [facility] Absolute Monocytes 0.68 0.16 - 1.10 K/uL 12/16/2024 5:37 PM [facility] Absolute Eosinophils 0.24 0.00 - 0.50 K/uL 12/16/2024 5:37 PM [facility] Absolute Basophils 0.03 0.00 - 0.15 K/uL 12/16/2024 5:37 PM [facility] Absolute Imm Grans 0.03 0.00 - 0.09 K/uL 12/16/2024 5:37 PM [facility] Absolute NRBC 0.00 <=0.00 K cells/uL 12/16/2024 5:37 PM [facility] Absolute Neutrophils 5.01 1.92 - 7.60 K/uL 12/16/2024 5:37 PM [facility] Comment:Automated cell count . Manual ANC may differ if performed. Diff Type Auto 12/16/2024 5:37 PM [facility] Blood (Blood) Venipuncture / Unknown 12/16/2024 11:34 AM EST 12/16/2024 11:39 AM EST us Prasad Radford MD LAB BLOOD BKR ORDERABLES Coral l Result [address] [address] * (ABNORMAL) 25-OH Vitamin D (12/16/2024 11:34 AM EST) 25-OH Vitamin D, Total 73(H) 20 - 50 ng/mL 12/16/2024 6:14 PM [facility] Comment: Severe deficiency: <10 ng/mL Mild to moderate deficiency: 10-19 ng/mL Optimum levels: 20-50 ng/mL Increased risk of hypercalciuria: 51-80 ng/mL Possible toxicity: >80 ng/mL Blood (Blood) Venipuncture / Unknown 12/16/2024 11:34 AM EST 12/16/2024 11:39 AM EST us Prasad Radford MD LAB BLOOD BKR ORDERABLES Coral l Result [address] [address] * (ABNORMAL) Urinalysis (12/16/2024 11:34 AM EST) Color Yellow Yellow 12/16/2024 6:15 PM EST [facility] Clarity Clear Clear 12/16/2024 6:15 PM [facility] Glucose Negative Negative 12/16/2024 6:15 PM [facility] Bilirubin Urine Negative Negative 6:15 PM [facility] Ketone Urine Negative Negative 12/16/2024 6:15 PM [facility] Specific [place] 1.010 1.001 - 1.035 12/16/2024 6:15 PM [facility] Blood Negative Negative 12/16/2024 6:15 PM [facility] pH 7.0 5.0 - 8.0 12/16/2024 6:15 PM [facility] Protein Negative Negative 12/16/2024 6:15 PM [facility] Nitrites Negative Negative 12/16/2024 6:15 PM [facility] Leukocyte Esterase Trace(A) Negative 12/16/2024 6:15 PM [facility] Urobilinogen Negative Negative 12/16/2024 6:15 PM [facility] Urine (Urine, Voided) Non-Blood Collection / Unknown 12/16/2024 11:34 AM EST 12/16/2024 11:39 AM EST us Prasad Radford MD LAB URINE ORDERABLES Final Re sult Performing Organization Address [facility]/ZIP Co de Phone Number [address] [address] * Thyroid Stimulating Hormone (TSH) (12/16/2024 11:34 AM EST) TSH 1.40 0.40 - 5.90 uIU/mL 12/16/2024 6:04 PM [facility] Blood (Blood) Venipuncture / Unknown 12/16/2024 11:34 AM EST 12/16/2024 11:39 AM EST Prasad Radford MD LAB BLOOD BKR ORDERABLES Coral l Result Performing Organization Address [facility] Co de Phone Number [address] [address] * Hemoglobin A1c (12/16/2024 11:34 AM EST) Hemoglobin A1c 5.5 4.3 - 5.6 % 12/16/2024 6:32 PM [facility] Calculated Mean Blood Glucose 111 mg/dL 12/16/2024 6:32 PM [facility] Comment:There is no establis hed normal range for the Estimated Average Glucose (EAG). However, a HbA1c of 5.6% (upper limit of normal) represents an EAG of 114 mg/dL. The diagnostic HbA1c level for diabetes is greater than or equal to 6.5%, which represents an EAG greater than or equal to 140 mg/dL. Blood (Blood) Venipuncture / Unknown 12/16/2024 11:34 AM EST 12/16/2024 11:39 AM EST us Prasad Radford MD LAB BLOOD BKR ORDERABLES Coral l Result Performing Organization Address [facility] Co de Phone Number [address] [address] * Vitamin B12 (12/16/2024 11:34 AM EST) Vitamin B12 1,018 232 - 1,245 pg/mL 12/16/2024 6:13 PM [facility] Blood (Blood) Venipuncture / Unknown 12/16/2024 11:34 AM EST 12/16/2024 11:39 AM EST Prasad Radford MD LAB BLOOD BKR ORDERABLES Coral l Result Performing Organization Address [facility]/ZIP Co de Phone Number [address] [address] * (ABNORMAL) Lipid Panel (12/16/2024 11:34 AM EST) Cholesterol 188 <200 mg/dL 12/16/2024 6:04 PM [facility] HDL 58 >=40 mg/dL 12/16/2024 6:04 PM [facility] Calculated LDL 102 <130 mg/dL 12/16/2024 6:04 PM [facility] Comment:LDL is calculated us ing the Mata-NIH equation (CHRISTIAN Cardiol. 2019June 09;5(5):540-548). Non-HDL Cholesterol 130 mg/dL 12/16/2024 6:04 PM [facility] Comment:Guidelines suggest a non-HDL cholesterol goal 30 mg/dL higher than the patient-specific LDL cholesterol goal. Cardiac Risk Ratio 3.2 0.0 - 5.0 2024 6:04 PM [facility] Triglycerides 163(H) <=150 mg/dL 12/16/2024 6:04 PM [facility] Blood (Blood) Venipuncture / Unknown 12/16/2024 11:34 AM EST 12/16/2024 11:39 AM EST Prasad Radford MD LAB BLOOD BKR ORDERABLES Coral l Result [address] [address] * MAMMOGRAPHY FOR RESULT ENTRY ONLY (11/23/2024 7:50 AM EDT) Historical Provider HEALTH MAINTENANCE Final Result * HM MAMMOGRAPHY FOR RESULT ENTRY ONLY (11/11/2024 2:31 PM EDT) Historical Provider HEALTH MAINTENANCE Final Result * HM DEXA SCAN (11/11/2024 1:05 PM EDT) Historical Provider HEALTH MAINTENANCE Final Result * US Aorta [...] PA-C IMG XR PELVIS Final Result * ENDOSCOPY, COLON (09/18/2022 8:27 AM EDT) Narrative Transcriptions Chan Brown MD - 09/18/2022 8:27 AM EDT [facility] Patient Name: Adrienne Huerta Attending MD:: CHAN BROWN MD, Procedure Date: 09/18/2022 8:27 AM Date of : 1945 Age: 76 Admit Type: Outpatient Gender: Female Room: [place] [address] Referring MD: PRASAD RADFORD MD Exam Type: [...] monitored continuously. The Olympus adult variable colonoscope [id number] #[id number] was introduced through the anus and [...] 8:27 AM Procedure Code(s): --- Professional --- 01603, Colonoscopy, flexible; diagnostic, including collection of specimen(s) by brushing or washing, when performed (separateprocedure) --- Technical --- 81757, Colonoscopy, flexible; diagnostic, including collection of specimen(s) by brushing or washing, when performed (separateprocedure) Diagnosis Code(s): --- Professional --- Z12.11, Encounter for screening for malignantneoplasm of colon K57.30, Diverticulosis of large intestine without perforation or abscess without bleeding --- Technical --- Z12.11, Encounter for screening for malignantneoplasm of colon K57.30, Diverticulosis of large intestine without perforation or abscess without bleeding CPT copyright 2021 [employer]. All rights reserved. The codes documented in this report are preliminary and upon any commodity buyer reviewmay be revised to meet current compliance requirements. Procedure Date: 09/18/2022 8:27:[address] [place] [address] Prasad Radford MD GI PROCEDURE ORDERABLES Final Result * Hepatitis C antibody, qualitative (09/23/2019 1:50 PM EDT) HCV NON-REACTIV E NON-REACTI VE [facility] Blood 09/23/2019 1:50 PM EDT 09/23/2019 1:54 PM EDT Prasad Radford MD LAB BLOOD BKR ORDERABLES Coral l Result [facility] [address] [place] [address] from Last 3 Months or Most Recently Relevant to Health Maintenance Insurance MEDICARE PART A & B [employer] SUPPLEMENT MEDICARE PART A & B [facility] MEDEX SUPPLEMENT MEDICARE PART A & B [employer] MED[employer] SUPPLEMENT MEDICARE PART A & B [employer] SUPPLEMENT MEDICARE PART A & B [employer] SUPPLEMENT MEDICARE PART A & B [employer] SUPPLEMENT MEDICARE PART A & B [employer] SUPPLEMENT MEDICARE PART A & B [employer] SUPPLEMENT MEDICARE PART A & B [employer] MED[employer] SUPPLEMENT Advance Directives For more information, please contact: [phone] (9AM - 5PM [facility], Thursday-Thursday) Documents on File Type Date Recorded Patient Anatomical Embalmer Expl anation Healthcare Proxy 06/01/2024 [facility] Care Proxy Form scan 06/01/2024 Care Teams Invoice Control Clerk Relationship Specialty Start Date End Date Prasad Radford MD [address] [place] [address] PCP - General 11/27/16 Prasad Radford MD [address] [place] [address] [email or web address] Insurance Assigned Provider 05/16/23 Alan Olsen MD [address] [place] [address] [place] [address] Neurosurgery 11/28/19 Winston Restrepo MD [address] [place] [address] Dr NGUYEN_[place] [address] Neurosurgery 12/01/19 Chris Metz MD [address] [place] [address] Interventional Pain Management 12/01/19 Additional Source Comments The information contained in this document represents components of the legal health record. It is not the complete legal health record.[facility]
--- OUTSIDE RECORDS SUMMARY | 2024-12-28 01:35 | XMS_ITS | Encounter Summary ---
Author Organization [facility] Address [address] [facility] [address] [place] [address] Phone Care Team Providers Care Electrical Foreman Name Role Phone Prasad Claire MD Primary Care Provider [phone] Prasad Claire MD Unavailable [phone] WvAlan MD Unavailable Winston Restrepo MD Unavailable [phone] Chris Metz MD Unavailable Encounter Details Date Type Department Care Team (Latest Contact Info) Description 06/19/2020 Transcribe Orders Virtual Department [address] [place] [address] Lucia Garcia MD [address] [place], [place] [id number] [email or web address] Pre-procedure lab exam (Primary Dx) Social History [...] AM EST Office Visit [facility] [address] [place] [address] Chidi Levy DO [address] [place] [address] [email or web address] documented as of this encounter Visit Diagnoses Diagnosis Pre-procedure lab exam- Primary Pre-procedural laboratory examination documented in this encounter Additional Health Concerns Assessment Noted Time PHQ-2 Depression Total Score: 0 03/08/19 8:53 AM EST documented as of this encounter Care Teams Electrical Foreman Relationship Specialty Start Date End Date Prasad Claire MD [address] [place] [address] PCP - General 11/27/16 Prasad Claire MD [address] [place] [address] Insurance Assigned Provider 05/16/23 Alan Olsen MD [address] [place] [address] [place] [address] Neurosurgery 11/28/19 Winston Restrepo MD [address] [place] [address] Dr [place]rological [place] [address] Neurosurgery 12/01/19 Chris Metz MD [address] [place] [address] Interventional Pain Management 12/01/19 documented as of this encounter Additional Source Comments The information contained in this document represents components of the legal health record. It is not the complete legal health record.[facility]
--- OUTSIDE RECORDS SUMMARY | 2024-12-28 01:35 | XMS_ITS | Encounter Summary ---
Author Organization [facility] Address [address] [facility] [address] [place] [address] Phone Care Team Providers Care Kick Plate Installer Name Role Phone Prasad Claire MD Primary Care Provider [phone] Prasad Claire MD Unavailable [phone] ArAlan MD Unavailable Winston Restrepo MD Unavailable [phone] Chris Metz MD Unavailable Encounter Details Date Type Department Care Team (Late st Contact Info) Description 10/26/2023 Procedure Pass [facility], [address] [address] Social History Tobacco Use Types Packs/Day Years [...] 11:30 AM EST Office Visit [facility] [address] [place] [address] Chidi Levy DO [address] [place] [phone] [email or web address] documented as of this encounter Visit Diagnoses Not on filedocumented in this encounter Additional Health Concerns Assessment Noted Time PHQ-2 Depression Total Score: 0 10/20/19 24 10:07 AM EDT documented as of this encounter Care Teams Kick Plate Installer Relationship Specialty Start Date End Date Prasad Claire MD [address] [place] [address] [email or web address] PCP - General 11/27/16 Prasad Claire MD [address] [place], [place] [email or web address] Insurance Assigned Provider 05/16/23 Alan Olsen MD [address] [place] [address] Dr HOLLAND [address] [place] [address] Neurosurgery 11/28/19 Winston Restrepo MD [address] [place] [address] Dr NGUYEN_[place] [address] Neurosurgery 12/01/19 Chris Metz MD [address] [place] [address] Interventional Pain Management 12/01/19 documented as of this encounter Additional Source Comments The information contained in this document represents components of the legal health record. It is not the complete legal health record.[facility]
--- OUTSIDE RECORDS SUMMARY | 2024-12-28 01:35 | XMS_ITS | Encounter Summary ---
Author Organization [facility] Address [address] [facility] [address] [place] [address] Phone Care Team Providers Care Print Designer Name Role Phone Prasad Claire MD Primary Care Provider Prasad Claire MD Unavailable [phone] AlAlan MD Unavailable Winston Restrepo MD Unavailable [phone] Chris Metz MD Unavailable Encounter Details Date Type Department Care Team (Late st Contact Info) Description 11/10/2019 Procedure Pass [facility], [address] [address] Social History Tobacco Use Types Packs/Day Years [...] AM EST Office Visit [facility] [address] [place] [address] Chidi Levy DO [address] [place] [address] [email or web address] documented as of this encounter Visit Diagnoses Not on filedocumented in this encounter Additional Health Concerns Assessment Noted Time PHQ-2 Depression Total Score: 0 03/08/19 11:14 AM EST documented as of this encounter Care Teams Print Designer Relationship Specialty Start Date End Date Prasad Claire MD [address] [place] [address] [email or web address] PCP - General 11/27/16 Prasad Claire MD [address] [place] [address] [email or web address] Insurance Assigned Provider 05/16/23 Al, Alan Alvarez MD [address] [place] [address] [place] [address] Neurosurgery 11/28/19 Winston Restrepo MD [address] [place] [address] Dr NGUYEN_[place]rological [place] [address] Neurosurgery 12/01/19 Chris Metz MD [address] [place] [address] Interventional Pain Management 12/01/19 documented as of this encounter Additional Source Comments The information contained in this document represents components of the legal health record. It is not the complete legal health record.[facility]
--- OUTSIDE RECORDS SUMMARY | 2024-12-28 01:36 | XMS_ITS | Patient Health Record ---
Author Organization [facility] Address [address] [facility] [address] [place] [address] Care Team Providers Care Contact Representative Name Role Phone Prasad Claire MD Primary Care Provider Cheko Schmidt Unavailable [phone] Allergies Allergen (clinical drug ingredient) Drug/Non Drug [...] (682.7) Active confirmed Problem Pain in limb (77643028) Pain in Limb (729.5) Active confirmed Problem Paronychia (20088958) Paronychia (681.11) Active confirmed Plan Of Treatment Pending Test Test Name Order Date [id number] NAIL, 1-5 03/07/2013 09929- Debride <25 sq cm 11/24/2012 12495 I&D ABSCESS- SIMPLE,SINGLE 013 Insurance Providers Payer Name Payer Address Payer Phone Subscriber Number Group Number Insured Name Patient Relationship to Insured Coverage Start Date Coverage End Date [facility] 65 Medicare Preferred [address] [place] [address] [phone] [id number] Adrienne Huerta Self - patient is the insured Medical (General) History Medical History History ICD Code osteoarthritis peptic ulcer disease back, hip, knee pain osteoporosis hematuria chicken pox Surgical History Surgery Date(Month/Year) knee surgery, left back surgery-lower 02/1983 gall bladder 04/1968
--- OUTSIDE RECORDS SUMMARY | 2024-12-28 01:36 | XMS_ITS | Encounter Summary ---
Author Organization [facility] Address [address] [facility] [address] [place] [address] Phone Care Team Providers Care Skidder Lever Operator Name Role Phone Prasad Claire MD Primary Care Provider [phone] Prasad Claire MD Unavailable [phone] PaAlan MD Unavailable Winston Restrepo MD Unavailable [phone] Chris Metz MD Unavailable Encounter Details Date Type Department Care Team (Latest Contact Info) Description 06/22/2020 Transcribe Orders Virtual Department [address] [place] [address] Lucia Garcia MD [address] [place], [place] [phone] [email or web address] Pre-procedure lab exam (Primary Dx) Social History [...] AM EST Office Visit [facility] [address] [place] [address] [place] [address] documented as of this encounter Results * COVID-19 PCR Order (07/13/2020 11:05 AM EDT) COVID-19 Comment [id number] [facility] COVID Testing Status In-house testing being performed [facility] 07/13/2020 11:0 5 AM EDT 07/13/2020 1:20 PM EDT us Lucia Garcia MD LAB GENERAL ORDERABLES Final Re sult [facility] [address] [place] [address] documented in this encounter Visit Diagnoses Diagnosis Pre-procedure lab exam- Primary Pre-procedural laboratory examination documented in this encounter Additional Health Concerns Assessment Noted Time PHQ-2 Depression Total Score: 0 03/08/19 8:53 AM EST documented as of this encounter Care Teams Skidder Lever Operator Relationship Specialty Start Date End Date Prasad Claire MD [address] [place] [address] PCP - General 11/27/16 Prasad Claire MD [address] [place] [address] Insurance Assigned Provider 05/16/23 Alan Olsen MD [address] [place] [address] [place] [address] Neurosurgery 11/28/19 Winston Restrepo MD [address] [place] [address] Dr NGUYEN_Neurological [place] [address] Neurosurgery 12/01/19 Chris Metz MD [address] [place] [place] [address] Interventional Pain Management 12/01/19 documented as of this encounter Additional Source Comments The information contained in this document represents components of the legal health record. It is not the complete legal health record.[facility]
== END 2024-12-27 11:09 | disposition home or self-care (01) ==
LOC: HO.MRI 11:08
PROVIDERS: PCP Internal Medicine; Visit Provider Neurological Surgery
DX: R29.818 Other symptoms and signs involving the nervous system (principal); M51.26 Other intervertebral disc displacement, lumbar region; Z98.890 Other specified postprocedural states
CPT/HCPCS: 72158; A9585

== ENCOUNTER 2025-01-04 13:21 | Outpatient (AMB) | payer MEDICARE, SELFPAY ==
--- NOTE | 2025-01-04 13:25 | A.SPINEOV_ITS ---
Intake Visit Reasons: MRI f/u Intake Note: Ms. Huerta is here today to F/u on her MRI. Results. Fuel Injection Servicer Required: No Allergies No Known Allergies Allergy (Verified 02/25/24 10:53) Assessment & Plan Assessment & Plan (1) Neurogenic claudication: Code(s): R29.818 - Other symptoms and signs involving the nervous system Category: Medical Plan Dear colleague, On 01/04/2025, I saw for follow-up brandon Huerta to review a new MRI of the lumbar spine. As you know, she developed severe left leg pain with walking and standing that improves when she sits down. The pain is excruciating despite oxycodone. She sleeps 8 hours during the day to get some relief. She is at her wits end. 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 The previous herniated disc that was seen behind the L4 vertebral body and for which he underwent a lumbar microdiskectomy is gone. On exam, she is supported by her son due to the pain. She limps with her left leg. No motor or sensory deficits. This patient is suffering from unbearable unilateral neurogenic claudication for which narcotics are not helpful. I reviewed the MRI of the lumbar spine in detail with the patient and her son and pointed out where the nerve compressions are responsible for her pain. I offered her a left L3-4 and L4-5 decompression to treat her symptoms. She is scheduled for 01/24/2025. I spent 30 minutes in his consult to review imaging and discussing plan of care. Daniel Tai MD, PhD Spine Fellowship Trained Neurosurgeon Director, [facility] Coding Level of Care Code Est Pt Level 4 (09729) Diagnoses Neurogenic claudication R29.818
--- OUTSIDE RECORDS SUMMARY | 2025-01-04 16:30 | XMS_ITS | Encounter Summary ---
Author Organization [facility] Address [address] [facility] [address] [place] [address] Phone Care Team Providers Care Clinical Trial Assistant Name Role Phone Prasad Claire MD Primary Care Provider [phone] Prasad Claire MD Unavailable [phone] ArAlan MD Unavailable Winston Restrepo MD Unavailable [phone] Chris Metz MD Unavailable Encounter Details Date Type Department Care Team (Latest Contact Info) Description 06/22/2020 Transcribe Orders Virtual Department [address] [place] [address] Lucia Garcia MD [address] [place], [place] [id number] [email or web address] Pre-procedure lab exam (Primary Dx) Social History [...] as of this encounter Plan of Treatment Not on file documented as of this encounter Results * COVID-19 PCR Order (07/13/2020 11:05 AM EDT) COVID-19 Comment [id number] [facility] COVID Testing Status In-house testing being performed [facility] 07/13/2020 11:0 5 AM EDT 07/13/2020 1:20 PM EDT us Lucia Garcia MD LAB GENERAL ORDERABLES Final Re sult [address] [address] documented in this encounter Visit Diagnoses Diagnosis Pre-procedure lab exam- Primary Pre-procedural laboratory examination documented in this encounter Additional Health Concerns Assessment Noted Time PHQ-2 Depression Total Score: 0 03/08/19 21 8:53 AM EST documented as of this encounter Care Teams Clinical Trial Assistant Relationship Specialty Start Date End Date Prasad Claire MD [address] [place] [address] [email or web address] PCP - General 11/27/16 Prasad Claire MD [address] [place] [address] [email or web address] Insurance Assigned Provider 05/16/23 Alan Olsen MD [address] [place] [address] [place] [address] Neurosurgery 11/28/19 Winston Restrepo MD [address] [place] [address] Dr NGUYEN_Neurological [place] [address] Neurosurgery 12/01/19 Chris Metz MD [address] [place] [address] Interventional Pain Management 12/01/19 documented as of this encounter Additional Source Comments The information contained in this document represents components of the legal health record. It is not the complete legal health record.[facility]
--- OUTSIDE RECORDS SUMMARY | 2025-01-04 16:30 | XMS_ITS | Encounter Summary ---
Author Organization [facility] Address [address] [facility] [address] [place] [address] Phone Care Team Providers Care Electric Power Superintendent Name Role Phone Prasad Claire MD Primary Care Provider [phone] Prasad Claire MD Unavailable [phone] PaAlan MD Unavailable Winston Restrepo MD Unavailable [phone] Chris Metz MD Unavailable Encounter Details Date Type Department Care Team (Late st Contact Info) Description 11/10/2019 Procedure Pass [facility], [address] [address] Social History Tobacco Use Types Packs/Day Years [...] documented in this encounter Plan of Treatment Not on file documented as of this encounter Visit Diagnoses Not on filedocumented in this encounter Additional Health Concerns Assessment Noted Time PHQ-2 Depression Total Score: 0 03/08/19 11:14 AM EST documented as of this encounter Care Teams Electric Power Superintendent Relationship Specialty Start Date End Date Prasad Claire MD [address] [place] [address] PCP - General 11/27/16 Prasad Claire MD [address] [place] [address] Insurance Assigned Provider 05/16/23 PaAlan MD [address] [place] [address] [place] [address] Neurosurgery 11/28/19 Winston Restrepo MD [address] [place] [address] Dr HOLLAND [address]_[place] [address] Neurosurgery 12/01/19 Chris Metz MD [address] [place] [address] Interventional Pain Management 12/01/19 documented as of this encounter Additional Source Comments The information contained in this document represents components of the legal health record. It is not the complete legal health record.[facility]
--- OUTSIDE RECORDS SUMMARY | 2025-01-04 16:30 | XMS_ITS | Encounter Summary ---
Author Organization [facility] Address [address] [facility] [address] [place] [address] Phone Care Team Providers Care Nanotechnology Engineering Technologist Name Role Phone Prasad Claire MD Primary Care Provider [phone] Prasad Claire MD Unavailable [phone] WyAlan MD Unavailable Winston Restrepo MD Unavailable [phone] Chris Metz MD Unavailable Encounter Details Date Type Department Care Team (Late st Contact Info) Description 10/26/2023 Procedure Pass [facility], [address] [address] Social History Tobacco Use Types Packs/Day Years [...] documented as of this encounter Care Teams Nanotechnology Engineering Technologist Relationship Specialty Start Date End Date Prasad Claire MD [address] [place] [address] PCP - General 11/27/16 Prasad Claire MD [address] [place] [address] Insurance Assigned Provider 05/16/23 Alan Olsen MD [address] [place] [address] [place] [address] Neurosurgery 11/28/19 Winston Restrepo MD [address] [place] [address] Dr NGUYEN_Neurological [place] [address] Neurosurgery 12/01/19 Chris Metz MD [address] [place] [address] Interventional Pain Management 12/01/19 documented as of this encounter Additional Source Comments The information contained in this document represents components of the legal health record. It is not the complete legal health record.[facility]
--- OUTSIDE RECORDS SUMMARY | 2025-01-04 16:30 | XMS_ITS | Encounter Summary ---
Author Organization [facility] Address [address] [facility] [address] [place] [address] Phone Care Team Providers Care Industrial Gas Fitter Helper Name Role Phone Prasad Claire MD Primary Care Provider [phone] Prasad Claire MD Unavailable [phone] TxAlan MD Unavailable Winston Restrepo MD Unavailable [phone] Chris Metz MD Unavailable Encounter Details Date Type Department Care Team (Late st Contact Info) Description 01/20/2017 Procedure Pass [facility] Admitting Dept Virtual Department [address] [place] [address] Social History Tobacco Use Types Packs/Day Years [...] documented as of this encounter Care Teams Industrial Gas Fitter Helper Relationship Specialty Start Date End Date Prasad Claire MD [address] [place] [address] PCP - General 11/27/16 Prasad Claire MD [address] [place] [address] Insurance Assigned Provider 05/16/23 Alan Olsen MD [address] [place] [address] [place] [address] Neurosurgery 11/28/19 Winston Restrepo MD [address] [place] [address] Dr HOLLAND 503_[place]rological [place] [address] Neurosurgery 12/01/19 Chris Metz MD [address] [place] [address] Interventional Pain Management 12/01/19 documented as of this encounter Additional Source Comments The information contained in this document represents components of the legal health record. It is not the complete legal health record.[facility]
--- OUTSIDE RECORDS SUMMARY | 2025-01-04 16:30 | XMS_ITS | Clinical Summary ---
Author Organization [facility]ly [facility] Address [address] [facility] [address] [place] [address] Phone Care Team Providers Care Campus President Name Role Phone Prasad Radford MD Primary Care Provider [phone] Prasad Radford MD Unavailable [phone] Alan Olsen MD Unavailable Winston Restrepo MD Unavailable [phone] Chris Metz MD Unavailable Allergies No known active allergies Medications glucosamine HCl 750 mg Tab Take 1 tablet by mouth daily. Active Ca cit-D3-mag#28-opty-nyuf -man-bor (CALTRATE 600+D) 600 mg calcium- 800 unit-50 mg Tab Take 1 tablet by mouth as directed. Once daily 5 days a week Active Medication-Free Text Tumeric Take 1 capsule by mouth once daily. Active coenzyme Q10 10 mg capsule Take 100 mg by mouth daily. 11/30/19 20 Active olssniz-jywnjukfiumws-y affeine (EXCEDRIN MIGRAINE) 250-250-65 mg per tablet Take [...] 01/26/20 24 Active celecoxib (CELEBREX) 200 MG capsuleIndications:[employer]iller dez bilateral low back pain without sciatica,Primary osteoarthritis, unspecified site Take 1 capsule (200 mg total) by mouth 2 (two) times a day with meals. 180 capsule 3 02/10/19 25 Active hydrOXYzine HCL (ATARAX) 10 MG tabletIndications:Anxie ty Take 1 tablet (10 mg total) by mouth 3 (three) times a day as needed for anxiety. 10 tablet 05/07/19 25 Active losartan (COZAAR) 25 MG tabletIndications:Essen tial hypertension TAKE 1 TABLET DAILY 90 tablet 3 09/27/19 25 Active tiZANidine (ZANAFLEX) 2 MG tabletIndications:Chron ic bilateral low back pain without sciatica TAKE 1 TABLET(2 MG) BY MOUTH EVERY 8 HOURS NEEDED FOR MUSCLE SPASMS 30 tablet 10/06/19 25 Active pravastatin (PRAVACHOL) 80 MG tabletIndications:Pure hypercholesterolemia TAKE 1 TABLET DAILY 90 tablet 3 11/01/19 25 Active gabapentin (NEURONTIN) 300 MG capsuleIndications:Prim ruthie osteoarthritis involving multiple joints TAKE 1 CAPSULE 4 TIMES DAILY 360 capsule 3 11/26/19 25 Active predniSONE (DELTASONE) 20 MG tabletIndications:Acute low back pain with sciatica, sciatica laterality unspecified, unspecified back pain laterality 2 daily for 5 days 10 tablet 11/29/19 25 Active oxyCODONE 5 MG immediate release tabletIndications:Bilat eral hip pain,Acute low back pain with sciatica, sciatica laterality unspecified, unspecified back pain laterality One pill every 8 hours prn pain Partial fill ok 84 tablet 12/29/19 25 Active oxyCODONE 5 MG immediate release tabletIndications:Bilat eral hip pain,Acute low back pain with sciatica, sciatica laterality unspecified, unspecified back pain laterality One pill every 8 hours prn pain Partial fill ok 84 tablet 11/29/19 25 025 Disconti nued(Reo rder) Active Problems Problem Noted Date Diagnosed Date [...] if symptoms return, would recommend referring to orthopedics/[facility] for further assessment. Hypertension [...] is due for repeat DXA scan at [facility] on 09/30/2024. I discussed this with her today and I asked the front staff to send the DXA scan request again to [facility] and to give the patient a copy just in case she does not hear from them she can contact them and bring the request herself. Also requested second zoledronic acid infusion at [facility] which should take place close to 10/26/2024. [...] This study has to be done at [facility]. Prior to the follow-up visit she needs [...] Encounters Date Type Department Care Team Description 12/28/2024 Refill [facility] [address] [facility] [place] [place] [address] Prasad Radford MD Medication Refill 12/28/2024 Orders Only [facility] [address] [facility] [place] [address] ProviderShannon MD 12/12/2024 Telephone [facility] [address] [facility] [place] [address] Prasad Radford MD Medication Refill 11/28/2024 3:00 PM EDT Office Visit [facility] [address] [facility] [place] [address] Prasad Radford MD Routine general medical examination at a health care facility (Primary Dx); Bilateral hip pain; Acute low back pain with sciatica, sciatica laterality unspecified, unspecified back pain laterality; Chronic, continuous use of opioids; Vitamin B12 deficiency 11/25/2024 Refill [facility] [address] [facility] [place] [address] Prasad Radford MD Medication Refill 11/23/2024 Orders Only [facility] [address] [facility] [place] [address] Shannon Nicholas MD 11/22/2024 Refill [facility] [address] [facility] [place] [address] Prasad Radford MD Medication Refill 11/14/2024 Orders Only [facility] [address] [place] [address] ProviderShannon MD 11/14/2024 Telephone [facility] [address] [place] [address] Presley Leavitt Appointment (11/15 Appointment Cancellation) 11/10/2024 10:08 AM EDT - 11/10/2024 11:59 PM EDT Hospital Encounter [address] [address] Shilpi Thornton PA-C Discharge Disposition: Home or Self Care 11/10/2024 Telephone [facility] [address] [place] [address] Evelina Rojas RN Results 11/03/2024 Telephone [facility] [address] [place] [address] Prasad Radford MD referral 10/31/2024 2:00 PM EDT Infusion [address] [address] Chidi Levy DO Age-related osteoporosis without current pathological fracture (Primary Dx) 10/30/2024 Refill [facility] [address] [place] [address] Prasad Radford MD Medication Refill 10/26/2024 Refill [facility] [address] [place] [address] Prasad Radford MD Medication Refill 10/13/2024 12:27 PM EDT - 10/13/2024 11:59 PM EDT Hospital Encounter [address] [address] Shilpi Thornton PA-C Discharge Disposition: Home or Self Care 10/13/2024 11:20 AM EDT Office Visit [facility] [address] [place] [address] Shilpi Thornton PA-C Bilateral hip pain (Primary Dx); Right sided sciatica 10/13/2024 Ancillary Orders [facility] [address] [facility] [place] [address] Shilpi Thornton PA-C Bilateral hip pain (Primary Dx); Right sided sciatica 10/11/2024 Telephone [facility] [address] [place] [address] Prasad Radford MD Leg Pain 10/04/2024 Refill [facility] [address] [facility] [place] [address] Prasad Radford MD Medication Refill from Last [...] 11/28/2024 3:11 PM EDT Plan of Treatment Health Maintenance Due Date Last Done Comments [...] Procedure Name Priority Date/Time Associated Diagnosis Comments OUTSIDE IMAGING Routine 12/28/2024 7:06 AM EST URINE SEDIMENT Routine 12/16/2024 11:34 AM EST [...] Recently Relevant to Health Maintenance Results * Outside Imaging Report Only (12/28/2024 7:06 AM EST) us Historical Provider IMG XR CHEST Final Res ult * Urine Sediment (12/16/2024 11:34 AM EST) WBC 3-5 0 - 9 /hpf 12/16/2024 7:08 PM EST [facility] RBC 0-2 0 - 2 /hpf 12/16/2024 7:08 PM EST [facility] Urine (Urine, Voided) Non-Blood Collection / Unknown 12/16/2024 11:34 AM EST 12/16/2024 11:39 AM EST us Prasad Radford MD LAB URINE ORDERABLES Final Re sult [facility] [address] [place] [address] * (ABNORMAL) Comprehensive Metabolic Panel (CMP) (12/16/2024 11:34 AM EST) Pathologist [facility] Sodium 138 136 - 145 mmol/L 12/16/2024 6:04 PM [facility] Potassium 4.1 3.4 - 5.1 mmol/L 12/16/2024 6:04 PM [facility] Chloride 100 98 - 107 mmol/L 12/16/2024 6:04 PM [facility] CO2 25 20 - 31 mmol/L 12/16/2024 6:04 PM [facility] Anion Gap 13 3 - 17 mmol/L 12/16/2024 6:04 PM [facility] BUN 15 6 - 23 mg/dL 12/16/2024 6:04 PM [facility] Creatinine 1.00 0.50 - 1.00 mg/dL 12/16/2024 6:04 PM [facility] eGFR 57(L) >59 mL/min/1.7 3m2 12/16/2024 6:04 PM [facility] Comment:Estimated glomerular filtration rate calculated using the CKD-EPI refit equation. Glucose 94 70 - 99 mg/dL 12/16/2024 6:04 PM [facility] Calcium 10.2 8.5 - 10.5 mg/dL 12/16/2024 6:04 PM [facility] AST 20 <33 U/L 12/16/2024 6:04 PM [facility] ALT 17 <34 U/L 12/16/2024 6:04 PM [facility] Alkaline Phosphatase 48 40 - 130 U/L 12/16/2024 6:04 PM [facility] Bilirubin, Total 0.4 0.0 - 1.2 mg/dL 12/16/2024 6:04 PM [facility] Total Protein 7.2 6.4 - 8.3 g/dL 12/16/2024 6:04 PM [facility] Albumin 4.2 3.5 - 5.2 g/dL 12/16/2024 6:04 PM [facility] Globulin 3.0 1.9 - 4.1 g/dL 12/16/2024 6:04 PM [facility] Blood (Blood) Venipuncture / Unknown 12/16/2024 11:34 AM EST 12/16/2024 11:39 AM EST us Prasad Radford MD LAB BLOOD BKR ORDERABLES Coral fortunato Result [facility] [address] [place] [address] * (ABNORMAL) CBC and Differential (12/16/2024 11:34 AM EST) WBC 7.57 4.00 - 11.00 K/uL 12/16/2024 5:37 PM [facility] RBC 4.44 4.00 - 5.20 M/uL 12/16/2024 5:37 PM [facility] Hemoglobin 13.8 12.0 - 16.0 g/dL 12/16/2024 5:37 PM [facility] Hematocrit 41.6 36.0 - 46.0 % 12/16/2024 5:37 PM [facility] MCV 93.7 80.0 - 100.0 fL 12/16/2024 5:37 PM [facility] MCH 31.1(H) 27.0 - 31.0 pg 12/16/2024 5:37 PM [facility] MCHC 33.2 32.0 - 36.0 g/dL 12/16/2024 5:37 PM [facility] MPV 10.5 8.4 - 12.0 fL 12/16/2024 5:37 PM [facility] RDW-CV 14.6(H) 11.5 - 14.5 % 12/16/2024 5:37 PM [facility] PLT 246 150 - 450 K/uL 12/16/2024 5:37 PM [facility] Neutrophils 66.1 % 12/16/2024 5:37 PM [facility] Lymphocytes 20.9 % 12/16/2024 5:37 PM [facility] Monocytes 9.0 % 12/16/2024 5:37 PM [facility] Eosinophils 3.2 % 12/16/2024 5:37 PM [facility] Basophils 0.4 % 12/16/2024 5:37 PM [facility] Imm Grans 0.4 % 12/16/2024 5:37 PM [facility] NRBC 0.0 <=0.0 /100 WBCs 12/16/2024 5:37 PM [facility] Absolute Neutrophils 5.01 1.92 - 7.60 K/uL 12/16/2024 5:37 PM [facility] Absolute Lymphocytes 1.58 0.72 - 4.10 K/uL 12/16/2024 5:37 PM [facility] Absolute Monocytes 0.68 0.16 - 1.10 K/uL 12/16/2024 5:37 PM [facility] Absolute Eosinophils 0.24 0.00 - 0.50 K/uL 12/16/2024 5:37 PM [facility] Absolute Basophils 0.03 0.00 - 0.15 K/uL 12/16/2024 5:37 PM [facility] Absolute Imm Grans 0.03 0.00 - 0.09 K/uL 12/16/2024 5:37 PM [facility] Absolute NRBC 0.00 <=0.00 K cells/uL 12/16/2024 5:37 PM [facility] Absolute Neutrophils 5.01 1.92 - 7.60 K/uL 12/16/2024 5:37 PM [facility] Comment:Automated cell count . Manual ANC may differ if performed. Diff Type Auto 12/16/2024 5:37 PM [facility] Blood (Blood) Venipuncture / Unknown 12/16/2024 11:34 AM EST 12/16/2024 11:39 AM EST us Prasad Radford MD LAB BLOOD BKR ORDERABLES Coral bucio Result [facility] [address] [place] [address] * (ABNORMAL) 25-OH Vitamin D (12/16/2024 11:34 AM EST) [facility] 25-OH Vitamin D, Total 73(H) 20 - 50 ng/mL 12/16/2024 6:14 PM [facility] Comment: Severe deficiency: <10 ng/mL Mild to moderate deficiency: 10-19 ng/mL Optimum levels: 20-50 ng/mL Increased risk of hypercalciuria: 51-80 ng/mL Possible toxicity: >80 ng/mL Blood (Blood) Venipuncture / Unknown 12/16/2024 11:34 AM EST 12/16/2024 11:39 AM EST us Prasad Radford MD LAB BLOOD BKR ORDERABLES Coral l Result [address] [address] * (ABNORMAL) Urinalysis (12/16/2024 11:34 AM EST) Color Yellow Yellow 12/16/2024 6:15 PM EST [facility] Clarity Clear Clear 12/16/2024 6:15 PM [facility] Glucose Negative Negative 12/16/2024 6:15 PM [facility] Bilirubin Urine Negative Negative 6:15 PM [facility] Ketone Urine Negative Negative 12/16/2024 6:15 PM [facility] Specific Weare 1.010 1.001 - 1.035 12/16/2024 6:15 PM EST [facility] Blood Negative Negative 12/16/2024 6:15 PM EST [facility] pH 7.0 5.0 - 8.0 12/16/2024 6:15 PM [facility] Protein Negative Negative 12/16/2024 6:15 PM [facility] Nitrites Negative Negative 12/16/2024 6:15 PM [facility] Leukocyte Esterase Trace(A) Negative 12/16/2024 6:15 PM [facility] Urobilinogen Negative Negative 12/16/2024 6:15 PM [facility] Urine (Urine, Voided) Non-Blood Collection / Unknown 12/16/2024 11:34 AM EST 12/16/2024 11:39 AM EST us Prasad Radford MD LAB URINE ORDERABLES Final Re sult [address] [address] * Thyroid Stimulating Hormone (TSH) (12/16/2024 11:34 AM EST) TSH 1.40 0.40 - 5.90 uIU/mL 12/16/2024 6:04 PM [facility] Blood (Blood) Venipuncture / Unknown 12/16/2024 11:34 AM EST 12/16/2024 11:39 AM EST Prasad Radford MD LAB BLOOD BKR ORDERABLES Coral l Result Performing Organization Address [facility] Co de Phone Number [address] [address] * Hemoglobin A1c (12/16/2024 11:34 AM EST) Pathologist [facility] Hemoglobin A1c 5.5 4.3 - 5.6 % 12/16/2024 6:32 PM [facility] Calculated Mean Blood Glucose 111 mg/dL 12/16/2024 6:32 PM [facility] Comment:There is no establis [facility] normal range for the Estimated Average Glucose [...] ORDERABLES Coral l Result Performing Organization Address [facility] Co de Phone Number [address] [address] * Vitamin B12 (12/16/2024 11:34 AM EST) Vitamin B12 1,018 232 - 1,245 pg/mL 12/16/2024 6:13 PM [facility] Blood (Blood) Venipuncture / Unknown 12/16/2024 11:34 AM EST 12/16/2024 11:39 AM EST us Prasad Radford MD LAB BLOOD BKR ORDERABLES Coral l Result Performing Organization Address City/[facility]/ZIP Co de Phone Number [address] [address] * (ABNORMAL) Lipid Panel (12/16/2024 11:34 AM EST) Cholesterol 188 <200 mg/dL 12/16/2024 6:04 PM [facility] HDL 58 >=40 mg/dL 12/16/2024 6:04 PM [facility] Calculated LDL 102 <130 mg/dL 12/16/2024 6:04 PM [facility] Comment:LDL is calculated us ing the Mata-NIH equation (CHRISTIAN Cardiol. 2019June 09;5(5):540-548). Non-HDL Cholesterol 130 mg/dL 12/16/2024 6:04 PM [facility] Comment:Guidelines suggest a non-HDL cholesterol goal 30 mg/dL higher than the patient-specific LDL cholesterol goal. Cardiac Risk Ratio 3.2 0.0 - 5.0 2024 6:04 PM [facility] Triglycerides 163(H) <=150 mg/dL 12/16/2024 6:04 PM [facility] Blood (Blood) Venipuncture / Unknown 12/16/2024 11:34 AM EST 12/16/2024 11:39 AM EST us Prasad Radford MD LAB BLOOD BKR ORDERABLES Coral l Result Performing Organization Address City/[facility]/ZIP Co de Phone Number [address] [address] * HM MAMMOGRAPHY FOR RESULT ENTRY ONLY [...] Brown MD - 09/18/2022 8:27 AM EDT [facility] Patient Name: Adrienne Kaurcorey Attending MD:: CHAN BROWN MD, Procedure Date: 09/18/2022 8:27 AM Date of : 1945 Age: 76 Admit Type: Outpatient Gender: Female Room: [place] [address] Referring MD: PRASAD RADFORD MD Exam Type: [...] monitored continuously. The Olympus adult variable colonoscope [id number] #6 was introduced through the anus and [...] 8:27 AM Procedure Code(s): --- Professional --- 73633, Colonoscopy, flexible; diagnostic, including collection of specimen(s) by brushing or washing, when performed (separateprocedure) --- Technical --- 64524, Colonoscopy, flexible; diagnostic, including collection of specimen(s) by brushing or washing, when performed (separateprocedure) Diagnosis Code(s): --- Professional --- Z12.11, Encounter for screening for malignantneoplasm of colon K57.30, Diverticulosis of large intestine without perforation or abscess without bleeding --- Technical --- Z12.11, Encounter for screening for malignantneoplasm of colon K57.30, Diverticulosis of large intestine without perforation or abscess without bleeding CPT copyright 2021 [employer]. All rights reserved. The codes documented in this report are preliminary and upon national sales director reviewmay be revised to meet current compliance requirements. Procedure Date: 09/18/2022 8:27:[address] [place] [address] Prasad Radford MD GI PROCEDURE ORDERABLES Final Result * Hepatitis C antibody, qualitative (09/23/2019 1:50 PM EDT) HCV NON-REACTIV E NON-REACTI VE [facility] Blood 09/23/2019 1:50 PM EDT 09/23/2019 1:54 PM EDT Prasad Radford MD LAB BLOOD BKR ORDERABLES Coral l Result [address] [address] from Last 3 Months or Most Recently Relevant to Health Maintenance Insurance MEDICARE PART A & B BLUE CROSS MEDEX SUPPLEMENT MEDICARE PART A & B [employer] CROSS MEDEX SUPPLEMENT MEDICARE PART A & B Member Subscriber Plan / Payer ( fective 2010-Present) Name:Adrienne Huerta Member ID:[id number] Relation to Subscriber:Self Name:Adrienne Huerta Subscriber ID:[id number] Payer ID:[id number] Group ID:Not on file Type:Medicare Address: [employer] [address] [employer] CROSS MEDEX SUPPLEMENT MEDICARE PART A & B [employer] CROSS MEDEX SUPPLEMENT MEDICARE PART A & B [employer] MEDEX SUPPLEMENT MEDICARE PART A & B [employer] MEDEX SUPPLEMENT MEDICARE PART A & B [facility] MEDEX SUPPLEMENT MEDICARE PART A & B [employer] MEDEX SUPPLEMENT MEDICARE PART A & B [employer] MEDEX SUPPLEMENT Advance Directives For more information, please contact: [phone] (9AM - 5PM [facility], Thursday-Thursday) Documents on File Type Date Recorded Patient [employer] Healthcare Proxy 06/01/2024 [facility] Proxy Form scan 06/01/2024 Care Teams Campus President Relationship Specialty Start Date End Date Prasad Radford MD [address] [place] [address] [email or web address] PCP - General 11/27/16 Prasad Radford MD [address] [place] [address] [email or web address] Insurance Assigned Provider 05/16/23 Alan Olsen MD [address] [place] [address] [place] [address] Neurosurgery 11/28/19 Winston Restrepo MD [address] [place] [address] Dr NGUYEN_[place] [address] Neurosurgery 12/01/19 Chris Metz MD [address] [place] [address] Interventional Pain Management 12/01/19 Additional Source Comments The information contained in this document represents components of the legal health record. It is not the complete legal health record.[facility]
--- OUTSIDE RECORDS SUMMARY | 2025-01-04 16:30 | XMS_ITS | Encounter Summary ---
Author Organization [facility] Address [address] [facility] [address] [place] [address] Phone Care Team Providers Care Life Manager Name Role Phone Prasad Claire MD Primary Care Provider [phone] Prasad Claire MD Unavailable [phone] Alan Olsen MD Unavailable Winston Restrepo MD Unavailable [phone] Chris Metz MD Unavailable Encounter Details Date Type Department Care Team (Late st Contact Info) Description 12/28/2024 Orders Only [facility] Internal Medicine [address] [place] [address] Provider, MD Shannon [facility] [place] [phone] Social History Tobacco Use Types Packs/Day Years [...] on file documented as of this encounter Procedures Procedure Name Priority Date/Time Associated Diagnosis Comments OUTSIDE IMAGING Routine 12/28/2024 7:06 AM EST documented in this encounter Results * Outside Imaging Report Only (12/28/2024 7:06 AM EST) us Historical Provider IMMarie XR CHEST Final Res ult documented in this encounter Visit Diagnoses Not on filedocumented in this encounter Additional Health Concerns Assessment Noted Time PHQ-2 Depression Total Score: 1 11/28/19 25 10:06 PM EDT documented as of this encounter Care Teams Life Manager Relationship Specialty Start Date End Date Prasad Claire MD [address] [place] [address] PCP - General 11/27/16 Prasad Claire MD [address] [place] [address] [email or web address] Insurance Assigned Provider 05/16/23 Raúl, Alan Alvarez MD [address] [place] [address] [place] [address] Neurosurgery 11/28/19 Winston Restrepo MD [address] [place] [address] Dr NGUYEN_[place]rological [place] [address] Neurosurgery 12/01/19 Chris Metz MD [address] [place] [address] Interventional Pain Management 12/01/19 documented as of this encounter Additional Source Comments The information contained in this document represents components of the legal health record. It is not the complete legal health record.[facility]
--- OUTSIDE RECORDS SUMMARY | 2025-01-04 16:30 | XMS_ITS | Encounter Summary ---
Author Organization [facility] Address [address] [facility] [address] [place] [address] Phone Care Team Providers Care Bunch Breaker Machine Operator Name Role Phone Prasad Claire MD Primary Care Provider [phone] Prasad Claire MD Unavailable [phone] Alan Olsen MD Unavailable Winston Restrepo MD Unavailable [phone] Chris Metz MD Unavailable Encounter Details Date Type Department Care Team (Latest Contact Info) Description 10/13/2024 Ancillary Orders [facility] Internal Medicine [address] [place], [place] [phone] Shilpi Thornton PA-C [address] [place], [place] [id number] [email or web address] Bilateral hip pain (Primary Dx); Right sided [...] documented as of this encounter Care Teams Bunch Breaker Machine Operator Relationship Specialty Start Date End Date Prasad Claire MD [address] [place] [address] [email or web address] PCP - General 11/27/16 Prasad Claire MD [address] [place] [address] [email or web address] Insurance Assigned Provider 05/16/23 Alan Olsen MD [address] [place] [address] [place] [address] Neurosurgery 11/28/19 Winston Restrepo MD [address] [place] [address] Dr NGUYEN_[place]urological [place] [address] Neurosurgery 12/01/19 Chris Metz MD [address] [place] [address] Interventional Pain Management 12/01/19 documented as of this encounter Additional Source Comments The information contained in this document represents components of the legal health record. It is not the complete legal health record.[facility]
--- OUTSIDE RECORDS SUMMARY | 2025-01-04 16:30 | XMS_ITS | Encounter Summary ---
Author Organization [facility] Address [address] [employer] [facility] [address] [place] [address] Phone Care Team Providers Care Optical Lathe Operator Name Role Phone Prasad Claire MD Primary Care Provider [phone] Prasad Claire MD Unavailable [phone] OrAlan MD Unavailable Winston Restrepo MD Unavailable [phone] Chris Metz MD Unavailable Encounter Details Date Type Department Care Team (Latest Contact Info) Description 06/19/2020 Transcribe Orders Virtual Department 30 [place] [address] Lucia Garcia MD [address] [place], [place] [id number] [email or web address] Pre-procedure lab exam (Primary Dx) Social History [...] documented as of this encounter Care Teams Optical Lathe Operator Relationship Specialty Start Date End Date Prasad Claire MD [address] [place] [address] PCP - General 11/27/16 Prasad Claire MD [address] [place] [address] Insurance Assigned Provider 05/16/23 OrAlan MD [address] [place] [address] [place] [address] Neurosurgery 11/28/19 iWnston Restrepo MD [address] [place] [address] Dr HOLLAND 503_[place] [address] Neurosurgery 12/01/19 Chris Metz MD [address] [place] [address] Interventional Pain Management 12/01/19 documented as of this encounter Additional Source Comments The information contained in this document represents components of the legal health record. It is not the complete legal health record.[facility]
--- OUTSIDE RECORDS SUMMARY | 2025-01-04 16:30 | XMS_ITS | Encounter Summary ---
Author Organization [facility] Address [address] [facility] [address] [place] [address] Phone Care Team Providers Care Telegraphic Instrument Supervisor Name Role Phone Prasad Claire MD Primary Care Provider [phone] Prasad Claire MD Unavailable [phone] NhAlan MD Unavailable Winston Restrepo MD Unavailable [phone] Chris Metz MD Unavailable Encounter Details Date Type Department Care Team (Late st Contact Info) Description 09/18/2022 Procedure Pass [facility] Endoscopy Admitting Dept Virtual Department [address] [place] [address] Social History Tobacco Use Types Packs/Day Years [...] documented as of this encounter Care Teams Telegraphic Instrument Supervisor Relationship Specialty Start Date End Date Prasad Claire MD 40 [place] [address] PCP - General 11/27/16 Prasad Claire MD 40 [place] [address] Insurance Assigned Provider 05/16/23 Nh, Alan Alvarez MD [address] [place] [address] [place] [address] Neurosurgery 11/28/19 Winston Restrepo MD [address] [place] [address] Dr NGUYEN_[place]rological [place] [address] Neurosurgery 12/01/19 Chris Metz MD [address] [place] [address] Interventional Pain Management 12/01/19 documented as of this encounter Additional Source Comments The information contained in this document represents components of the legal health record. It is not the complete legal health record.[facility]
== END 2025-01-04 14:01 | disposition home or self-care (01) ==
LOC: HO.HNS 13:22
PROVIDERS: PCP Internal Medicine; Visit Provider Neurological Surgery
DX: R29.818 Other symptoms and signs involving the nervous system (principal)
CPT/HCPCS: 99214

== ENCOUNTER → 2025-01-04 13:21 | Outpatient (BNVA) | payer MEDICARE, SELFPAY | PROVIDERS: PCP Internal Medicine; Visit Provider Neurological Surgery | DX: R29.818 Other symptoms and signs involving the nervous system (principal) | CPT/HCPCS: 99212 ==

== ENCOUNTER 2025-01-24 08:14 | Day surgery (SDC) | payer MEDICARE, SELFPAY ==
--- OUTSIDE RECORDS SUMMARY | 2025-01-09 17:43 | XMS_ITS | Encounter Summary ---
Author Organization [facility] Address [address] [employer] [facility] [address] [place] [address] Phone Care Team Providers Care Cottage Master Name Role Phone Prasad Claire MD Primary Care Provider [phone] Prasad Claire MD Unavailable [phone] OkAlan MD Unavailable Winston Restrepo MD Unavailable [phone] Chris Metz MD Unavailable Encounter Details Date Type Department Care Team (Late st Contact Info) Description 10/26/2023 Procedure Pass [facility], [address] [address] Social History Tobacco Use Types Packs/Day Years [...] documented as of this encounter Care Teams Cottage Master Relationship Specialty Start Date End Date Prasad Claire MD [address] [place] [address] PCP - General 11/27/16 Prasad Claire MD [address] [place] [address] Insurance Assigned Provider 05/16/23 Alan Olsen MD [address] [place] [address] [place] [address] Neurosurgery 11/28/19 Winston Restrepo MD [address] [place] [address] Dr NGUYEN_[place]rological [place] [address] Neurosurgery 12/01/19 Chris Metz MD 9 [place] [address] Interventional Pain Management 12/01/19 documented as of this encounter Additional Source Comments The information contained in this document represents components of the legal health record. It is not the complete legal health record.[facility]
--- OUTSIDE RECORDS SUMMARY | 2025-01-09 17:43 | XMS_ITS | Encounter Summary ---
Author Organization [facility] Address [address] [employer] [facility] [address] [place] [address] Phone Care Team Providers Care Gore Stitcher Name Role Phone Prasad Claire MD Primary Care Provider [phone] Prasad Claire MD Unavailable [phone] NmAlan MD Unavailable Winston Restrepo MD Unavailable [phone] Chris Metz MD Unavailable Encounter Details Date Type Department Care Team (Latest Contact Info) Description 06/19/2020 Transcribe Orders Virtual Department 30 [place] [address] Lucia Garcia MD [address] [place], [place] [id number] [email or web address] Pre-procedure lab exam (Primary Dx) Social History [...] documented as of this encounter Care Teams Gore Stitcher Relationship Specialty Start Date End Date Prasad Claire MD 40 [place] [address] PCP - General 11/27/16 Prasad Claire MD 40 [place] [address] Insurance Assigned Provider 05/16/23 NmAlan MD [address] [place] [address] [place] [address] Neurosurgery 11/28/19 Winston Restrepo MD [address] [place] [address] Dr HOLLAND 503_[place]rological [place] [address] Neurosurgery 12/01/19 Chris Metz MD [address] [place] [address] Interventional Pain Management 12/01/19 documented as of this encounter Additional Source Comments The information contained in this document represents components of the legal health record. It is not the complete legal health record.[facility]
--- OUTSIDE RECORDS SUMMARY | 2025-01-09 17:43 | XMS_ITS | Clinical Summary ---
Author Organization [facility] Address [address] [employer] [address] [place] [address] Phone Care Team Providers Care Facs Teacher Name Role Phone Prasad Radford MD Primary Care Provider [phone] Prasad Radford MD Unavailable [phone] Alan Olsen MD Unavailable Winston Restrepo MD Unavailable [phone] Chris Metz MD Unavailable Allergies No known active allergies Medications glucosamine HCl 750 mg Tab Take 1 tablet by mouth daily. Active Ca cit-D3-mag#25-kkqm-cqkw -man-bor (CALTRATE 600+D) 600 mg calcium- 800 unit-50 mg Tab Take 1 tablet by mouth as directed. Once daily 5 days a week Active Medication-Free Text Tumeric Take 1 capsule by mouth once daily. Active coenzyme Q10 10 mg capsule Take 100 mg by mouth daily. 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 Hypertension [...] is due for repeat DXA scan at [facility] on 09/30/2024. I discussed this with her today and I asked the front staff to send the DXA scan request again to [facility] and to give the patient a copy just in case she does not hear from them she can contact them and bring the request herself. Also requested second zoledronic acid infusion at [facility] which should take place close to [...] This study has to be done at [facility]. Prior to the follow-up visit she [...] Type Department Care Team Description 12/28/2024 Refill [facility] Internal [facility] [address] [facility] [place] [address] Prasad Radford MD Medication Refill 12/28/2024 Orders Only [facility] [address] [facility] [place] [address] ProviderShannon MD 12/12/2024 Telephone [facility] [address] [facility] [place] [address] Prasad Radford MD Medication Refill 11/28/2024 3:00 PM EDT Office Visit [facility] [address] [facility] [place] [address] Prasad Radford MD Routine general medical examination at a health care facility (Primary Dx); Bilateral hip pain; Acute low back pain with sciatica, sciatica laterality unspecified, unspecified back pain laterality; Chronic, continuous use of opioids; Vitamin B12 deficiency 11/25/2024 Refill [facility] [address] [facility] [place] [address] Prasad Radford MD Medication Refill 11/23/2024 Orders Only [facility] 40 [facility] [place] [address] Shannon Nicholas MD 11/22/2024 Refill [facility] 40 [facility] [place] [address] Prasad Radford MD Medication Refill 11/14/2024 Orders Only [facility] Medicine [address] [place] [address] ProviderShannon MD 11/14/2024 Telephone [facility] Spine Medicine [address] [place] [address] Presley Leavitt Appointment (11/15 Appointment Cancellation) 11/10/2024 10:08 AM EDT - 11/10/2024 11:59 PM EDT Hospital Encounter [address] [address] Shilpi Thornton PA-C Discharge Disposition: Home or Self Care 11/10/2024 Telephone [facility] 40 [place] [address] Evelina Rojas RN Results 11/03/2024 Telephone [facility] 40 [place] [address] Prasad Radford MD referral 10/31/2024 2:00 PM EDT Infusion [address] [address] Chidi Levy DO Age-related osteoporosis without current pathological fracture (Primary Dx) 10/30/2024 Refill [facility] 40 [place] [address] Prasad Radford MD Medication Refill 10/26/2024 Refill [facility] 40 [place] [address] Prasad Radford MD Medication Refill 10/13/2024 12:27 PM EDT - 10/13/2024 11:59 PM EDT Hospital Encounter [address] [address] Shilpi Thornton PA-C Discharge Disposition: Home or Self Care 10/13/2024 11:20 AM EDT Office Visit [facility] [address] [place] [address] Shilpi Thornton PA-C Bilateral hip pain (Primary Dx); Right sided sciatica 10/13/2024 Ancillary Orders [facility] [address] [address] Shilpi Thornton PA-C Bilateral hip pain (Primary Dx); Right sided sciatica 10/11/2024 Telephone [facility] [address] [place] [place] [address] Prasad Radford MD Leg Pain from Last 3 Months Immunizations Immunization Administration [...] Imaging Report Only (12/28/2024 7:06 AM EST) Historical Provider IMMarie XR CHEST Final Res ult * Urine Sediment (12/16/2024 11:34 AM EST) WBC 3-5 0 - 9 /hpf 12/16/2024 7:08 PM [facility] RBC 0-2 0 - 2 /hpf 12/16/2024 7:08 PM [facility] Urine (Urine, Voided) Non-Blood Collection / Unknown 12/16/2024 11:34 AM EST 12/16/2024 11:39 AM EST Prasad Radford MD LAB URINE ORDERABLES Final Re sult [facility] [address] [place] [address] * (ABNORMAL) Comprehensive Metabolic Panel (CMP) (12/16/2024 11:34 AM EST) Sodium 138 136 - 145 mmol/L 12/16/2024 6:04 PM [facility] Potassium 4.1 3.4 - 5.1 mmol/L 12/16/2024 6:04 PM [facility] Chloride 100 98 - 107 mmol/L 12/16/2024 6:04 PM [facility] CO2 25 20 - 31 mmol/L 12/16/2024 6:04 PM [facility] Anion Gap 13 3 - 17 mmol/L 12/16/2024 6:04 PM [facility] BUN 15 6 - 23 mg/dL 12/16/2024 6:04 PM [facility] Creatinine 1.00 0.50 - 1.00 mg/dL 12/16/2024 6:04 PM [facility] eGFR 57(L) >59 mL/min/1.7 3m2 12/16/2024 6:04 PM [facility] Comment:Estimated glomerular filtration rate calculated using the CKD-EPI refit equation. Glucose 94 70 - 99 mg/dL 12/16/2024 6:04 PM [facility] Calcium 10.2 8.5 - 10.5 mg/dL 12/16/2024 6:04 PM [facility] AST 20 <33 U/L 12/16/2024 6:04 PM [facility] ALT 17 <34 U/L 12/16/2024 6:04 PM [facility] Alkaline Phosphatase 48 40 - 130 U/L 12/16/2024 6:04 PM [facility] Bilirubin, Total 0.4 0.0 - 1.2 mg/dL 12/16/2024 6:04 PM [facility] Total Protein 7.2 6.4 - 8.3 g/dL 12/16/2024 6:04 PM [facility] Albumin 4.2 3.5 - 5.2 g/dL 12/16/2024 6:04 PM [facility] Globulin 3.0 1.9 - 4.1 g/dL 12/16/2024 6:04 PM [facility] Blood (Blood) Venipuncture / Unknown 12/16/2024 11:34 AM EST 12/16/2024 11:39 AM EST us Prasad Radford MD LAB BLOOD BKR ORDERABLES Coral bucio Result [facility] [address] [place] [address] * (ABNORMAL) CBC and Differential (12/16/2024 11:34 AM EST) WBC 7.57 4.00 - 11.00 K/uL 12/16/2024 5:37 PM [facility] RBC 4.44 4.00 - 5.20 M/uL 12/16/2024 5:37 PM [facility] Hemoglobin 13.8 12.0 - 16.0 g/dL 12/16/2024 5:37 PM [facility] Hematocrit 41.6 36.0 - 46.0 % 12/16/2024 5:37 PM [facility] MCV 93.7 80.0 - 100.0 fL 12/16/2024 5:37 PM [facility] MCH 31.1(H) 27.0 - 31.0 pg 12/16/2024 5:37 PM [facility] MCHC 33.2 32.0 - 36.0 g/dL 12/16/2024 5:37 PM [facility] MPV 10.5 8.4 - 12.0 fL 12/16/2024 5:37 PM [facility] RDW-CV 14.6(H) 11.5 - 14.5 % 12/16/2024 5:37 PM [facility] PLT 246 150 - 450 K/uL 12/16/2024 5:37 PM [facility] Neutrophils 66.1 % 12/16/2024 5:37 PM [facility] Lymphocytes 20.9 % 12/16/2024 5:37 PM [facility] Monocytes 9.0 % 12/16/2024 5:37 PM [facility] Eosinophils 3.2 % 12/16/2024 5:37 PM [facility] Basophils 0.4 % 12/16/2024 5:37 PM [facility] Imm Grans 0.4 % 12/16/2024 5:37 PM [facility] NRBC 0.0 <=0.0 /100 WBCs 12/16/2024 5:37 PM [facility] Absolute Neutrophils 5.01 1.92 - 7.60 K/uL 12/16/2024 5:37 PM [facility] Absolute Lymphocytes 1.58 0.72 - 4.10 K/uL 12/16/2024 5:37 PM [facility] Absolute Monocytes 0.68 0.16 - 1.10 K/uL 12/16/2024 5:37 PM [facility] Absolute Eosinophils 0.24 0.00 - 0.50 K/uL 12/16/2024 5:37 PM [facility] Absolute Basophils 0.03 0.00 - 0.15 K/uL 12/16/2024 5:37 PM [facility] Absolute Imm Grans 0.03 0.00 - 0.09 K/uL 12/16/2024 5:37 PM [facility] Absolute NRBC 0.00 <=0.00 K cells/uL 12/16/2024 5:37 PM [facility] Absolute Neutrophils 5.01 1.92 - 7.60 K/uL 12/16/2024 5:37 PM [facility] Comment:Automated cell count . Manual ANC may differ if performed. Diff Type Auto 12/16/2024 5:37 PM [facility] Blood (Blood) Venipuncture / Unknown 12/16/2024 11:34 AM EST 12/16/2024 11:39 AM EST us Prasad Radford MD LAB BLOOD BKR ORDERABLES Coral l Result [address] [address] * (ABNORMAL) 25-OH Vitamin D (12/16/2024 11:34 AM EST) 25-OH Vitamin D, Total 73(H) 20 - 50 ng/mL 12/16/2024 6:14 PM [facility] Comment: Severe deficiency: <10 ng/mL Mild to moderate deficiency: 10-19 ng/mL Optimum levels: 20-50 ng/mL Increased risk of hypercalciuria: 51-80 ng/mL Possible toxicity: >80 ng/mL Blood (Blood) Venipuncture / Unknown 12/16/2024 11:34 AM EST 12/16/2024 11:39 AM EST us Prasad Radford MD LAB BLOOD BKR ORDERABLES Coral l Result [address] [address] * (ABNORMAL) Urinalysis (12/16/2024 11:34 AM EST) Color Yellow Yellow 12/16/2024 6:15 PM EST [facility] Clarity Clear Clear 12/16/2024 6:15 PM EST [facility] Glucose Negative Negative 12/16/2024 6:15 PM [facility] Bilirubin Urine Negative Negative 6:15 PM EST [facility] Ketone Urine Negative Negative 12/16/2024 6:15 PM EST [facility] Specific [place] 1.010 1.001 - 1.035 12/16/2024 6:15 PM EST [facility] Blood Negative Negative 12/16/2024 6:15 PM [facility] pH 7.0 5.0 - 8.0 12/16/2024 6:15 PM EST [facility] Protein Negative Negative 12/16/2024 6:15 PM [facility] Nitrites Negative Negative 12/16/2024 6:15 PM [facility] Leukocyte Esterase Trace(A) Negative 12/16/2024 6:15 PM [facility] Urobilinogen Negative Negative 12/16/2024 6:15 PM [facility] Urine (Urine, Voided) Non-Blood Collection / Unknown 12/16/2024 11:34 AM EST 12/16/2024 11:39 AM EST us Prasad Radford MD LAB URINE ORDERABLES Final Re sult [address] [address] * Thyroid Stimulating Hormone (TSH) (12/16/2024 11:34 AM EST) Pathologist [facility] TSH 1.40 0.40 - 5.90 uIU/mL 12/16/2024 6:04 PM [facility] Blood (Blood) Venipuncture / Unknown 12/16/2024 11:34 AM EST 12/16/2024 11:39 AM EST Prasad Radford MD LAB BLOOD BKR ORDERABLES Coral l Result Performing Organization Address [facility] Co de Phone Number [address] [address] * Hemoglobin A1c (12/16/2024 11:34 AM EST) [facility] Hemoglobin A1c 5.5 4.3 - 5.6 % 12/16/2024 6:32 PM [facility] Calculated Mean Blood Glucose 111 mg/dL 12/16/2024 6:32 PM [facility] Comment:There is no [facility] normal range for the Estimated Average Glucose [...] l Result Performing Organization Address [facility] Co de Phone Number [address] [address] * Vitamin B12 (12/16/2024 11:34 AM EST) [facility] Vitamin B12 1,018 232 - 1,245 pg/mL 12/16/2024 6:13 PM [facility] Blood (Blood) Venipuncture / Unknown 12/16/2024 11:34 AM EST 12/16/2024 11:39 AM EST Prasad Radford MD LAB BLOOD BKR ORDERABLES Coral l Result Performing Organization Address [facility] Co de Phone Number [address] [address] * (ABNORMAL) Lipid Panel (12/16/2024 11:34 AM EST) Cholesterol 188 <200 mg/dL 12/16/2024 6:04 PM [facility] HDL 58 >=40 mg/dL 12/16/2024 6:04 PM [facility] Calculated LDL 102 <130 mg/dL 12/16/2024 6:04 PM [facility] Comment:LDL is calculated us ing the Mata-NIH equation (CHRISTIAN Cardiol. 2019June 09;5(5):540-548). Non-HDL Cholesterol 130 mg/dL 12/16/2024 6:04 PM [facility] Comment:Guidelines suggest a non-HDL cholesterol goal 30 mg/dL higher than the patient-specific LDL cholesterol goal. Cardiac Risk Ratio 3.2 0.0 - 5.0 2024 6:04 PM [facility] Triglycerides 163(H) <=150 mg/dL 12/16/2024 6:04 PM [facility] Blood (Blood) Venipuncture / Unknown 12/16/2024 11:34 AM EST 12/16/2024 11:39 AM EST Prasad Radford MD LAB BLOOD BKR ORDERABLES Coral l Result Performing Organization Address City/[facility]/ZIP Co de Phone Number [address] [address] * HM MAMMOGRAPHY FOR RESULT ENTRY ONLY [...] Partially imaged infrarenal abdominal aortic aneurysm. Shilpi STILSE-Ruby IMG XR PELVIS Final Result * ENDOSCOPY, COLON (09/18/2022 8:27 AM EDT) Narrative Transcriptions Chan Brown MD - 09/18/2022 8:27 AM EDT [facility] Patient Name: Adrienne Huerta Attending MD:: CHAN BROWN MD, Procedure Date: 09/18/2022 8:27 AM Date of : 1945 Age: 76 Admit Type: Outpatient Gender: Female Room: [place] [address] Referring MD: PRASAD RADFORD MD Exam Type: [...] monitored continuously. The Olympus adult variable colonoscope [id number] #6 was introduced through the anus and [...] 8:27 AM Procedure Code(s): --- Professional --- 93809, Colonoscopy, flexible; diagnostic, including collection of specimen(s) by brushing or washing, when performed (separateprocedure) --- Technical --- 36604, Colonoscopy, flexible; diagnostic, including collection of specimen(s) by brushing or washing, when performed (separateprocedure) Diagnosis Code(s): --- Professional --- Z12.11, Encounter for screening for malignantneoplasm of colon K57.30, Diverticulosis of large intestine without perforation or abscess without bleeding --- Technical --- Z12.11, Encounter for screening for malignantneoplasm of colon K57.30, Diverticulosis of large intestine without perforation or abscess without bleeding CPT copyright 2021 [employer]. All rights reserved. The codes documented in this report are preliminary and upon invoice coder reviewmay be revised to meet current compliance requirements. Procedure Date: 09/18/2022 8:27:06 AM [address] [place] [address] Prasad Radford MD GI PROCEDURE ORDERABLES Final Result * Hepatitis C antibody, qualitative (09/23/2019 1:50 PM EDT) HCV NON-REACTIV E NON-REACTI VE [facility] Blood 09/23/2019 1:50 PM EDT 09/23/2019 1:54 PM EDT Prasad Radford MD LAB BLOOD BKR ORDERABLES Coral l Result [facility] [address] [place] [address] from Last 3 Months or Most Recently Relevant to Health Maintenance Insurance MEDICARE PART A & B [employer] SUPPLEMENT MEDICARE PART A & B [employer] MEDEX SUPPLEMENT MEDICARE PART A & B [employer] SUPPLEMENT MEDICARE PART A & B [employer] MEDEX SUPPLEMENT MEDICARE PART A & B [employer] MEDEX SUPPLEMENT MEDICARE PART A & B [employer] MEDEX SUPPLEMENT MEDICARE PART A & B [employer] MEDEX SUPPLEMENT MEDICARE PART A & B [employer] MEDEX SUPPLEMENT MEDICARE PART A & B [employer] MED[employer] SUPPLEMENT Advance Directives For more information, please contact: [phone] (9AM - 5PM [facility], Thursday-Thursday) Documents on File Type Date Recorded 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 Health Care Proxy Form scan 06/01/2024 Care Teams Facs Teacher Relationship Specialty Start Date End Date Prasad Radford MD [address] [place] [address] [email or web address] PCP - General 11/27/16 Prasad Radford MD [address] [place] [address] [email or web address] Insurance Assigned Provider 05/16/23 Alan Olsen MD [address] [place] [address] [place] [address] Neurosurgery 11/28/19 Winston Restrepo MD [address] [place] [address] Dr NGUYEN_[place] [address] Neurosurgery 12/01/19 Chris Metz MD [address] [place] [address] Interventional Pain Management 12/01/19 Additional Source Comments The information contained in this document represents components of the legal health record. It is not the complete legal health record.[facility]
--- OUTSIDE RECORDS SUMMARY | 2025-01-09 17:43 | XMS_ITS | Encounter Summary ---
Author Organization [facility] Address [address] [employer] [facility] [address] [place] [address] Phone Care Team Providers Care Egg Worker Name Role Phone Prasad Claire MD Primary Care Provider [phone] Prasad Claire MD Unavailable [phone] AzAlan MD Unavailable Winston Restrepo MD Unavailable [phone] Chris Metz MD Unavailable Encounter Details Date Type Department Care Team (Late st Contact Info) Description 01/20/2017 Procedure Pass [facility] Endoscopy Admitting Dept Virtual Department [address] [place] [address] Social History Tobacco Use Types Packs/Day Years [...] documented as of this encounter Care Teams Egg Worker Relationship Specialty Start Date End Date Prasad Claire MD [address] [place] [address] PCP - General 11/27/16 Prasad Claire MD [address] [place] [address] Insurance Assigned Provider 05/16/23 Alan Olsen MD [address] [place] [address] [place] [address] Neurosurgery 11/28/19 Winston Restrepo MD [address] [place] [address] Dr HOLLAND 503_Ne[place]rological [place] [address] Neurosurgery 12/01/19 Chris Metz MD [address] [place] [address] Interventional Pain Management 12/01/19 documented as of this encounter Additional Source Comments The information contained in this document represents components of the legal health record. It is not the complete legal health record.[facility]
--- OUTSIDE RECORDS SUMMARY | 2025-01-09 17:43 | XMS_ITS | Encounter Summary ---
Author Organization [facility] Address [address] [employer] [facility] [address] [place] [address] Phone Care Team Providers Care Senior Bioinformatics Scientist Name Role Phone Prasad Claire MD Primary Care Provider Prasad Claire MD Unavailable [phone] Alan Olsen MD Unavailable Winston Restrepo MD Unavailable [phone] Chris Metz MD Unavailable Encounter Details Date Type Department Care Team (Latest Contact Info) Description 10/13/2024 Ancillary Orders [facility] Internal Medicine [address] [place], [place] [phone] Shilpi Thornton PA-C [address] [place], [place] [phone] [email or web address] Bilateral hip pain (Primary Dx); Right sided [...] as of this encounter Care Teams Senior Bioinformatics Scientist Relationship Specialty Start Date End Date Prasad Claire MD [address] [place] [address] [email or web address] PCP - General 11/27/16 Prasad Claire MD [address] [place] [address] Insurance Assigned Provider 05/16/23 Alan Olsen MD [address] [place] [address] [place] [address] Neurosurgery 11/28/19 Winston Restrepo MD [address] [place] [address] Dr NGUYEN_[place]rological [place] [address] Neurosurgery 12/01/19 Chris Metz MD [address] [place] [address] Interventional Pain Management 12/01/19 documented as of this encounter Additional Source Comments The information contained in this document represents components of the legal health record. It is not the complete legal health record.[facility]
--- OUTSIDE RECORDS SUMMARY | 2025-01-09 17:43 | XMS_ITS | Encounter Summary ---
Author Organization [facility] Address [address] [employer] [facility] [address] [place] [address] Phone Care Team Providers Care Workers Compensation Claims Analyst Name Role Phone Prasad Claire MD Primary Care Provider [phone] Prasad Claire MD Unavailable [phone] VtAlan MD Unavailable Winston Restrepo MD Unavailable [phone] Chris Metz MD Unavailable Encounter Details Date Type Department Care Team (Late st Contact Info) Description 11/10/2019 Procedure Pass [facility], [address] [address] Social History Tobacco Use Types Packs/Day Years [...] documented as of this encounter Care Teams Workers Compensation Claims Analyst Relationship Specialty Start Date End Date Prasad Claire MD [address] [place] [address] PCP - General 11/27/16 Prasad Claire MD [address] [place] [address] Insurance Assigned Provider 05/16/23 VtAlan MD [address] [place] [address] [place] [address] Neurosurgery 11/28/19 Winston Restrepo MD [address] [place] [address] Dr HOLLAND 503_[place]rological [place] [address] Neurosurgery 12/01/19 Chris Metz MD [address] [place] [address] Interventional Pain Management 12/01/19 documented as of this encounter Additional Source Comments The information contained in this document represents components of the legal health record. It is not the complete legal health record.[facility]
--- OUTSIDE RECORDS SUMMARY | 2025-01-09 17:43 | XMS_ITS | Encounter Summary ---
Author Organization [facility] Address [address] [employer] [facility] [address] [place] [address] Phone Care Team Providers Care Ceo & Co Founder Name Role Phone Prasad Claire MD Primary Care Provider [phone] Prasad Claire MD Unavailable [phone] CtAlan MD Unavailable Winston Restrepo MD Unavailable [phone] Chris Metz MD Unavailable Encounter Details Date Type Department Care Team (Latest Contact Info) Description 06/22/2020 Transcribe Orders Virtual Department [address] [place] [address] Lucia Garcia MD [address] [place], [place] [phone] [email or web address] Pre-procedure lab exam (Primary Dx) Social History [...] Order (07/13/2020 11:05 AM EDT) COVID-19 Comment [id number] [facility] COVID Testing Status In-house testing being performed [facility] 07/13/2020 11:0 5 AM EDT 07/13/2020 1:20 PM EDT us Lucia Garcia MD LAB GENERAL ORDERABLES Final Re sult [address] [address] documented in this encounter Visit Diagnoses Diagnosis Pre-procedure lab exam- Primary Pre-procedural laboratory examination documented in this encounter Additional Health Concerns Assessment Noted Time PHQ-2 Depression Total Score: 0 03/08/19 21 8:53 AM EST documented as of this encounter Care Teams Ceo & Co Founder Relationship Specialty Start Date End Date Prasad Claire MD [address] [place] [address] [email or web address] PCP - General 11/27/16 Prasad Claire MD [address] [place] [address] [email or web address] Insurance Assigned Provider 05/16/23 Alan Olsen MD [address] [place] [address] [place] [address] Neurosurgery 11/28/19 Winston Restrepo MD [address] [place] [address] Dr NGUYEN_Ne[place]rological [place] [address] Neurosurgery 12/01/19 Chris Metz MD [address] [place] [address] Interventional Pain Management 12/01/19 documented as of this encounter Additional Source Comments The information contained in this document represents components of the legal health record. It is not the complete legal health record.[facility]
--- OUTSIDE RECORDS SUMMARY | 2025-01-09 17:43 | XMS_ITS | Encounter Summary ---
Author Organization [facility] Address [address] [employer] [facility] [address] [place] [address] Phone Care Team Providers Care Production Associate Name Role Phone Prasad Claire MD Primary Care Provider [phone] Prasad Claire MD Unavailable [phone] AzAlan MD Unavailable Winston Restrepo MD Unavailable [phone] Chris Metz MD Unavailable Encounter Details Date Type Department Care Team (Late st Contact Info) Description 09/18/2022 Procedure Pass [facility] Endoscopy Admitting Dept Virtual Department [address] [place] [address] Social History Tobacco Use Types Packs/Day Years [...] documented as of this encounter Care Teams Production Associate Relationship Specialty Start Date End Date Prasad Claire MD [address] [place] [address] PCP - General 11/27/16 Prasad Claire MD [address] [place] [address] Insurance Assigned Provider 05/16/23 Az, Alan Alvarez MD [address] [place] [address] [place] [address] Neurosurgery 11/28/19 Winston Restrepo MD [address] [place] [address] Dr NGUYEN_Ne[place]rological [place] [address] Neurosurgery 12/01/19 Chris Metz MD [address] [place] [address] Interventional Pain Management 12/01/19 documented as of this encounter Additional Source Comments The information contained in this document represents components of the legal health record. It is not the complete legal health record.[facility]
--- OUTSIDE RECORDS SUMMARY | 2025-01-09 17:43 | XMS_ITS | Encounter Summary ---
Author Organization [facility] Address [address] [facility] [address] [place] [address] Phone Care Team Providers Care Algorithm Design Engineer Name Role Phone Prasad Claire MD Primary Care Provider [phone] Prasad Claire MD Unavailable [phone] Alan Olsen MD Unavailable Winston Restrepo MD Unavailable [phone] Chris Metz MD Unavailable Encounter Details Date Type Department Care Team (Late st Contact Info) Description 12/28/2024 Orders Only [facility] Internal Medicine [address] [place] [address] Provider, MD Shannon [facility] [place] [phone] Social History Tobacco Use Types Packs/Day Years [...] documented as of this encounter Care Teams Algorithm Design Engineer Relationship Specialty Start Date End Date Prasad Claire MD [address] [place] [address] PCP - General 11/27/16 Prasad Claire MD [address] [place] [address] [email or web address] Insurance Assigned Provider 05/16/23 Raúl, Alan Alvarez MD [address] [place] [address] [place] [address] Neurosurgery 11/28/19 Winston Restrepo MD [address] [place] [address] Dr NGUYEN_Ne[place]rological [place] [address] Neurosurgery 12/01/19 Chris Metz MD [address] [place] [address] Interventional Pain Management 12/01/19 documented as of this encounter Additional Source Comments The information contained in this document represents components of the legal health record. It is not the complete legal health record.[facility]
[2025-01-13 10:33] VITALS: BMI 23.8
[2025-01-24] VITALS (10 sets, daily range): BP systolic 133–158; BP diastolic 56–71; PULSE 80–99; RESP 10–16; TEMP 36.1–37; O2SAT 92–96
--- NOTE | ~2025-01-24 | FL_ITS ---
EXAMINATION: FLUOROSCOPY GUIDANCE FOR NEEDLE PLACEMENT CLINICAL INFORMATION: L3-5 Decompression Left COMPARISON: Previous lumbar spine MRI December 2024 TECHNIQUE: Intraoperative fluoroscopic guidance provided for lumbar spine surgery. FINDINGS: Single lateral intraoperative view of the lumbar spine submitted. This demonstrates surgical instrument posterior to the L4-5 disc space level. FLUOROSCOPY TIME: 4 seconds DOSE AREA PRODUCT: 0.56 Gy-cm2 FL/FL guidance in OR IMPRESSION: Fluoroscopy guidance for lumbar spine surgery. Electronically signed by: Nida Thomson MD 01/24/2025 12:01 PM [facility]
[2025-01-24] MEDS: Lactated Ringers 1,000 ML 100 ML IVCONT (08:55)
--- NOTE | 2025-01-24 09:27 | MHC.SHP ---
Pre-Procedural Eval Section A - 24 Hr Update-Section A only Date of Service: 01/24/25 The patient is an INPATIENT: No Section B - Complete if H&P > 30 days Chief Complaint: Other symptoms and signs involving the nervous Allergies: Allergies Allergy/AdvReac Type Severity Reaction Status Date / Time No Known Allergies Allergy Verified 02/25/24 10:53 Review of Systems Sugical H&P ROS: Negative: Constitution, Cardiovascular, Respiratory, Neurological, Psychiatric, Hem-Onc, Allergic/Immunologic, Gastrointestinal, Genitourinary, Musculoskeletal, Integumentary, Endocrine and Eyes/Ears/Nose/Throat Exam Surgical H&P Exam: Normal: HEENT, Normal: Heart, Normal: Lungs, Normal: Extremities, Normal: Abdomen, Normal: Skin and Normal: Neurological (Awake, alert) Plan Diagnosis/Plan: Unchanged I have reviewed the history and physical and performed a pertinent physical examination on my patient. No changes have occurred unless specified. left L3-4 and L4-5 decompression Time Spent With Patient Time: Total time managing care of this patient today __5__ minutes.
--- NOTE | 2025-01-24 09:59 | HO.ANESPROP2 ---
Documented by User: Ana Hurtado NP 01/16/25 12:14 HPI - Anesthesia Eval Consult details Narrative: 79yo F for Left L3-4,L4-5 Lumbar Decompression, 01/24/25 s/p L4-5 Microlumber discectomy 12/2023 with GA-ETT 7 PMFSH Active Problems Active Problems: All Active Problems Status post lumbar discectomy (Acute) Neurogenic claudication (Acute) Left hip pain (Acute) Lumbar disc herniation (Acute) Past Medical History Medical History (Updated 01/13/25 @ 10:39 by Yaritza Carlisle RN) Numbness and tingling of left leg HLD (hyperlipidemia) GERD (gastroesophageal reflux disease) Migraine headache Aneurysm of infrarenal abdominal aorta Osteoarthritis Osteoporosis Elevated cholesterol HTN (hypertension) Spinal stenosis Family History Family history of problems with anesthesia: No Surgical History Surgical History (Updated 01/13/25 @ 10:37 by Yaritza Cralisle RN) History of spinal surgery (12/24/23) Hx of breast biopsy Hx of cholecystectomy Hx of lumbar discectomy History of esophagogastroduodenoscopy (EGD) H/O colonoscopy Hx of arthroscopic knee surgery History of Problems with Anesthesia: No Social History Social History (Updated 02/16/24 @ 11:10 by Max Green) Are you a primary managed care liaison to a significant other at home: Yes ( 86 yr with early dementia) Do you presently have visiting nurse or other home services: No Alcohol intake: never Comment: using walker currently due to back issues Patient Tobacco Use Status: Current everyday Tobacco user Tobacco use type: Cigarette Cigarettes Per Day: 4 Years Smoked: 25 Smoked in Last 30 Days: Yes Use of substances other than those prescribed or required for medical reasons: No Have you been hit, kicked, punched, or otherwise hurt by someone within the past year? If so, by whom?: No Are you DNR?: No Advance Directives: No Advance Directives Information Provided: Yes Advance Directives on File: No Advance Directives Date on File: 10/28/10 Current occupational status: retired Meds Allergies Allergy/AdvReac Type Severity Reaction Status Date / Time No Known Allergies Allergy Verified 02/25/24 10:53 Home Medications ?Medication ?Instructions ?Recorded ?Confirmed ?Last Taken ?Type snrkmwv-jqoippybiibnw-osyanqqo 250 1 tab PO Q4-6H PRN Migraine 12/22/23 01/13/25 12/17/23 History mg-250 mg-65 mg tablet (Excedrin Headache Migraine) Held on 12/24/23. Instructions: Resume on 12/25/23. calcium 600 mg (as carbonate)-vit 1 tab PO DAILY 12/22/23 01/13/25 12/21/23 History D3 20 mcg (800 unit) chewable tablet (Caltrate plus D) celecoxib 200 mg capsule 200 mg PO DAILY 12/22/23 01/13/25 12/21/23 History Held on 12/24/23. Instructions: Resume on 12/25/23. coenzyme Q10 100 mg capsule (Co 100 mg PO DAILY 12/22/23 01/13/25 12/21/23 History Q-10) gabapentin 300 mg capsule 600 mg PO TID 12/22/23 01/13/25 12/21/23 History glucosamine sulfate 500 mg tablet 500 mg PO DAILY 12/22/23 01/13/25 12/21/23 History (Glucosamine) losartan 25 mg tablet 25 mg PO DAILY 12/22/23 01/13/25 12/22/23 History omeprazole 20 mg capsule,delayed 20 mg PO BID 12/22/23 01/13/25 12/24/23 History release oxycodone 5 mg tablet 10 mg PO Q6H PRN Pain 12/22/23 01/13/25 12/24/23 History pravastatin 80 mg tablet 80 mg DAILY 12/22/23 01/13/25 12/21/23 History turmeric 400 mg capsule 400 mg PO DAILY 12/22/23 01/13/25 12/21/23 History Exam Height,Weight and Vital Signs: Height 5 ft 2 in Weight 58.967 kg Pertinent Lab Results Pertinent Lab Results: CBC and BMP 12/2024 from outside facility WNL Assessment and Plan Assessment Anesthesia Assessment: Chart Reviewed Final Anesthetic Review Family History of Problems with Anesthesia: No History of Problems with Anesthesia: No Documented by User: Tamia Duke DO 01/24/25 10:01 [facility] Past Medical History Medical History (Updated 01/13/25 @ 10:39 by Yaritza Carlisle, RN) Numbness and tingling of left leg HLD (hyperlipidemia) GERD (gastroesophageal reflux disease) Migraine headache Aneurysm of infrarenal abdominal aorta Osteoarthritis Osteoporosis Elevated cholesterol HTN (hypertension) Spinal stenosis Family History Family history of problems with anesthesia: No Surgical History Surgical History (Updated 01/13/25 @ 10:37 by Yaritza Carlisle, ZULAY) History of spinal surgery (12/24/23) Hx of breast biopsy Hx of cholecystectomy Hx of lumbar discectomy History of esophagogastroduodenoscopy (EGD) H/O colonoscopy Hx of arthroscopic knee surgery History of Problems with Anesthesia: No Social History Social History (Updated 02/16/24 @ 11:10 by Max Green) Are you a primary managed care liaison to a significant other at home: Yes ( 86 yr with early dementia) Do you presently have visiting nurse or other home services: No Alcohol intake: never Comment: using walker currently due to back issues Patient Tobacco Use Status: Current everyday Tobacco user Tobacco use type: Cigarette Cigarettes Per Day: 4 Years Smoked: 25 Smoked in Last 30 Days: Yes Use of substances other than those prescribed or required for medical reasons: No Have you been hit, kicked, punched, or otherwise hurt by someone within the past year? If so, by whom?: No Are you DNR?: No Advance Directives: No Advance Directives Information Provided: Yes Advance Directives on File: No Advance Directives Date on File: 10/28/10 Current occupational status: retired [employer] Allergies Allergy/AdvReac Type Severity Reaction Status Date / Time No Known Allergies Allergy Verified 02/25/24 10:53 Home Medications ?Medication ?Instructions ?Recorded ?Confirmed ?Last Taken ?Type msuikcz-mqlicqubnmrmc-iutmlbvx 250 1 tab PO Q4-6H PRN Migraine 12/22/23 01/13/25 12/17/23 History mg-250 mg-65 mg tablet (Excedrin Headache Migraine) Held on 12/24/23. Instructions: Resume on 12/25/23. calcium 600 mg (as carbonate)-vit 1 tab PO DAILY 12/22/23 01/13/25 12/21/23 History D3 20 mcg (800 unit) chewable tablet (Caltrate plus D) celecoxib 200 mg capsule 200 mg PO DAILY 12/22/23 01/13/25 12/21/23 History Held on 12/24/23. Instructions: Resume on 12/25/23. coenzyme Q10 100 mg capsule (Co 100 mg PO DAILY 12/22/23 01/13/25 12/21/23 History Q-10) gabapentin 300 mg capsule 600 mg PO TID 12/22/23 01/13/25 12/21/23 History glucosamine sulfate 500 mg tablet 500 mg PO DAILY 12/22/23 01/13/25 12/21/23 History (Glucosamine) losartan 25 mg tablet 25 mg PO DAILY 12/22/23 01/13/25 12/22/23 History omeprazole 20 mg capsule,delayed 20 mg PO BID 12/22/23 01/13/25 12/24/23 History release oxycodone 5 mg tablet 10 mg PO Q6H PRN Pain 12/22/23 01/13/25 12/24/23 History pravastatin 80 mg tablet 80 mg DAILY 12/22/23 01/13/25 12/21/23 History turmeric 400 mg capsule 400 mg PO DAILY 12/22/23 01/13/25 12/21/23 History Exam Exam Date and Time: 01/24/25 0955 Height,Weight and Vital Signs: Height 5 ft 2 in Weight 58.967 kg Vital Signs Temperature 98.6 F 01/24/25 08:46 Pulse Rate 80 01/24/25 08:46 Respiratory Rate 16 01/24/25 08:46 Blood Pressure 133/56 L 01/24/25 08:46 Pulse Oximetry 93 01/24/25 08:46 Oxygen Delivery Method Room Air 01/24/25 08:46 Temperature 98.6 F 01/24/25 08:46 Pulse Rate 80 01/24/25 08:46 Respiratory Rate 16 01/24/25 08:46 Blood Pressure 133/56 L 01/24/25 08:46 Pulse Oximetry 93 01/24/25 08:46 Oxygen Delivery Method Room Air 01/24/25 08:46 Airway Mallampati Class: II TM Dist: <=3cm Neck ROM: Full Loose/Missing/Broken Teeth: No (patient denies any loose or broken teeth) Heart: S1S2 Lungs: CTAB Assessment and Plan Assessment Anesthesia Assessment: Anesthesia Plan Discussed and Chart Reviewed Final Anesthetic Review Family History of Problems with Anesthesia: No History of Problems with Anesthesia: No NPO: Yes ASA Class: II Final Preanesthetic Review: No Changes in Pt Med Stat, Meds/Allgs Chart Reviewed, Consent Obtained/Reviewed and Anes Risks/Benef Reviewed Patient Risk: Low Procedure Risk: Intermediate Anesthetic Plan Anesthetic Plan: GA and Agree w/ Assess. and Plan Disposition: Standard PACU
--- NOTE | 2025-01-24 10:21 | P.DS_ITS ---
DS: Providers Provider Date of admission: 01/24/2025 Date of discharge: 01/24/25 Primary care physician: Prasad Claire MD Admitting clinician: Daniel Tai DS: Diagnosis Discharge Diagnosis (1) Neurogenic claudication: Status: Acute DS: Summary Time Attestation Discharge Coordination Time (in mins): 5 Quality: Safe Use of Opioids Does Pt have an Active Cancer Diagnosis on the Problem List?: No Quality: Stroke Does the patient have a stroke diagnosis?: No Physical Exam Vital Signs: Vital Signs: Last Vital Signs Temp 98.6 F 01/24/25 08:46 Pulse 80 01/24/25 08:46 Resp 16 01/24/25 08:46 BP 133/56 L 01/24/25 08:46 Pulse Ox 93 01/24/25 08:46 O2 Del Method Room Air 01/24/25 08:46 BMI result Body Mass Index 23.8 Discharge Plan Discharge Patient Disposition: Home, Self-Care Referrals: Prasad Claire MD [Primary Care Provider, Internal Medicine] - 1 Week Discharge Medications: New docusate sodium [Colace] 100 mg capsule 100 mg PO BID Qty: 20 0RF oxycodone 5 mg tablet 5 mg PO Q4H PRN (Reason: pain) Qty: 20 0RF Rx Instructions: Partial Fill upon patient request. Continued celecoxib 200 mg capsule 200 mg PO DAILY pravastatin 80 mg tablet 80 mg DAILY losartan 25 mg tablet 25 mg PO DAILY omeprazole 20 mg capsule,delayed release(DR/EC) 20 mg PO BID glucosamine sulfate [Glucosamine] 500 mg Tablet 500 mg PO DAILY Rx Instructions: administer with a meal coenzyme Q10 [Co Q-10] 100 mg Capsule 100 mg PO DAILY Caltrate 600 plus D 600 mg-20 mcg (800 unit) Tablet,Chewable 1 tab PO DAILY gabapentin 300 mg capsule 600 mg PO TID oxycodone 5 mg tablet 10 mg PO Q6H PRN (Reason: Pain) turmeric 400 mg Capsule 400 mg PO DAILY Held mmmsvjy-vhhcvwbsnilim-ryufhbxi [Excedrin Migraine] 250-250-65 mg Tablet 1 tab PO Q4-6H PRN (Reason: Migraine Headache) Hold Instructions: Resume on 01/31/25. You may resume 1 week after surgery Discharge Orders: Discharge Order (Routine); Ordered 01/24/25 Ordered By: Jeison Jacques Diet: Advance to usual diet Activity on Discharge: As tolerated Activity Restrictions/Additional Instructions: After your spinal surgery we ask you to observe the following restrictions/guidelines: Activity: It is normal to feel some discomfort as you increase your activity, but that will improve with time. We ask you avoid heavy lifting or acitivities that cause pain. As a general rule, 8lbs is a safe limit for lifting right after surgery. Walk as much as you feel comfortable but not to exhaustion. You will feel extra tired the first few days after surgery. Stay well hydrated. It is OK to walk up and down stairs You may return to driving when you are off narcotics (such as vicodin, oxycodone, dilaudid, etc), and you are back to normal functional capacity. If you have any concerns please check with office before driving. Return to work is specific to each patient and each surgery, so please speak with your doctor/PA at first follow up. Please bring paperwork such as FMLA at that time if you need it filled out. Medications: For optimum pain control, it is best to start with a combination of 500 mg of Tylenol every 4 hours with 600 mg of Motrin every 8 hours, and use narcotics as needed in between for breakthrough pain. We will give you a short supply of narcotics after surgery (usually one weeks worth). If you need more please call the office but do not use more than prescribed. You will need to give our office 48 hours notice if you need narcotics refilled and we do not fill narcotics on weekends or evenings. If you are on a narcotic, it is a good idea to take a stool softener such as colace or senna to avoid constipation If you take blood thinner such as aspirin, Plavix, Coumadin, Effient, Eliquis etc for conditions such as Afib, DVT, Pulmonary embolus, coronary disease, stents etc please speak with your surgeon about specific details as to when you can resume these medications. Follow up: Please call the office, , after surgery to arrange a 3 week follow up for wound check. Wound Care: You may remove your dressing on the first day after surgery. ?You may ?leave open to air. Please do not remove the steri strips underneath. they will fall off on their own in one week. IT IS NORMAL FOR THE WOUND TO OOZE OR BE BLOODY FOR A FEW DAYS AFTER SURGERY. ?IF THIS HAPPENS JUST PLACE NEW DRESSING OVER IT TO AVOID STAINING CLOTHES. You may shower on post op day # 1 We ask that you do not let the water soak the wound. If it does get wet, just towel dry lightly. Please do not scrub your incision or place any type of chemical/ointment on the wound. No tub baths, pools or jacuzzis for one month. If you have any leaking or redness from your wound, or fevers, please call office Print Language: Armenian
--- NOTE | 2025-01-24 11:40 | P.OP_ITS ---
Operative Note Operative Note Date of Service: 01/24/25 Narrative: Preoperative Diagnosis: L3-4, L4-5 spinal stenosis/lateral recess stenosis and left lumbar radiculopathy Operation: Left L3-4, L4-5 Laminotomy, Partial facetectomy and foraminotomy with use of microscope Consent Informed Consent was obtained for this operation. I have explained the nature, purpose and benefits of the operation. I have discussed the risks and benefit of the operation including possible complications or adverse events with patient/family. Alternative(s) were discussed with the patient with their relative benefits and risks as well as the consequences of not accepting the operation were included in obtaining consent. Surgeon: CARLA ZEPEDA MD, PHD Procedure Assisted By: Jeison Contreras Description of Procedure This patient is suffering from a left lumbar radiculopathy. MRI shows lateral recess stenosis L3-4 L4-5 on the left side. The patient was offered a decompression. The procedure complications were explained. The patient was consented. The patient was brought to the operating room and endotracheally intubated. The patient was turned in prone position on the Carlin frame. Prep and drape was done followed by timeout. The Physician assistant branch manager provided access. A mid lumbar incision was made followed by release of the paravertebral muscle on the left side to expose the L3-4 and L4-5 lamina and facet joints. An intraoperative x-ray was obtained to confirm the correct level. The microscope was brought in. I took over the procedure. The high-speed drill was used to do a left L3-4 laminotomy until flavum ligament was reached. A #2 Kerrison was used to expand the laminotomy near flush to the pedicles and to include a partial facetectomy. The flavum ligament was opened and resected with a #3 Kerrison to decompress the underlying thecal sac. The flavum ligament was removed to decompress the lateral recess and the exiting L4 nerve root. A long nerve hook could be easily passed along the medial side of the pedicle as a sign of adequate decompression. Then attention was turned to the L4-5 level. The left L4-5 laminotomy was done. Partial facetectomy was done after which the flavum ligament was opened and resected to decompress the underlying thecal sac. The L5 nerve root was identified and decompressed of its trajectory. The dura was very thin and at 1 spot I preventatively left piece of DuraGen. The microscope was removed. Hemostasis was done. The physician assistant branch manager close the Incision in 2 layers. Steri-Strips were used to approximate incision. An OpSite with Tegaderm was used to cover the incision. All sponge needle counts were correct. Patient was extubated and transported in stable is to recovery room. Anesthesia: General Estimated Blood Loss (ml): 20 Complications: None Duration of Surgery: Under 60 Minutes Postoperative Plan: Discharge to home
== END 2025-01-24 13:44 | disposition home or self-care (01) ==
PROVIDERS: PCP Internal Medicine; Visit Provider Neurological Surgery
PROC: (CPT 63047; principal; 2025-01-24 11:00)
DX: M48.062 Spinal stenosis, lumbar region with neurogenic claudication (principal); M54.16 Radiculopathy, lumbar region; M79.605 Pain in left leg; R26.2 Difficulty in walking, not elsewhere classified; Z79.891 Long term (current) use of opiate analgesic; Z79.899 Other long term (current) drug therapy; F17.210 Nicotine dependence, cigarettes, uncomplicated; Z98.890 Other specified postprocedural states
CPT/HCPCS: 63047; 63048; C1763; J0131; J0690; J1100; J1885; J2003; J2405; J2704; J3010

== ENCOUNTER → 2025-01-24 08:14 | Outpatient (BNV) | payer MEDICARE, SELFPAY | PROVIDERS: PCP Internal Medicine; Visit Provider Neurological Surgery | DX: R29.818 Other symptoms and signs involving the nervous system (principal); M48.062 Spinal stenosis, lumbar region with neurogenic claudication | CPT/HCPCS: 63047; 63048; 99499 ==